=== PATIENT | male | born 1965 | race Caucasian/White ===

== ENCOUNTER 2020-10-25 15:24 | Inpatient (IN) | payer SELFPAY ==
--- NOTE | 2020-10-25 16:06 | Event Note ---
ED Screening Note ED Screening Note: Language line used for Turkmen interpretation Patient had an injury 3 weeks ago He states that he had a friend use a needle to open and drain and reports that there was pus There is now swelling and redness to the medial right ankle Patient is a diabetic no allergies to meds This initial assessment/diagnostic orders/clinical plan/treatment(s) is/are subject to change based on patients health status, clinical progression and re- assessment by fellow clinical providers in the ED. Further treatment and workup at subsequent clinical providers discretion. Patient/guardian urged not to elope from the ED as their condition may be serious if not clinically assessed and managed. Initial orders include: labs, xr, ekg
[2020-10-25 16:31] LABS: Hematocrit 44.5 % (35.5-45.6); Hemoglobin 14.7 gm/dl (11.8-15.2); Mean Corpuscular HGB Conc 33 % (32-34); Mean Corpuscular Volume 92 fl (84-94); Platelet Count 314 K/mm3 (140-440); Red Blood Count 4.82 M/mm3 (3.65-5.03); Red Cell Distribution Width 13.5 % (13.2-15.2)
[2020-10-25 16:48] LABS: Alanine Aminotransferase 59 units/L (7-56); Albumin 3.4 g/dL (3.9-5); BUN/Creatinine Ratio 15; Blood Urea Nitrogen 12 mg/dL (9-20); Calcium 9.7 mg/dL (8.4-10.2); Hemolysis Index 12
[2020-10-25] MEDS ORDERED: VANCOMYCIN/NS 1 GM/250 ML 1 GM/250 ML BAG IV ONE (16:55)
[2020-10-25] MEDS ORDERED: CEFEPIME/NS 1 GM/100 ML 1 GM/100 ML BAG IV ONE (16:55)
[2020-10-25] MEDS ORDERED: ONDANSETRON 4 MG/2 ML INJ IV ONE (16:56)
[2020-10-25] MEDS ORDERED: fentaNYL 100 MCG/2 ML INJ IV ONE (16:56)
[2020-10-25] MEDS ORDERED: SODIUM CHLORIDE 0.9% 1000 ML 1,000 ML IV ONE ×2 (16:56)
--- NOTE | 2020-10-25 17:01 | Emergency Department Report ---
HPI - General Chief Complaint: Extremity Injury, Lower Time Seen by Provider: 10/25/20 16:03 - [facility] HPI: Room 6 The patient is a 55-year-old male present with a chief complaint of right foot pain and swelling. The patient states for the past 3 weeks he noticed swelling initially at the heel of his right foot. This time progressed the swelling increased. Patient states the foot continued to swell and developed erythema and today developed a yellow drainage. Patient denies history of fever. Patient is diabetic ED Past Medical Hx - Past Medical History Hx Diabetes: Yes - Surgical History Past Surgical History?: No - Family History Family history: no significant - Social History Smoking Status: Never Smoker Substance Use Type: None (Denies illicit drug use), Alcohol (Moderate) ED Review of Systems ROS: Stated complaint: RT FT SWOLLEN PAIN DIABETIC Other details as noted in HPI Constitutional: denies: fever Eyes: denies: eye pain ENT: denies: throat pain Respiratory: no symptoms reported Cardiovascular: denies: chest pain Endocrine: no symptoms reported Gastrointestinal: denies: abdominal pain Genitourinary: denies: dysuria Musculoskeletal: myalgia Skin: change in color Neurological: denies: headache Physical Exam - Physical Exam Vital Signs: Vital Signs 10/25/20 15:52 Temperature 99.1 F Pulse Rate 159 H Respiratory 20 Rate Blood Pressure 136/89 O2 Sat by Pulse 98 Oximetry Physical Exam: GENERAL: The patient is well-developed well-nourished male lying on stretcher not appearing to be in acute distress. [] HEENT: Normocephalic. Atraumatic. Extraocular motions are intact. Patient has moist mucous membranes. NECK: Supple. Trachea midline CHEST/LUNGS: Clear to auscultation. There is no respiratory distress noted. HEART/CARDIOVASCULAR: Regular. There is tachycardia. There is no gallop rub or murmur. ABDOMEN: Abdomen is soft, nontender. Patient has normal bowel sounds. There is no abdominal distention. SKIN: There is erythema encompassing the medial aspect of the right ankle. The swelling and induration to the heel no swelling to the lateral aspect of the right ankle. The foot is tender to palpation with evidence of dried yellow discharge present on the heel NEURO: The patient is awake, alert, and oriented. The patient is cooperative. The patient has no focal neurologic deficits. The patient has normal speech MUSCULOSKELETAL: There is no evidence of acute injury. ED Course Vital Signs 10/25/20 15:52 Temperature 99.1 F Pulse Rate 159 H Respiratory 20 Rate Blood Pressure 136/89 O2 Sat by Pulse 98 Oximetry ED Medical Decision Making - Lab Data Result diagrams: 10/25/20 16:21 10/25/20 16:21 Laboratory Tests 10/25/20 10/25/20 10/25/20 16:21 16:21 16:21 WBC 21.1 H RBC 4.82 Hgb 14.7 Hct 44.5 MCV 92 MCH 31 MCHC 33 RDW 13.5 Plt Count 314 Seg Neutrophils % It Security Consultant Sodium 127 L Potassium 5.2 H Chloride 89.4 L Carbon Dioxide 26 Anion Gap 17 BUN 12 Creatinine 0.8 Estimated GFR > 60 BUN/Creatinine Ratio 15 Glucose 397 H Lactic Acid 1.90 Calcium 9.7 Total Bilirubin 0.80 AST 25 ALT 59 H Alkaline Phosphatase 350 H C-Reactive Protein 16.70 H Total Protein 8.4 H Albumin 3.4 L Albumin/Globulin Ratio 0.7 - EKG Data -: EKG Interpreted by Me EKG shows normal: sinus rhythm Rate: tachycardia (159 bpm) - EKG Data When compared to previous EKG there are: previous EKG unavailable Interpretation: nonspecific ST-T wave len - Radiology Data Radiology results: report reviewed (Right foot x-ray, right ankle x-ray), image reviewed (Right foot x-ray, right ankle x-ray) interpreted by me: Right foot x-ray-no acute fracture, no foreign body seen, no dislocation Right ankle x-ray-no acute fracture, no dislocation. No foreign body seen [facility] [address] [place] [address] X Ray Report Signed Patient: PATRICIA PATTERSON MR#: [id number] 9 : 1965 Acct:[id number] Age/Sex: 55 / M ADM Date: 10/25/20 Loc: ED Attending Dr: Ordering Physician: TOM LYNN Date of Service: 10/25/20 Procedure(s): XR foot 3+V RT Accession Number(s): [id number] cc: TOM LYNN Fluoro Time In Minutes: RIGHT ANKLE 3 VIEW(S) INDICATION / CLINICAL INFORMATION: injury 3 weeks ago, now swelling and redness COMPARISON: None available. FINDINGS: BONES / JOINT(S): No acute fracture or subluxation. No significant arthritis. SOFT TISSUES: There is calcific atherosclerosis ADDITIONAL FINDINGS: None. RIGHT FOOT 3 VIEW(S) INDICATION / CLINICAL INFORMATION: injury 3 weeks ago, now swelling and redness COMPARISON: None available. FINDINGS: BONES / JOINT(S): No acute fracture or subluxation. No significant arthritis. SOFT TISSUES: There is calcific atherosclerosis ADDITIONAL FINDINGS: None. Signer Name: Arpan Orosco DO Signed: 10/25/2020 5:18 PM Workstation Name: [employer] Transcribed By: OSMAR Dictated By: ARPAN OROSCO DO Electronically Authenticated By: ARPAN OROSCO DO Signed Date/Time: 10/25/201717 DD/ 16 TD/TT: Print Cancel [facility] [address] [place] [address] XRay Report Signed Patient: PATRICIA PATTERSON MR#: [id number] 9 : 1965 Acct:[id number] Age/Sex: 55 / M ADM Date: 10/25/20 Loc: ED Attending Dr: Ordering Physician: TOM LYNN Date of Service: 10/25/20 Procedure(s): XR ankle 3+V RT Accession Number(s): [id number] cc: TOM LYNN Fluoro Time In Minutes: RIGHT ANKLE 3 VIEW(S) INDICATION / CLINICAL INFORMATION: injury 3 weeks ago, now swelling and redness COMPARISON: None available. FINDINGS: BONES / JOINT(S): No acute fracture or subluxation. No significant arthritis. SOFT TISSUES: There is calcific atherosclerosis ADDITIONAL FINDINGS: None. RIGHT FOOT 3 VIEW(S) INDICATION / CLINICAL INFORMATION: injury 3 weeks ago, now swelling and redness COMPARISON: None available. FINDINGS: BONES / JOINT(S): No acute fracture or subluxation. No significant arthritis. SOFT TISSUES: There is calcific atherosclerosis ADDITIONAL FINDINGS: None. Signer Name: Arpan Orosco DO Signed: 10/25/2020 5:18 PM Workstation Name: [employer] Transcribed By: OSMAR Dictated By: ARPAN OROSCO DO Electronically Authenticated By: ARPAN OROSCO DO Signed Date/Time: 10/25/201717 DD/ 16 TD/TT: Print Cancel - Differential Diagnosis Diabetic foot infection Critical care attestation.: If time is entered above; I have spent that time in minutes in the direct care of this critically ill patient, excluding procedure time. ED Disposition Clinical Impression: Diabetic infection of right foot Disposition: OP ADMIT IP TO THIS HOSP Is pt being admited?: Yes Does the pt Need Aspirin: No Condition: Fair Instructions: Diabetes Mellitus Type 2 in Adults (ED) Time of Disposition: 17:58 (Hospitalist paged (Dr Abdalla))
--- NOTE | 2020-10-25 17:23 | XRay Report ---
RIGHT ANKLE 3 VIEW(S) INDICATION / CLINICAL INFORMATION: injury 3 weeks ago, now swelling and redness COMPARISON: None available. FINDINGS: BONES / JOINT(S): No acute fracture or subluxation. No significant arthritis. SOFT TISSUES: There is calcific atherosclerosis ADDITIONAL FINDINGS: None. RIGHT FOOT 3 VIEW(S) INDICATION / CLINICAL INFORMATION: injury 3 weeks ago, now swelling and redness COMPARISON: None available. FINDINGS: BONES / JOINT(S): No acute fracture or subluxation. No significant arthritis. SOFT TISSUES: There is calcific atherosclerosis ADDITIONAL FINDINGS: None. Signer Name: Arpan Ferrara DO Signed: 10/25/2020 5:18 PM Workstation Name: [email or web address]
[2020-10-25 17:54] LABS: RBC Morphology Normal; Total Cells Counted 100
[2020-10-25] MEDS ORDERED: ONDANSETRON 4 MG/2 ML INJ IV PRN (22:49)
--- NOTE | 2020-10-25 22:49 | History and Physical Report ---
History of Present Illness Date of examination: 10/25/20 Date of admission: 10/25/20 18:00 Chief complaint: Right ankle swelling and drainage for 1 week History of present illness: 55-year-old male with history of diabetes noncompliance has been having 3 weeks swelling of the right ankle and the heel with small amount of drainage on the medial part of the right ankle. Also redness on the right ankle and painful. Patient has not been taking any medications for his diabetes. Poor historian and language barrier present. No fever or chills. Pain is about 6 on a scale of 1-10. - Past Medical History Hx Diabetes: Yes - Surgical History Past Surgical History?: No - Family History Family history: no significant - Social History Smoking Status: Never Smoker Substance Use Type: None (Denies illicit drug use), Alcohol (Moderate) Review of Systems ROS: Stated complaint: RT FT SWOLLEN PAIN DIABETIC Other details as noted in HPI Constitutional: denies: fever Eyes: denies: eye pain ENT: denies: throat pain Respiratory: no symptoms reported Cardiovascular: denies: chest pain Endocrine: no symptoms reported Gastrointestinal: denies: abdominal pain Genitourinary: denies: dysuria Musculoskeletal: myalgia Skin: change in color Neurological: denies: headache Medications and Allergies Allergies Allergy/AdvReac Type Severity Reaction Status Date / Time No Known Allergies Allergy Unverified 10/25/20 17:13 Exam - Constitutional Vitals: Temp Pulse Resp BP Pulse Ox 99.1 F 160 H 20 114/71 98 10/25/20 15:52 10/25/20 21:58 10/25/20 21:58 10/25/20 21:58 10/25/20 21:58 General appearance: Present: no acute distress, well-nourished - EENT Eyes: Present: PERRL ENT: hearing intact, clear oral mucosa - Neck Neck: Present: supple, normal ROM - Respiratory Respiratory effort: normal Respiratory: bilateral: CTA - Cardiovascular Heart rate: 78 Rhythm: regular Heart Sounds: Present: S1 & S2. Absent: rub, click - Extremities Extremities: pulses symmetrical, No edema, abnormal (Right ankle erythema present with slight drainage on the medial aspect. Also the lateral aspect of the heel is swollen.) Peripheral Pulses: within normal limits - Abdominal General gastrointestinal: Present: soft, non-tender, non-distended, normal bowel sounds Male genitourinary: Present: normal - Integumentary Integumentary: Present: clear, warm, dry - Musculoskeletal Musculoskeletal: gait normal, strength equal bilaterally - Psychiatric Psychiatric: appropriate mood/affect, intact judgment & insight - Neurologic Neurologic: CNII-XII intact, moves all extremities Results - Labs CBC & Chem 7: 10/26/20 04:31 10/26/20 04:31 Labs: Laboratory Last Values WBC 21.1 K/mm3 (4.5-11.0) H 10/25/20 16:21 RBC 4.82 M/mm3 (3.65-5.03) 10/25/20 16:21 Hgb 14.7 gm/dl (11.8-15.2) 10/25/20 16:21 Hct 44.5 % (35.5-45.6) 10/25/20 16:21 MCV 92 fl (84-94) 10/25/20 16:21 MCH 31 pg (28-32) 10/25/20 16:21 MCHC 33 % (32-34) 10/25/20 16:21 RDW 13.5 % (13.2-15.2) 10/25/20 16:21 Plt Count 314 K/mm3 (140-440) 10/25/20 16:21 Add Manual Diff Complete 10/25/20 16:21 Total Counted 100 10/25/20 16:21 Seg Neutrophils % Painter And Decorator 10/25/20 16:21 Seg Neuts % (Manual) 92.0 % (40.0-70.0) H 10/25/20 16:21 Lymphocytes % (Manual) 4.0 % (13.4-35.0) L 10/25/20 16:21 Monocytes % (Manual) 4.0 % (0.0-7.3) 10/25/20 16:21 Nucleated RBC % Not Reportable 10/25/20 16: Seg Neutrophils # Man 19.4 K/mm3 (1.8-7.7) H 10/25/20 16:21 Band Neutrophils # 0.0 K/mm3 10/25/20 16:21 Lymphocytes # (Manual) 0.8 K/mm3 (1.2-5.4) L 10/25/20 16:21 Abs React Lymphs (Man) 0.0 K/mm3 10/25/20 16:21 Monocytes # (Manual) 0.8 K/mm3 (0.0-0.8) 10/25/20 16:21 Eosinophils # (Manual) 0.0 K/mm3 (0.0-0.4) 10/25/20 16:21 Basophils # (Manual) 0.0 K/mm3 (0.0-0.1) 10/25/20 16:21 Metamyelocytes # 0.0 K/mm3 10/25/20 16:21 Myelocytes # 0.0 K/mm3 10/25/20 16:21 Promyelocytes # 0.0 K/mm3 10/25/20 16:21 Blast Cells # 0.0 K/mm3 10/25/20 16:21 WBC Morphology Not Reportable 10/25/20 16:21 Hypersegmented Neuts Not Reportable 10/25/20 16:21 Hyposegmented Neuts Not Reportable 10/25/20 16:21 Hypogranular Neuts Not Reportable 10/25/20 16:21 Smudge Cells Not Reportable 10/25/20 16:21 Toxic Granulation Not Reportable 10/25/20 16:21 Toxic Vacuolation Not Reportable 10/25/20 16:21 Dohle Bodies Not Reportable 10/25/20 16:21 Pelger-Huet Anomaly Not Reportable 10/25/20 16:21 Love Rods Not Reportable 10/25/20 16:21 Platelet Estimate Not Reportable 10/25/20 16:21 Clumped Platelets Not Reportable 10/25/20 16:21 Plt Clumps, EDTA Not Reportable 10/25/20 16:21 Large Platelets Not Reportable 10/25/20 16:21 Giant Platelets Not Reportable 10/25/20 16:21 Platelet Satelliting Not Reportable 10/25/20 16:21 Plt Morphology Comment Not Reportable 10/25/20 16:21 RBC Morphology Normal 10/25/20 16:21 Dimorphic RBCs Not Reportable 10/25/20 16:21 Polychromasia Not Reportable 10/25/20 16:21 Hypochromasia Not Reportable 10/25/20 16:21 Poikilocytosis Not Reportable 10/25/20 16:21 Anisocytosis Not Reportable 10/25/20 16:21 Microcytosis Not Reportable 10/25/20 16:21 Macrocytosis Not Reportable 10/25/20 16:21 Spherocytes Not Reportable 10/25/20 16:21 Pappenheimer Bodies Not Reportable 10/25/20 16:21 Sickle Cells Not Reportable 10/25/20 16:21 Target Cells Not Reportable 10/25/20 16:21 Tear Drop Cells Not Reportable 10/25/20 16:21 Ovalocytes Not Reportable 10/25/20 16:21 Helmet Cells Not Reportable 10/25/20 16:21 Paz-Klagetoh Bodies Not Reportable 10/25/20 16:21 Elmont Rings Not Reportable 10/25/20 16:21 Robinson Cells Not Reportable 10/25/20 16:21 Bite Cells Not Reportable 10/25/20 16:21 Crenated Cell Not Reportable 10/25/20 16:21 Elliptocytes Not Reportable 10/25/20 16:21 Acanthocytes (Spur) Not Reportable 10/25/20 16:21 Rouleaux Not Reportable 10/25/20 16:21 Hemoglobin C Crystals Not Reportable 10/25/20 16:21 Schistocytes Not Reportable 10/25/20 16:21 Malaria parasites Not Reportable 10/25/20 16:21 Brandon Bodies Not Reportable 10/25/20 16:21 Hem Pathologist Commnt No 10/25/20 16:21 Sodium 127 mmol/L (137-145) L 10/25/20 16:21 Potassium 5.2 mmol/L (3.6-5.0) H 10/25/20 16:21 Chloride 89.4 mmol/L (98-107) L 10/25/20 16:21 Carbon Dioxide 26 mmol/L (22-30) 10/25/20 16:21 Anion Gap 17 mmol/L 10/25/20 16:21 BUN 12 mg/dL (9-20) 10/25/20 16:21 Creatinine 0.8 mg/dL (0.8-1.3) 10/25/20 16:21 Estimated GFR > 60 ml/min 10/25/20 16:21 BUN/Creatinine Ratio 15 % 10/25/20 16:21 Glucose 397 mg/dL (75-100) H 10/25/20 16:21 Lactic Acid 1.90 mmol/L (0.7-2.0) 10/25/20 16:21 Calcium 9.7 mg/dL (8.4-10.2) 10/25/20 16:21 Total Bilirubin 0.80 mg/dL (0.1-1.2) 10/25/20 16:21 AST 25 units/L (5-40) 10/25/20 16:21 ALT 59 units/L (7-56) H 10/25/20 16:21 Alkaline Phosphatase 350 units/L (35-129) H 10/25/20 16:21 C-Reactive Protein 16.70 mg/dL (0.00-1.30) H 10/25/20 16:21 Total Protein 8.4 g/dL (6.3-8.2) H 10/25/20 16:21 Albumin 3.4 g/dL (3.9-5) L 10/25/20 16:21 Albumin/Globulin Ratio 0.7 % 10/25/20 16:21 Microbiology: Microbiology 10/25/20 16:21 Peripheral/Venous Blood Culture - Preliminary Culture in Progress 10/25/20 16:26 Peripheral/Venous Blood Culture - Preliminary Culture in Progress - Imaging and Cardiology Imaging and Cardiology: Ankle x-ray Calcific atherosclerosis No mention of soft tissues Foot x-ray No acute findings Assessment and Plan Advance Directives: Yes (Full code) VTE prophylaxis?: Chemical Plan of care discussed with patient/family: Yes - Patient Problems (1) Cellulitis of right foot Current Visit: Yes Status: Acute Plan to address problem: Right ankle swollen with drainage on the medial aspect There may be an underlying small abscess Surgical consult requested X-ray of the foot and ankle not helpful IV Unasyn and vancomycin initiated (2) T2DM (type 2 diabetes mellitus) Current Visit: Yes Status: Chronic Qualifiers: Diabetes mellitus intermediate manager insulin use: unspecified intermediate manager insulin use status Plan to address problem: Patient initiated on insulin coverage for now Diabetes education Patient to be initiated on insulin 70/30 twice a day with high-dose sliding scale coverage (3) DVT prophylaxis Current Visit: Yes Status: Acute Plan to address problem: On heparin and GI prophylaxis
[2020-10-25] MEDS ORDERED: SODIUM CHLORIDE 0.9% 1000 ML 1,000 ML IV SCH (23:00)
[2020-10-25] MEDS ORDERED: VANCOMYCIN PHARMACY TO DOSE IV SCH (23:00)
[2020-10-26] MEDS: AMPICILLIN/SULBACTA 3GM/100ML 3 GM/100 ML BAG IV SCH ×4 (00:13→16:59)
[2020-10-26] MEDS: HYDROmorphone 1 MG/1 ML INJ IV PRN ×2 (01:31→10:15)
[2020-10-26] MEDS ORDERED: SODIUM CHLORIDE 0.9% 1000 ML 1,000 ML IV SCH (02:13)
[2020-10-26] MEDS: dilTIAZem 60 MG TAB PO SCH ×3 (02:35→17:00)
[2020-10-26] MEDS ORDERED: dilTIAZem 25 MG/5 ML INJ IV ONE (03:50)
[2020-10-26] MEDS: ACETAMINOPHEN 325 MG TAB PO PRN ×2 (04:18→21:28)
[2020-10-26] MEDS: oxyCODONE /ACETAMINOPHEN 5-325MG TAB PO PRN ×2 (04:30→17:00)
[2020-10-26] MEDS: VANCOMYCIN 1,250 MG in SODIUM CHLORIDE 0.9% 250ML 250 ML IV SCH ×2 (05:00→18:00)
[2020-10-26 05:23] LABS: Basophils # (Auto) 0.1 K/mm3 (0.0-0.1); Basophils % (Auto) 0.3 % (0.0-1.8); Eosinophils # (Auto) 0.2 K/mm3 (0.0-0.4); Hematocrit 38.3 % (35.5-45.6); Hemoglobin 13.1 gm/dl (11.8-15.2); Lymphocytes % (Auto) 6.2 % (13.4-35.0); Mean Corpuscular HGB Conc 34 % (32-34); Mean Corpuscular Volume 91 fl (84-94); Monocytes % (Auto) 5.9 % (0.0-7.3); Platelet Count 245 K/mm3 (140-440); Red Blood Count 4.19 M/mm3 (3.65-5.03); Red Cell Distribution Width 13.2 % (13.2-15.2)
[2020-10-26 05:41] LABS: Alanine Aminotransferase 40 units/L (7-56); Albumin 2.8 g/dL (3.9-5); Blood Urea Nitrogen 9 mg/dL (9-20); Calcium 8.4 mg/dL (8.4-10.2); Hemolysis Index 7
[2020-10-26 05:44] LABS: BUN/Creatinine Ratio 15
[2020-10-26] MEDS ORDERED: FAMOTIDINE 20 MG/2 ML INJ IV SCH (08:00)
--- NOTE | 2020-10-26 09:50 | Electrocardiograph Report ---
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 Right axis deviation Repolarization abnormality, prob rate related Borderline ST elevation, anterior leads Prolonged QT interval No previous ECG available for comparison Electronically Signed On 10-26-2020 9:49:55 EDT by Nam Cordova
[2020-10-26] MEDS ORDERED: HEPARIN 5,000 UNIT/1 ML VIAL SUB-Q SCH (10:00)
[2020-10-26] MEDS: INSULIN LISPRO 100 UNIT/ML SUB-Q SCH ×4 (10:12→21:32)
[2020-10-26] MEDS: INSULIN NPH/REGULAR 70/30 INJ SUB-Q SCH ×2 (10:12→16:59)
[2020-10-26] MEDS: HEPARIN 5,000 UNIT/1 ML VIAL SUB-Q SCH ×2 (10:15→21:29)
--- NOTE | 2020-10-26 14:03 | Consultation ---
History of Present Illness Consult date: 10/26/20 Chief complaint: Foot infection - History of present illness History of present illness: 35-year-old male, Cam[place]onian-speaking only, with a history of diabetes who presents to the emergency room with swelling of his right ankle. Patient states is been present for 3 weeks with a small amount of drainage from the ankle area. He sta tish there is also redness. There is sharp pain in the area 6 out of 10 in severity. According to the chart he has not been taking any medications for his diabetes. Surgery is consulted for a right lower extremity abscess. T-max 99.8. Past History Past Medical History: diabetes Past Surgical History: No surgical history Social history: no significant social history Family history: no significant family history Medications and Allergies Allergies Allergy/AdvReac Type Severity Reaction Status Date / Time No Known Allergies Allergy Unverified 10/25/20 17:13 Active Meds: Active Medications Acetaminophen (Acetaminophen 325 Mg Tab) 650 mg PO Q4H PRN PRN Reason: Pain MILD(1-3)/Fever >100.5/LONG Last Admin: 10/26/20 04:18 Dose: 650 mg Documented by: Diltiazem HCl (Diltiazem 60 Mg Tab) 60 mg PO Q8H [facility] Last Admin: 10/26/20 12:03 Dose: 60 mg Documented by: Famotidine (Famotidine 20 Mg Tab) 20 mg PO BID [facility] Heparin Sodium (Porcine) (Heparin 5,000 Unit/1 Ml Vial) 5,000 unit SUB-Q Q12HR [facility] Last Admin: 10/26/20 10:15 Dose: 5,000 unit Documented by: Hydromorphone HCl (Hydromorphone 1 Mg/1 Ml Inj) 0.5 mg IV Q3H PRN PRN Reason: Pain , Severe (7-10) Last Admin: 10/26/20 10:15 Dose: 0.5 mg Documented by: Ampicillin Sodium/Sulbactam Sodium (Unasyn/Ns 3 Gm/100 Ml) 3 gm in 100 mls @ 100 mls/hr IV Q6HR [facility]; Protocol Last Admin: 10/26/20 12:03 Dose: 100 mls/hr Documented by: Vancomycin HCl 1,250 mg/ (Sodium Chloride) 275 mls @ 166.667 mls/hr IV Q12H [facility] Last Admin: 10/26/20 05:00 Dose: 166.667 mls/hr Documented by: Sodium Chloride (Nacl 0.9% 1000 Ml) 1,000 mls @ 110 mls/hr IV DIRECT [facility] Insulin Human Isoph/Insulin Regular (Insulin Nph/Regular 70/30 Inj) 16 unit SUB-Q BIDDIAB [facility] Last Admin: 10/26/20 10:12 Dose: 16 unit Documented by: Insulin Human Lispro (Insulin Lispro 100 Unit/Ml) 0 unit SUB-Q ACHS [facility]; Protocol Last Admin: 10/26/20 12:03 Dose: 3 unit Documented by: Ondansetron HCl (Ondansetron 4 Mg/2 Ml Inj) 4 mg IV Q8H PRN PRN Reason: Nausea And Vomiting Oxycodone/Acetaminophen (Oxycodone /Acetaminophen 5-325mg Tab) 1 tab PO Q6H PRN PRN Reason: Pain, Moderate (4-6) Last Admin: 10/26/20 04:30 Dose: 1 tab Documented by: Sodium Chloride (Sodium Chloride 0.9% 10 Ml Flush Syringe) 10 ml IV BID [facility] Last Admin: 10/26/20 10:16 Dose: 10 ml Documented by: Sodium Chloride (Sodium Chloride 0.9% 10 Ml Flush Syringe) 10 ml IV PRN PRN PRN Reason: LINE FLUSH Review of Systems All systems: negative (10 point ROS performed and negative except for that listed in HPI) Exam Vital Signs Temp Pulse Resp BP Pulse Ox 99.1 F 159 H 20 136/89 98 10/25/20 15:52 10/25/20 15:52 10/25/20 15:52 10/25/20 15:52 10/25/20 15:52 Narrative exam: Gen.: Awake, alert, oriented x3. No apparent distress ENT: Trachea midline. No lymphadenopathy. No scleral icterus or conjunctival pallor CV: S1, S2 present Respiratory: No audible wheezes Extremities: Right foot and ankle edema. Foot is warm. No palpable pulse. There is a abscess of the medial ankle with surrounding erythema. There is a pinpoint opening with purulent drainage. Results - Labs 10/26/20 04:31 10/26/20 04:31 Abnormal lab results 10/25/20 10/25/20 10/26/20 Range/Units 16:21 16:21 04:31 WBC 21.1 H 16.5 H (4.5-11.0) K/mm3 Lymph % (Auto) 6.2 L (13.4-35.0) % Lymph # (Auto) 1.0 L (1.2-5.4) K/mm3 [place] # (Auto) 1.0 H (0.0-0.8) K/mm3 Seg Neutrophils % 86.6 H (40.0-70.0) % Seg Neuts % (Manual) 92.0 H (40.0-70.0) % Lymphocytes % (Manual) 4.0 L (13.4-35.0) % Seg Neutrophils # 14.3 H (1.8-7.7) K/mm3 Seg Neutrophils # Man 19.4 H (1.8-7.7) K/mm3 Lymphocytes # (Manual) 0.8 L (1.2-5.4) K/mm3 Sodium 127 L (137-145) mmol/L Potassium 5.2 H (3.6-5.0) mmol/L Chloride 89.4 L (98-107) mmol/L Creatinine (0.8-1.3) mg/dL Glucose 397 H (75-100) mg/dL POC Glucose (70-105) mg/dL ALT 59 H (7-56) units/L Alkaline Phosphatase 350 H (35-129) units/L C-Reactive Protein 16.70 H (0.00-1.30) mg/dL Total Protein 8.4 H (6.3-8.2) g/dL Albumin 3.4 L (3.9-5) g/dL 10/26/20 10/26/20 10/26/20 Range/Units 04:31 07:28 12:00 WBC (4.5-11.0) K/mm3 Lymph % (Auto) (13.4-35.0) % Lymph # (Auto) (1.2-5.4) K/mm3 [place] # (Auto) (0.0-0.8) K/mm3 Seg Neutrophils % (40.0-70.0) % Seg Neuts % (Manual) (40.0-70.0) % Lymphocytes % (Manual) (13.4-35.0) % Seg Neutrophils # (1.8-7.7) K/mm3 Seg Neutrophils # Man (1.8-7.7) K/mm3 Lymphocytes # (Manual) (1.2-5.4) K/mm3 Sodium 132 L (137-145) mmol/L Potassium (3.6-5.0) mmol/L Chloride 97.5 L (98-107) mmol/L Creatinine 0.6 L (0.8-1.3) mg/dL Glucose 225 H (75-100) mg/dL POC Glucose 205 H 197 H (70-105) mg/dL ALT (7-56) units/L Alkaline Phosphatase 260 H (35-129) units/L C-Reactive Protein (0.00-1.30) mg/dL Total Protein (6.3-8.2) g/dL Albumin 2.8 L (3.9-5) g/dL Diabetes panel 10/25/20 10/26/20 Range/Units 16: 04:31 Sodium 127 L 132 L (137-145) mmol/L Potassium 5.2 H 4.5 (3.6-5.0) mmol/L Chloride 89.4 L 97.5 L (98-107) mmol/L Carbon Dioxide 26 23 (22-30) mmol/L BUN 12 9 (9-20) mg/dL Creatinine 0.8 0.6 L (0.8-1.3) mg/dL Glucose 397 H 225 H (75-100) mg/dL Calcium 9.7 8.4 (8.4-10.2) mg/dL AST 25 11 (5-40) units/L ALT 59 H 40 (7-56) units/L Alkaline Phosphatase 350 H 260 H (35-129) units/L Total Protein 8.4 H 7.1 (6.3-8.2) g/dL Albumin 3.4 L 2.8 L (3.9-5) g/dL Calcium panel 10/25/20 10/26/20 Range/Units 16:21 04:31 Calcium 9.7 8.4 (8.4-10.2) mg/dL Albumin 3.4 L 2.8 L (3.9-5) g/dL Pituitary panel 10/25/20 10/26/20 Range/Units 16:21 04:31 Sodium 127 L 132 L (137-145) mmol/L Potassium 5.2 H 4.5 (3.6-5.0) mmol/L Chloride 89.4 L 97.5 L (98-107) mmol/L Carbon Dioxide 26 23 (22-30) mmol/L BUN 12 9 (9-20) mg/dL Creatinine 0.8 0.6 L (0.8-1.3) mg/dL Glucose 397 H 225 H (75-100) mg/dL Calcium 9.7 8.4 (8.4-10.2) mg/dL Adrenal panel 10/25/20 10/26/20 Range/Units 16:21 04:31 Sodium 127 L 132 L (137-145) mmol/L Potassium 5.2 H 4.5 (3.6-5.0) mmol/L Chloride 89.4 L 97.5 L (98-107) mmol/L Carbon Dioxide 26 23 (22-30) mmol/L BUN 12 9 (9-20) mg/dL Creatinine 0.8 0.6 L (0.8-1.3) mg/dL Glucose 397 H 225 H (75-100) mg/dL Calcium 9.7 8.4 (8.4-10.2) mg/dL Total Bilirubin 0.80 0.60 (0.1-1.2) mg/dL AST 25 11 (5-40) units/L ALT 59 H 40 (7-56) units/L Alkaline Phosphatase 350 H 260 H (35-129) units/L Total Protein 8.4 H 7.1 (6.3-8.2) g/dL Albumin 3.4 L 2.8 L (3.9-5) g/dL - Imaging Additional studies: Right foot x-ray Assessment and Plan 55 YO M with 1. right ankle abscess, wound 2. sepsis 2/2 #1 3. poorly controlled DM Plan: 1. Recommend incision and drainage of right ankle abscess. Consent obtained using [employer] ticket broker line 2. MRI R ankle to r/o osteo 3. vascular u/s RLE 4. Broad-spectrum abx 5. cultures to be obtained during I&D 6. wound care consult 7. strict glucose control 8. prn pain control 9. HbA1C pending Thank you for this consultation. Please call with any questions or concerns. Evaluation and treatment of this patient was during the time of the national and state emergency arising from COVID19 coronavirus pandemic. Treatment and procedures performed meet the current and available best practice and guidelines for patient during the COVID pandemic.
[2020-10-26] MEDS ORDERED: LIDOCAINE (1%) 10 MG/1 ML VIAL 20 ML MDV INFILTRATI ONE (14:16)
[2020-10-26] MEDS ORDERED: HYDROmorphone 1 MG/1 ML INJ IV ONE (14:17)
--- NOTE | 2020-10-26 15:02 | Event Note ---
Date: 10/26/20 A1c not done because of instrument problem Canceled the repeat A1c which I ordered
--- NOTE | 2020-10-26 15:42 | Procedure Note ---
Date of procedure: 10/26/20 Pre-op diagnosis: abscess left foot Post-op diagnosis: same Procedure: incision and drainage of left foot abscess Findings: Surgical site identified and marked. Area prepped with Betadine and draped in the usual sterile fashion. Timeout performed with patient's RN in the room. Local anesthetic infiltrated into the skin at the intended incision site. Using an 11 blade the pinpoint opening draining purulent fluid was opened by creating an inverted T incision in that area. The area was probed with a cotton tip applicator and a hemostat in order to break up any loculations. Greater than 10 cc of purulent fluid was able to be expressed from the wound. Cultures were obtained. The wound was irrigated and hemostasis ensured using pressure. The wound was then packed with 1 piece of Mesalt. This was covered with 4 x 4 gauze and wrapped with a Kerlix. The patient tolerated the procedure well. All sharps were disposed of appropriately. Anesthesia: local Surgeon: ALBERT CHATTERJEE Estimated blood loss: minimal Pathology: list (wound cultures) Specimen disposition: to lab Condition: stable Disposition: no change
--- NOTE | 2020-10-26 16:41 | Progress Note ---
Assessment and Plan Assessment and plan: 55-year-old male with history of diabetes noncompliance has been having 3 weeks swelling of the right ankle and the heel with small amount of drainage on the medial part of the right ankle. Also redness on the right ankle and painful. Patient has not been taking any medications for his diabetes. Poor historian and language barrier present. No fever or chills. Pain is about 6 on a scale of 1-10. (1) sepsis with cellulitis of foot, rule out septic arthritis of ankle Current Visit: Yes Status: Acute Plan to address problem: Right ankle swollen with drainage on the medial aspect Likely underlying small abscess Surgical consult requested and I/D to perform this afternoon. X-ray of the foot and ankle not helpful Low-grade fever, leukocytosis improving, lactic acid normal at the time of admission, blood cultures pending. Patient does not look toxic, mentating well with stable vital signs. However he has a sinus tachycardia reactive to sepsis/abscess, expiratory improved with I/D. IV Unasyn and vancomycin initiated Cultures from I/D to be sent to lab. (2) T2DM (type 2 diabetes mellitus), A1c 12.5 Current Visit: Yes Status: Chronic Qualifiers: Diabetes mellitus terminal clerk insulin use: unspecified terminal clerk insulin use status Plan to address problem: Apparently patient not taking any medication. Patient initiated on insulin coverage for now Diabetes education Patient to be initiated on insulin 70/30 twice a day with high-dose sliding scale coverage (3) DVT prophylaxis Current Visit: Yes Status: Acute Plan to address problem: On heparin and GI prophylaxis History Interval history: Patient speaks only Slovak. Is fully alert and oriented. Is very comfortable but has some sinus tachycardia. BP stable. T-max 99.8. Swelling and redness with skin opening at medial malleolus with scant drainage noted. Patient is scheduled for IND this afternoon by general surgery. Pain is controlled. Hospitalist Physical - Constitutional Vitals: Temp Pulse Resp BP Pulse Ox 97.6 F 155 H 16 110/68 97 10/26/20 11:59 10/26/20 11:59 10/26/20 11:59 10/26/20 11:59 10/26/20 11:59 General appearance: Present: no acute distress - EENT Eyes: Present: PERRL, EOM intact ENT: clear oral mucosa - Neck Neck: Present: supple, other (No JVD) - Respiratory Respiratory effort: normal Respiratory: bilateral: CTA - Cardiovascular Rhythm: other (Regular rhythm but tachycardia consistent with sinus tachycardia. No significant murmurs.) - Extremities Extremity abnormal: other (There is a skin breakdown at medial malleolus with significant swelling, warmth and erythema of the ankle itself. Cystic swelling in plantar aspect of heel with possible underlying abscess from tracking down.) - Abdominal General gastrointestinal: soft, non-tender, non-distended - Integumentary Integumentary: Absent: rash - Psychiatric Psychiatric: appropriate mood/affect Results - Labs CBC & Chem 7: 10/26/20 04:31 10/26/20 04:31 Labs: Laboratory Last Values WBC 16.5 K/mm3 (4.5-11.0) H 10/26/20 04:31 RBC 4.19 M/mm3 (3.65-5.03) 10/26/20 04:31 Hgb 13.1 gm/dl (11.8-15.2) 10/26/20 04:31 Hct 38.3 % (35.5-45.6) D 10/26/20 04:31 MCV 91 fl (84-94) 10/26/20 04:31 MCH 31 pg (28-32) 10/26/20 04:31 MCHC 34 % (32-34) 10/26/20 04:31 RDW 13.2 % (13.2-15.2) 10/26/20 04:31 Plt Count 245 K/mm3 (140-440) 10/26/20 04:31 Lymph % (Auto) 6.2 % (13.4-35.0) L 10/26/20 04:31 [place] % (Auto) 5.9 % (0.0-7.3) 10/26/20 04:31 Eos % (Auto) 1.0 % (0.0-4.3) 10/26/20 04:31 Baso % (Auto) 0.3 % (0.0-1.8) 10/26/20 04:31 Lymph # (Auto) 1.0 K/mm3 (1.2-5.4) L 10/26/20 04:31 [place] # (Auto) 1.0 K/mm3 (0.0-0.8) H 10/26/20 04:31 Eos # (Auto) 0.2 K/mm3 (0.0-0.4) 10/26/20 04:31 Baso # (Auto) 0.1 K/mm3 (0.0-0.1) 10/26/20 04:31 Add Manual Diff Complete 10/25/20 16:21 Total Counted 100 10/25/20 16:21 Seg Neutrophils % 86.6 % (40.0-70.0) H 10/26/20 04:31 Seg Neuts % (Manual) 92.0 % (40.0-70.0) H 10/25/20 16:21 Lymphocytes % (Manual) 4.0 % (13.4-35.0) L 10/25/20 16:21 Monocytes % (Manual) 4.0 % (0.0-7.3) 10/25/20 16:21 Nucleated RBC % Not Reportable 10/25/20 16:21 Seg Neutrophils # 14.3 K/mm3 (1.8-7.7) H 10/26/20 04:31 Seg Neutrophils # Man 19.4 K/mm3 (1.8-7.7) H 10/25/20 16:21 Band Neutrophils # 0.0 K/mm3 10/25/20 16:21 Lymphocytes # (Manual) 0.8 K/mm3 (1.2-5.4) L 10/25/20 16:21 Abs React Lymphs (Man) 0.0 K/mm3 10/25/20 16:21 Monocytes # (Manual) 0.8 K/mm3 (0.0-0.8) 10/25/20 16:21 Eosinophils # (Manual) 0.0 K/mm3 (0.0-0.4) 10/25/20 16:21 Basophils # (Manual) 0.0 K/mm3 (0.0-0.1) 10/25/20 16:21 Metamyelocytes # 0.0 K/mm3 10/25/20 16:21 Myelocytes # 0.0 K/mm3 10/25/20 16:21 Promyelocytes # 0.0 K/mm3 10/25/20 16:21 Blast Cells # 0.0 K/mm3 10/25/20 16:21 WBC Morphology Not Reportable 10/25/20 16:21 Hypersegmented Neuts Not Reportable 10/25/20 16:21 Hyposegmented Neuts Not Reportable 10/25/20 16:21 Hypogranular Neuts Not Reportable 10/25/20 16:21 Smudge Cells Not Reportable 10/25/20 16:21 Toxic Granulation Not Reportable 10/25/20 16:21 Toxic Vacuolation Not Reportable 10/25/20 16:21 Dohle Bodies Not Reportable 10/25/20 16:21 Pelger-Huet Anomaly Not Reportable 10/25/20 16:21 Love Rods Not Reportable 10/25/20 16:21 Platelet Estimate Not Reportable 10/25/20 16:21 Clumped Platelets Not Reportable 10/25/20 16:21 Plt Clumps, EDTA Not Reportable 10/25/20 16:21 Large Platelets Not Reportable 10/25/20 16:21 Giant Platelets Not Reportable 10/25/20 16:21 Platelet Satelliting Not Reportable 10/25/20 16:21 Plt Morphology Comment Not Reportable 10/25/20 16:21 RBC Morphology Normal 10/25/20 16:21 Dimorphic RBCs Not Reportable 10/25/20 16:21 Polychromasia Not Reportable 10/25/20 16:21 Hypochromasia Not Reportable 10/25/20 16:21 Poikilocytosis Not Reportable 10/25/20 16:21 Anisocytosis Not Reportable 10/25/20 16:21 Microcytosis Not Reportable 10/25/20 16:21 Macrocytosis Not Reportable 10/25/20 16:21 Spherocytes Not Reportable 10/25/20 16:21 Pappenheimer Bodies Not Reportable 10/25/20 16:21 Sickle Cells Not Reportable 10/25/20 16:21 Target Cells Not Reportable 10/25/20 16:21 Tear Drop Cells Not Reportable 10/25/20 16:21 Ovalocytes Not Reportable 10/25/20 16:21 Helmet Cells Not Reportable 10/25/20 16:21 [place] Bodies Not Reportable 10/25/20 16:21 [place] Rings Not Reportable 10/25/20 16:21 [place] Cells Not Reportable 10/25/20 16:21 Bite Cells Not Reportable 10/25/20 16:21 Crenated Cell Not Reportable 10/25/20 16:21 Elliptocytes Not Reportable 10/25/20 16:21 Acanthocytes (Spur) Not Reportable 10/25/20 16:21 Rouleaux Not Reportable 10/25/20 16:21 Hemoglobin C Crystals Not Reportable 10/25/20 16:21 Schistocytes Not Reportable 10/25/20 16:21 Malaria parasites Not Reportable 10/25/20 16:21 [place] Bodies Not Reportable 10/25/20 16:21 Hem Pathologist Commnt No 10/25/20 16:21 Sodium 132 mmol/L (137-145) L 10/26/20 04:31 Potassium 4.5 mmol/L (3.6-5.0) 10/26/20 04:31 Chloride 97.5 mmol/L (98-107) L 10/26/20 04:31 Carbon Dioxide 23 mmol/L (22-30) 10/26/20 04:31 Anion Gap 16 mmol/L 10/26/20 04:31 BUN 9 mg/dL (9-20) 10/26/20 04:31 Creatinine 0.6 mg/dL (0.8-1.3) L 10/26/20 04:31 Estimated GFR > 60 ml/min 10/26/20 04:31 BUN/Creatinine Ratio 15 % 10/26/20 04:31 Glucose 225 mg/dL (75-100) H 10/26/20 04:31 POC Glucose 197 mg/dL (70-105) H 10/26/20 12:00 Hemoglobin A1c 12.5 % (4-6) H 10/25/20 16:21 Lactic Acid 1.90 mmol/L (0.7-2.0) 10/25/20 16:21 Calcium 8.4 mg/dL (8.4-10.2) 10/26/20 04:31 Total Bilirubin 0.60 mg/dL (0.1-1.2) 10/26/20 04:31 AST 11 units/L (5-40) 10/26/20 04:31 ALT 40 units/L (7-56) 10/26/20 04:31 Alkaline Phosphatase 260 units/L (35-129) H 10/26/20 04:31 C-Reactive Protein 16.70 mg/dL (0.00-1.30) H 10/25/20 16:21 Total Protein 7.1 g/dL (6.3-8.2) 10/26/20 04:31 Albumin 2.8 g/dL (3.9-5) L 10/26/20 04:31 Albumin/Globulin Ratio 0.7 % 10/26/20 04:31 Microbiology: Microbiology 10/25/20 16:21 Peripheral/Venous Blood Culture - Preliminary Culture in Progress 10/25/20 16:26 Peripheral/Venous Blood Culture - Preliminary Culture in Progress Elizabeth/IV: Voiding Method Urinal Active Medications - Current Medications Current Medications: Generic Name Dose Route Start Last Admin Trade Name Freq PRN Reason Stop Dose Admin Acetaminophen 650 mg 10/25/20 22:49 10/26/20 04:18 Acetaminophen 325 Mg Tab PO 650 mg Q4H PRN Administration Pain MILD(1-3)/Fever >100.5/LONG Diltiazem HCl 60 mg 10/26/20 02:00 10/26/20 12:03 Diltiazem 60 Mg Tab PO 60 mg Q8H [facility] Administration Famotidine 20 mg 10/26/20 22:00 Famotidine 20 Mg Tab PO BID [facility] Heparin Sodium (Porcine) 5,000 unit 10/26/20 10:00 10/26/20 10:15 Heparin 5,000 Unit/1 Ml Vial SUB-Q 5,000 unit Q12HR [facility] Administration Hydromorphone HCl 0.5 mg 10/25/20 22:49 10/26/20 10:15 Hydromorphone 1 Mg/1 Ml Inj IV 0.5 mg Q3H PRN Administration Pain , Severe (7-10) Ampicillin Sodium/Sulbactam Sodium 3 gm in 100 mls @ 100 mls/hr 10/26/20 00:00 10/26/20 12:03 Unasyn/Ns 3 Gm/100 Ml IV 100 mls/hr Q6HR [facility] Administration Protocol Vancomycin HCl 1,250 mg/ 275 mls @ 166.667 mls/hr 10/26/20 06:00 10/26/20 05:00 Sodium Chloride IV 166.667 mls/hr Q12H [facility] Administration Sodium Chloride 1,000 mls @ 100 mls/hr 10/26/20 16:30 Nacl 0.9% 1000 Ml IV DIRECT [facility] Insulin Human Isoph/Insulin Regular 16 unit 10/26/20 08:00 10/26/20 10:12 Insulin Nph/Regular 70/30 Inj SUB-Q 16 unit BIDDIAB [facility] Administration Insulin Human Lispro 0 unit 10/26/20 07:30 10/26/20 12:03 Insulin Lispro 100 Unit/Ml SUB-Q 3 unit ACHS [facility] Administration Protocol Ondansetron HCl 4 mg 10/25/20 22:49 Ondansetron 4 Mg/2 Ml Inj IV Q8H PRN Nausea And Vomiting Oxycodone/Acetaminophen 1 tab 10/25/20 22:49 10/26/20 04:30 Oxycodone /Acetaminophen 5-325mg Tab PO 1 tab Q6H PRN Administration Pain, Moderate (4-6) Sodium Chloride 10 ml 10/26/20 08:00 10/26/20 10:16 Sodium Chloride 0.9% 10 Ml Flush Syringe IV 10 ml BID [facility] Administration Sodium Chloride 10 ml 10/25/20 22:49 Sodium Chloride 0.9% 10 Ml Flush Syringe IV PRN PRN LINE FLUSH Nutrition/Malnutrition Assess - Dietary Evaluation Nutrition/Malnutrition Findings: Nutrition Notes Start: 10/26/20 12:56 Freq: Status: Active Protocol: Document 10/26/20 12:56 (Rec: 10/26/20 12:57 [id number]) Nutrition Notes Need for Assessment generated from: MD Order,Education Initial or Follow up Brief Note Current Diagnosis Diabetes Other Pertinent Diagnosis r ankle cellulitis Current Diet consistent CHO Subjective/Other Information MD consult for diet education and ONS. Pt denied diet education and accepted handout . Pt reports eating 75-100% of meals and no recent wt loss. Nutrition Intervention Revisit per MD consult or patient Sign Off request:
[2020-10-26] MEDS: SODIUM CHLORIDE 0.9% 1000 ML 1,000 ML IV SCH (17:01)
--- NOTE | 2020-10-26 17:27 | Vascular Lab Report ---
DUPLEX DOPPLER LOWER EXTREMITY ARTERIAL, BILATERAL INDICATION: diabetic foot wound, infection. TECHNIQUE: Arterial duplex examination of both lower extremities performed using B-mode, color flow and spectral Doppler assessment. FINDINGS: RIGHT: Common Femoral Artery: PSV 82 cm/sec. Triphasic waveform. Proximal SFA: PSV 95 cm/sec. Biphasic waveform. Mid SFA: PSV 98 cm/sec. Biphasic waveform. Distal SFA: PSV 87 cm/sec. Biphasic waveform. Popliteal artery: PSV 103 cm/sec. Biphasic waveform. Posterior tibial artery: PSV 125 cm/sec. Monophasic waveform. Dorsalis Pedis Artery: PSV 67 cm/sec. Biphasic waveform. IMPRESSION: Abnormal monophasic flow identified within the posterior tibial artery. No evidence of arterial occlu ludmila identified. Ankle-Brachial Index (ASHLEY): * Calcified arteries > 1.4 * Normal = 0.9-1.4 * Mild PAD = 0.7-0.89 * Moderate PAD = 0.51-0.69 * Severe PAD < 0.5 Doppler Waveform: * Triphasic is normal. * Biphasic is abnormal if clear transition from triphasic signal along vascular tree. * Monophasic is abnormal. Signer Name: Hari Lui MD Signed: 10/26/2020 5:22 PM Workstation Name: [id number]
[2020-10-26] MEDS: FAMOTIDINE 20 MG TAB PO SCH (21:29)
[2020-10-27] MEDS: AMPICILLIN/SULBACTA 3GM/100ML 3 GM/100 ML BAG IV SCH ×5 (00:46→23:32)
[2020-10-27] MEDS: HYDROmorphone 1 MG/1 ML INJ IV PRN ×2 (00:46→18:14)
[2020-10-27] MEDS: dilTIAZem 60 MG TAB PO SCH ×3 (01:00→18:14)
[2020-10-27] MEDS ORDERED: dilTIAZem 25 MG/5 ML INJ IV ONE (04:46)
[2020-10-27] MEDS: VANCOMYCIN 1,250 MG in SODIUM CHLORIDE 0.9% 250ML 250 ML IV SCH ×2 (05:59→18:00)
[2020-10-27] MEDS: SODIUM CHLORIDE 0.9% 1000 ML 1,000 ML IV SCH (06:06)
[2020-10-27] MEDS: INSULIN LISPRO 100 UNIT/ML SUB-Q SCH ×4 (07:04→22:36)
[2020-10-27] MEDS: oxyCODONE /ACETAMINOPHEN 5-325MG TAB PO PRN (07:12)
[2020-10-27] MEDS: INSULIN NPH/REGULAR 70/30 INJ SUB-Q SCH ×2 (08:03→17:03)
[2020-10-27] MEDS: HEPARIN 5,000 UNIT/1 ML VIAL SUB-Q SCH ×2 (10:02→22:30)
[2020-10-27] MEDS: FAMOTIDINE 20 MG TAB PO SCH ×2 (10:15→22:30)
[2020-10-27 11:20] LABS: Basophils # (Auto) 0.1 K/mm3 (0.0-0.1); Basophils % (Auto) 0.5 % (0.0-1.8); Eosinophils # (Auto) 0.1 K/mm3 (0.0-0.4); Eosinophils % (Auto) 1.1 % (0.0-4.3); Hematocrit 36.3 % (35.5-45.6); Hemoglobin 12.3 gm/dl (11.8-15.2); Lymphocytes # (Auto) 0.6 K/mm3 (1.2-5.4); Lymphocytes % (Auto) 4.7 % (13.4-35.0); Mean Corpuscular HGB Conc 34 % (32-34); Mean Corpuscular Volume 91 fl (84-94); Monocytes # (Auto) 0.7 K/mm3 (0.0-0.8); Monocytes % (Auto) 5.6 % (0.0-7.3); Platelet Count 259 K/mm3 (140-440); Red Blood Count 4.01 M/mm3 (3.65-5.03); Red Cell Distribution Width 13.1 % (13.2-15.2)
[2020-10-27 11:35] LABS: Alanine Aminotransferase 33 units/L (7-56); Albumin 2.9 g/dL (3.9-5); Blood Urea Nitrogen 6 mg/dL (9-20); Calcium 8.7 mg/dL (8.4-10.2); Hemolysis Index 2
[2020-10-27 11:47] LABS: BUN/Creatinine Ratio 12
--- NOTE | 2020-10-27 14:38 | Event Note ---
Date: 10/27/20 Attempted to see patient x2 today. Patient in MRI. Tachycardic, Afebrile. Arterial duplex RLE reviewed - no significant stenosis, vessel disease 55 YO M with 1. right ankle abscess, wound s/p incision and drainage POD 1 2. sepsis 2/2 #1 3. poorly controlled DM Plan: 1. Follow up I&D cultures 2. MRI R ankle to r/o osteo pending 3. Broad-spectrum abx 4. wound care consult. dressing change orders placed and discussed with patient RN who will change dressing when patient returns from MRI 5. strict glucose control 6. prn pain control 7. HbA1C pending 8. Rec cards consult for tachycardia Will follow up in am Thank you. Please call with any questions or concerns. Evaluation and treatment of this patient was during the time of the national and state emergency arising from COVID19 coronavirus pandemic. Treatment and procedures performed meet the current and available best practice and guidelines for patient during the COVID pandemic.
--- NOTE | 2020-10-27 16:46 | Magnetic Resonance Report ---
MR LE nonjoint RT with and without con INDICATION: right ankle infection, r/o osteo. TECHNIQUE: Multiplanar, multisequence MR images were obtained of right hindfoot with and without contrast. COMPARISON: Right foot x-ray 10/25/2020 FINDINGS: Moderate diffuse subcutaneous edema is present with 2 shallow ulcers/blisters seen along the plantar and medial aspect of the ankle. There is a focal cutaneous abscess medial aspect of the ankle measuri ng 2.3 x 0.6 cm in AP by transverse diameter is 3 image 13 with peripheral enhancement and central ne crosis corresponding postcontrast image. No abnormal bone marrow signal intensity is seen within the hindfoot or ankle to suggest osteomyelitis. 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 IMPRESSION: 1. Moderate cellulitis with developing abscess beneath the medial ulcer/soft tissue wound. 2. No MR evidence for osteomyelitis of right ankle or hindfoot Signer Name: Bryan Jenkins MD Signed: 10/27/2020 4:41 PM Workstation Name: [id number]
[2020-10-27] MEDS ORDERED: SODIUM CHLORIDE 0.9% 1000 ML 1,000 ML IV ONE (17:46)
--- NOTE | 2020-10-27 17:53 | Progress Note ---
Assessment and Plan Assessment and plan: 55-year-old male with history of diabetes noncompliance has been having 3 weeks swelling of the right ankle and the heel with small amount of drainage on the medial part of the right ankle. Also redness on the right ankle and painful. Patient has not been taking any medications for his diabetes. Poor historian and language barrier present. No fever or chills. Pain is about 6 on a scale of 1-10. 10/27/2020: Patient has no fever and leukocytosis progressively improving on antibiotics. However he has significant sinus tachycardia about 150. EKG confirms sinus tachycardia without acute ST/T changes. Troponin normal. BP okay. He is not hypoxic. 97% on room air. Lactic acid normal. Not acidotic. CBC and CMP unremarkable. Is mentating well. Does not appear toxic. Not in significant pain currently. Patient did undergo I&D and abscess drainage yesterday. There is serosanguineous drainage from the abscess opening. There is still significant swelling and erythema around it. Has good glycemic control currently. MRI showed abscess but no osteomyelitis. Patient denies chest pains, palpitations or dyspnea. Sinus tach and appears to be physiological to infection/abscess. May need further debridement/drainage. Blood cultures negative to date. Surgical cultures were likely sent but not updated yet. Will obtain treated for, lower extremity ultrasound for DVT and give 1 L normal saline bolus. Is currently receiving normal saline 100 mL/h maintenance dose. Discussed with the nursing staff. (1) sepsis with cellulitis of foot, rule out septic arthritis of ankle Current Visit: Yes Status: Acute Plan to address problem: Right ankle swollen with drainage on the medial aspect Likely underlying small abscess Surgical consult requested and I/D to perform this afternoon. X-ray of the foot and ankle not helpful Low-grade fever, leukocytosis improving, lactic acid normal at the time of admission, blood cultures pending. Patient does not look toxic, mentating well with stable vital signs. However he has a sinus tachycardia reactive to sepsis/abscess, expiratory improved with I/D. IV Unasyn and vancomycin initiated Cultures from I/D to be sent to lab. 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 Patient initiated on insulin coverage for now Diabetes education Patient to be initiated on insulin 70/30 twice a day with high-dose sliding scale coverage (3) DVT prophylaxis Current Visit: Yes Status: Acute Plan to address problem: On heparin and GI prophylaxis History Interval history: Patient has no fever and leukocytosis progress improving on antibiotics. However he has significant sinus tachycardia about 150. BP okay. He is not hypoxic. 97% on room air. Lactic acid normal. Is mentating well. Does not appear toxic. Not in significant pain currently. Patient did undergo I&D and abscess drainage yesterday. There is serosanguineous drainage from the abscess opening. There is still significant swelling and erythema around it. Has good glycemic control currently. MRI showed abscess but no osteomyelitis. Patient denies chest pains, palpitations or dyspnea. Hospitalist Physical - Constitutional Vitals: Temp Pulse Resp BP Pulse Ox 98.2 F 129 H 19 106/64 97 10/27/20 04:13 10/27/20 05:28 10/27/20 08:12 10/27/20 05:28 10/27/20 04:13 General appearance: Present: no acute distress, other (Is actually well- appearing and nontoxic.) - EENT Eyes: Present: PERRL, EOM intact ENT: clear oral mucosa - Neck Neck: Present: supple - Respiratory Respiratory effort: normal Respiratory: bilateral: CTA - Cardiovascular Rhythm: other (Sinus tachycardia without murmurs) - Extremities Extremity abnormal: other (Abscess opening under right medial malleolus with a diffuse swelling and erythema surrounding. Dorsalis pedis pulse palpable. Patient is able to move toes without much pain.) - Abdominal General gastrointestinal: soft, non-tender, non-distended - Integumentary Integumentary: Absent: rash - Psychiatric Psychiatric: appropriate mood/affect - Neurologic Neurologic: moves all extremities HEART Score - HEART Score Troponin: Troponin T < 0.010 ng/mL (0.00-0.029) 10/27/20 10:30 Results - Labs CBC & Chem 7: 10/27/20 10:30 10/27/20 10:30 Labs: Laboratory Last Values WBC 12.8 K/mm3 (4.5-11.0) H 10/27/20 10:30 RBC 4.01 M/mm3 (3.65-5.03) 10/27/20 10:30 Hgb 12.3 gm/dl (11.8-15.2) 10/27/20 10:30 Hct 36.3 % (35.5-45.6) 10/27/20 10:30 MCV 91 fl (84-94) 10/27/20 10:30 MCH 31 pg (28-32) 10/27/20 10:30 MCHC 34 % (32-34) 10/27/20 10:30 RDW 13.1 % (13.2-15.2) L 10/27/20 10:30 Plt Count 259 K/mm3 (140-440) 10/27/20 10:30 Lymph % (Auto) 4.7 % (13.4-35.0) L 10/27/20 10:30 [place] % (Auto) 5.6 % (0.0-7.3) 10/27/20 10:30 Eos % (Auto) 1.1 % (0.0-4.3) 10/27/20 10:30 Baso % (Auto) 0.5 % (0.0-1.8) 10/27/20 10:30 Lymph # (Auto) 0.6 K/mm3 (1.2-5.4) L 10/27/20 10:30 [place] # (Auto) 0.7 K/mm3 (0.0-0.8) 10/27/20 10:30 Eos # (Auto) 0.1 K/mm3 (0.0-0.4) 10/27/20 10:30 Baso # (Auto) 0.1 K/mm3 (0.0-0.1) 10/27/20 10:30 Add Manual Diff Complete 10/25/20 16:21 Total Counted 100 10/25/20 16:21 Seg Neutrophils % 88.1 % (40.0-70.0) H 10/27/20 10:30 Seg Neuts % (Manual) 92.0 % (40.0-70.0) H 10/25/20 16:21 Lymphocytes % (Manual) 4.0 % (13.4-35.0) L 10/25/20 16:21 Monocytes % (Manual) 4.0 % (0.0-7.3) 10/25/20 16:21 Nucleated RBC % Not Reportable 10/25/20 16:21 Seg Neutrophils # 11.2 K/mm3 (1.8-7.7) H 10/27/20 10:30 Seg Neutrophils # Man 19.4 K/mm3 (1.8-7.7) H 10/25/20 16:21 Band Neutrophils # 0.0 K/mm3 10/25/20 16:21 Lymphocytes # (Manual) 0.8 K/mm3 (1.2-5.4) L 10/25/20 16:21 Abs React Lymphs (Man) 0.0 K/mm3 10/25/20 16:21 Monocytes # (Manual) 0.8 K/mm3 (0.0-0.8) 10/25/20 16:21 Eosinophils # (Manual) 0.0 K/mm3 (0.0-0.4) 10/25/20 16:21 Basophils # (Manual) 0.0 K/mm3 (0.0-0.1) 10/25/20 16:21 Metamyelocytes # 0.0 K/mm3 10/25/20 16:21 Myelocytes # 0.0 K/mm3 10/25/20 16:21 Promyelocytes # 0.0 K/mm3 10/25/20 16:21 Blast Cells # 0.0 K/mm3 10/25/20 16:21 WBC Morphology Not Reportable 10/25/20 16:21 Hypersegmented Neuts Not Reportable 10/25/20 16:21 Hyposegmented Neuts Not Reportable 10/25/20 16:21 Hypogranular Neuts Not Reportable 10/25/20 16:21 Smudge Cells Not Reportable 10/25/20 16:21 Toxic Granulation Not Reportable 10/25/20 16:21 Toxic Vacuolation Not Reportable 10/25/20 16:21 Dohle Bodies Not Reportable 10/25/20 16:21 Pelger-Huet Anomaly Not Reportable 10/25/20 16:21 Love Rods Not Reportable 10/25/20 16:21 Platelet Estimate Not Reportable 10/25/20 16:21 Clumped Platelets Not Reportable 10/25/20 16:21 Plt Clumps, EDTA Not Reportable 10/25/20 16:21 Large Platelets Not Reportable 10/25/20 16:21 Giant Platelets Not Reportable 10/25/20 16:21 Platelet Satelliting Not Reportable 10/25/20 16:21 Plt Morphology Comment Not Reportable 10/25/20 16:21 RBC Morphology Normal 10/25/20 16:21 Dimorphic RBCs Not Reportable 10/25/20 16:21 Polychromasia Not Reportable 10/25/20 16:21 Hypochromasia Not Reportable 10/25/20 16:21 Poikilocytosis Not Reportable 10/25/20 16:21 Anisocytosis Not Reportable 10/25/20 16:21 Microcytosis Not Reportable 10/25/20 16:21 Macrocytosis Not Reportable 10/25/20 16:21 Spherocytes Not Reportable 10/25/20 16:21 Pappenheimer Bodies Not Reportable 10/25/20 16:21 Sickle Cells Not Reportable 10/25/20 16:21 Target Cells Not Reportable 10/25/20 16:21 Tear Drop Cells Not Reportable 10/25/20 16:21 Ovalocytes Not Reportable 10/25/20 16:21 Helmet Cells Not Reportable 10/25/20 16:21 Paz-Paulding Bodies Not Reportable 10/25/20 16:21 [place] Rings Not Reportable 10/25/20 16:21 [place] Cells Not Reportable 10/25/20 16:21 Bite Cells Not Reportable 10/25/20 16:21 Crenated Cell Not Reportable 10/25/20 16:21 Elliptocytes Not Reportable 10/25/20 16:21 Acanthocytes (Spur) Not Reportable 10/25/20 16:21 Rouleaux Not Reportable 10/25/20 16:21 Hemoglobin C Crystals Not Reportable 10/25/20 16:21 Schistocytes Not Reportable 10/25/20 16:21 Malaria parasites Not Reportable 10/25/20 16:21 [place] Bodies Not Reportable 10/25/20 16:21 Hem Pathologist Commnt No 10/25/20 16:21 Sodium 135 mmol/L (137-145) L 10/27/20 10:30 Potassium 3.8 mmol/L (3.6-5.0) 10/27/20 10:30 Chloride 97.8 mmol/L (98-107) L 10/27/20 10:30 Carbon Dioxide 29 mmol/L (22-30) 10/27/20 10:30 Anion Gap 12 mmol/L 10/27/20 10:30 BUN 6 mg/dL (9-20) L 10/27/20 10:30 Creatinine 0.5 mg/dL (0.8-1.3) L 10/27/20 10:30 Estimated GFR > 60 ml/min 10/27/20 10:30 BUN/Creatinine Ratio 12 % 10/27/20 10:30 Glucose 102 mg/dL (75-100) H 10/27/20 10:30 POC Glucose 219 mg/dL (70-105) H 10/27/20 16:17 Hemoglobin A1c 12.5 % (4-6) H 10/25/20 16:21 Lactic Acid 0.80 mmol/L (0.7-2.0) 10/27/20 10:30 Calcium 8.7 mg/dL (8.4-10.2) 10/27/20 10:30 Total Bilirubin 0.50 mg/dL (0.1-1.2) 10/27/20 10:30 AST 14 units/L (5-40) 10/27/20 10:30 ALT 33 units/L (7-56) 10/27/20 10:30 Alkaline Phosphatase 274 units/L (35-129) H 10/27/20 10:30 Troponin T < 0.010 ng/mL (0.00-0.029) 10/27/20 10:30 C-Reactive Protein 16.70 mg/dL (0.00-1.30) H 10/25/20 16:21 NT-Pro-B Natriuret Pep 507.9 pg/mL (0-900) 10/27/20 10:30 Total Protein 6.5 g/dL (6.3-8.2) 10/27/20 10:30 Albumin 2.9 g/dL (3.9-5) L 10/27/20 10:30 Albumin/Globulin Ratio 0.8 % 10/27/20 10:30 Microbiology: Microbiology 10/25/20 16:21 Peripheral/Venous Blood Culture - Preliminary NO GROWTH AFTER 24 HOURS 10/25/20 16:26 Peripheral/Venous Blood Culture - Preliminary NO GROWTH AFTER 24 HOURS Elizabeth/IV: Voiding Method Urinal Active Medications - Current Medications Current Medications: Generic Name Dose Route Start Last Admin Trade Name Freq PRN Reason Stop Dose Admin Acetaminophen 650 mg 10/25/20 22:49 10/26/20 21:28 Acetaminophen 325 Mg Tab PO 650 mg Q4H PRN Administration Pain MILD(1-3)/Fever >100.5/LONG Diltiazem HCl 60 mg 10/26/20 02:00 10/27/20 10:03 Diltiazem 60 Mg Tab PO 60 mg Q8H KAMERON Administration Famotidine 20 mg 10/26/20 22:00 10/26/20 21:29 Famotidine 20 Mg Tab PO 20 mg BID KAMERON Administration Heparin Sodium (Porcine) 5,000 unit 10/26/20 10:00 10/27/20 10:02 Heparin 5,000 Unit/1 Ml Vial SUB-Q 5,000 unit Q12HR KAMERON Administration Hydromorphone HCl 0.5 mg 10/25/20 22:49 10/27/20 00:46 Hydromorphone 1 Mg/1 Ml Inj IV 0.5 mg Q3H PRN Administration Pain , Severe (7-10) Ampicillin Sodium/Sulbactam Sodium 3 gm in 100 mls @ 100 mls/hr 10/26/20 00:00 10/27/20 05:59 Unasyn/Ns 3 Gm/100 Ml IV 100 mls/hr Q6HR KAMERON Administration Protocol Vancomycin HCl 1,250 mg/ 275 mls @ 166.667 mls/hr 10/26/20 06:00 10/27/20 05:59 Sodium Chloride IV 166.667 mls/hr Q12H KAMERON Administration Sodium Chloride 1,000 mls @ 100 mls/hr 10/26/20 16:30 10/27/20 06:06 Nacl 0.9% 1000 Ml IV 100 mls/hr DIRECT KAMERON Administration Sodium Chloride 1,000 mls @ 999 mls/hr 10/27/20 17:46 Nacl 0.9% 1000 Ml IV 10/27/20 18:46 BOLUS ONE Insulin Human Isoph/Insulin Regular 16 unit 10/26/20 08:00 10/27/20 17:03 Insulin Nph/Regular 70/30 Inj SUB-Q 16 unit BIDDIAB KAMERON Administration Insulin Human Lispro 0 unit 10/26/20 07:30 10/27/20 07:04 Insulin Lispro 100 Unit/Ml SUB-Q Not Given ACHS KAMERON Protocol Ondansetron HCl 4 mg 10/25/20 22:49 Ondansetron 4 Mg/2 Ml Inj IV Q8H PRN Nausea And Vomiting Oxycodone/Acetaminophen 1 tab 10/25/20 22:49 10/27/20 07:12 Oxycodone /Acetaminophen 5-325mg Tab PO 1 tab Q6H PRN Administration Pain, Moderate (4-6) Sodium Chloride 10 ml 10/26/20 08:00 10/26/20 21:33 Sodium Chloride 0.9% 10 Ml Flush Syringe IV 10 ml BID KAMERON Administration Sodium Chloride 10 ml 10/25/20 22:49 Sodium Chloride 0.9% 10 Ml Flush Syringe IV PRN PRN LINE FLUSH Nutrition/Malnutrition Assess - Dietary Evaluation Nutrition/Malnutrition Findings: Nutrition Notes Start: 10/26/20 12:56 Freq: Status: Active Protocol: Document 10/26/20 12:56 (Rec: 10/26/20 12:57 [id number]) Nutrition Notes Need for Assessment generated from: MD Order,Education Initial or Follow up Brief Note Current Diagnosis Diabetes Other Pertinent Diagnosis r ankle cellulitis Current Diet consistent CHO Subjective/Other Information MD consult for diet education and ONS. Pt denied diet education and accepted handout . Pt reports eating 75-100% of meals and no recent wt loss. Nutrition Intervention Revisit per MD consult or patient Sign Off request:
[2020-10-28] MEDS: dilTIAZem 60 MG TAB PO SCH ×3 (02:34→12:03)
[2020-10-28] MEDS: oxyCODONE /ACETAMINOPHEN 5-325MG TAB PO PRN ×3 (04:23→22:37)
[2020-10-28] MEDS: AMPICILLIN/SULBACTA 3GM/100ML 3 GM/100 ML BAG IV SCH ×4 (05:11→23:34)
[2020-10-28] MEDS: VANCOMYCIN 1,250 MG in SODIUM CHLORIDE 0.9% 250ML 250 ML IV SCH (06:04)
[2020-10-28] MEDS: INSULIN LISPRO 100 UNIT/ML SUB-Q SCH ×4 (08:51→22:32)
--- NOTE | 2020-10-28 09:21 | XRay Report ---
CHEST 1 VIEW INDICATION / CLINICAL INFORMATION: sob. COMPARISON: None available. FINDINGS: SUPPORT DEVICES: None. HEART / MEDIASTINUM: No significant abnormality. LUNGS / PLEURA: There is minimal patchy opacity in the left lung base which may reflect atelectasis v ersus developing pneumonia. There is no pleural effusion. No pneumothorax. ADDITIONAL FINDINGS: No significant additional findings. IMPRESSION: 1. Minimal patchy opacity in the left lung base may reflect subsegmental atelectasis versus developin g pneumonia in the appropriate clinical setting. Signer Name: Dior Powers MD Signed: 10/28/2020 9:17 AM Workstation Name: [id number]
[2020-10-28] MEDS: FAMOTIDINE 20 MG TAB PO SCH ×2 (09:28→22:32)
[2020-10-28] MEDS: HEPARIN 5,000 UNIT/1 ML VIAL SUB-Q SCH ×2 (09:28→22:32)
[2020-10-28] MEDS: INSULIN NPH/REGULAR 70/30 INJ SUB-Q SCH ×2 (09:28→17:19)
[2020-10-28 09:52] LABS: Basophils # (Auto) 0.1 K/mm3 (0.0-0.1); Basophils % (Auto) 0.9 % (0.0-1.8); Eosinophils # (Auto) 0.2 K/mm3 (0.0-0.4); Eosinophils % (Auto) 1.5 % (0.0-4.3); Hematocrit 39.1 % (35.5-45.6); Hemoglobin 12.9 gm/dl (11.8-15.2); Lymphocytes # (Auto) 0.8 K/mm3 (1.2-5.4); Lymphocytes % (Auto) 7.8 % (13.4-35.0); Mean Corpuscular HGB Conc 33 % (32-34); Mean Corpuscular Volume 92 fl (84-94); Monocytes # (Auto) 0.7 K/mm3 (0.0-0.8); Monocytes % (Auto) 6.7 % (0.0-7.3); Platelet Count 273 K/mm3 (140-440); Red Blood Count 4.25 M/mm3 (3.65-5.03); Red Cell Distribution Width 13.5 % (13.2-15.2)
[2020-10-28 09:54] LABS: Alanine Aminotransferase 35 units/L (7-56); Albumin 2.7 g/dL (3.9-5); Blood Urea Nitrogen 8 mg/dL (9-20); Calcium 8.9 mg/dL (8.4-10.2); Hemolysis Index 21
[2020-10-28 10:02] LABS: BUN/Creatinine Ratio 13
--- NOTE | 2020-10-28 10:34 | Electrocardiograph Report ---
[facility] Test Date: 2020-10-28 Test Time: 08:44:34 Pat Name: PATRICIA PATTERSON Department: Room: B316 1 Gender: M Inventory Planner: ISAIAH : 1965 Requested By: ONUR HURTADO Order Number: [id number] Reading MD: Nam Cordova Measurements Intervals [place] Rate: 152 P: -79 [place]: 43 QRS: 96 QRSD: 78 T: -58 QT: 305 QTc: 487 Interpretive Statements Sinus or ectopic atrial tachycardia,probable atrial flutter with 2:1 conduction. Compared to ECG 10/25/2020 16:17:32 Right-axis deviation no longer present Early repolarization no longer present ST (T wave) deviation no longer present Prolonged QT interval no longer present Electronically Signed On 10-28-2020 10:34:16 EDT by Nam Cordova
[2020-10-28] MEDS ORDERED: SODIUM CHLORIDE 0.9% 1000 ML 1,000 ML IV ONE (12:00)
--- NOTE | 2020-10-28 12:01 | Vascular Lab Report ---
DUPLEX DOPPLER LOWER EXTREMITY VEINS, BILATERAL INDICATION / CLINICAL INFORMATION: Right lower extremity cellulitis and sepsis; rule out DVT. TECHNIQUE: Duplex doppler imaging was performed through the veins of both lower extremities using ayah ous compression and other maneuvers. COMPARISON: None available. FINDINGS: RIGHT COMMON FEMORAL VEIN: Negative. RIGHT FEMORAL VEIN: Negative. RIGHT POPLITEAL VEIN: Negative. RIGHT CALF VEINS: Negative. LEFT COMMON FEMORAL VEIN: Negative. LEFT FEMORAL VEIN: Negative. LEFT POPLITEAL VEIN: Negative. LEFT CALF VEINS: Negative. ADDITIONAL FINDINGS: No abnormal mass or fluid collection is seen. IMPRESSION: No sonographic evidence for DVT in either lower extremity. Scribed by: Patience Evans RDMS, RVT Scribed: 10/28/2020 10:47 AM I have reviewed the images, agree with this report, and edited this report as needed. Signer Name: Redd Le MD Signed: 10/28/2020 11:56 AM Workstation Name: [id number]
--- NOTE | 2020-10-28 15:10 | Progress Note ---
Assessment and Plan 55 YO M with 1. right ankle abscess, wound s/p incision and drainage POD 2 2. sepsis 2/2 #1 3. poorly controlled DM - Arterial duplex RLE reviewed - no significant stenosis, vessel disease - MRI - 2.3x 0.6 cm cutaneous abscess of medial ankle without additional fluid collections or evidence of osteomyelitis. Reviewed images independently and with in house radiologist - "abscess" location is consistent with patient's open wound and packing. No additional fluid collections are noted. Plan: 1. Follow up I&D cultures 2. Broad-spectrum abx 3. RLE elevation 4. RN Dressing change orders placed 5. strict glucose control 6. prn pain control 7. HbA1C pending Thank you. Please call with any questions or concerns. Evaluation and treatment of this patient was during the time of the national and state emergency arising from COVID19 coronavirus pandemic. Treatment and procedures performed meet the current and available best practice and guidelines for patient during the COVID pandemic. Subjective Date of service: 10/28/20 Narrative: Patient seen and examined. Complains of pain in the right ankle. Afebrile. Objective Vital Signs - 12hr 10/28/20 10/28/20 10/28/20 04:22 04:23 08:00 Temperature 98.6 F 98.3 F Pulse Rate 156 H 156 H 148 H Respiratory 18 22 Rate Blood Pressure 107/72 107/72 Blood Pressure 94/68 [Left] O2 Sat by Pulse 89 96 Oximetry 10/28/20 11:20 Temperature 98.9 F Pulse Rate 154 H Respiratory 20 Rate Blood Pressure Blood Pressure 101/66 [Left] O2 Sat by Pulse 97 Oximetry - General physical appearance Narrative Exam: Gen.: Awake, alert, oriented x3. No apparent distress CV: S1, S2 present Respiratory: No audible wheezes Extremities: Right ankle with mild edema. Right ankle dressing and wound packing removed. 1 piece of Mesalt removed from wound. The wound appears clean with minimal purulent drainage from the inferior most aspect. There is erythema surrounding the wound bed but no additional fluctuance. There is tenderness to palpation. The wound was cleansed and packed with Mesalt. This was covered with gauze, ABD pad and wrapped with [place]. - Labs 10/28/20 09:14 10/28/20 09:14 Diabetes panel 10/28/20 Range/Units 09:14 Sodium 136 L (137-145) mmol/L Potassium 4.2 (3.6-5.0) mmol/L Chloride 99.5 (98-107) mmol/L Carbon Dioxide 29 (22-30) mmol/L BUN 8 L (9-20) mg/dL Creatinine 0.6 L (0.8-1.3) mg/dL Glucose 170 H (75-100) mg/dL Calcium 8.9 (8.4-10.2) mg/dL AST 17 (5-40) units/L ALT 35 (7-56) units/L Alkaline Phosphatase 308 H (35-129) units/L Total Protein 6.5 (6.3-8.2) g/dL Albumin 2.7 L (3.9-5) g/dL Calcium panel 10/28/20 Range/Units 09:14 Calcium 8.9 (8.4-10.2) mg/dL Albumin 2.7 L (3.9-5) g/dL Pituitary panel 10/28/20 Range/Units 09:14 Sodium 136 L (137-145) mmol/L Potassium 4.2 (3.6-5.0) mmol/L Chloride 99.5 (98-107) mmol/L Carbon Dioxide 29 (22-30) mmol/L BUN 8 L (9-20) mg/dL Creatinine 0.6 L (0.8-1.3) mg/dL Glucose 170 H (75-100) mg/dL Calcium 8.9 (8.4-10.2) mg/dL Adrenal panel 10/28/20 Range/Units 09:14 Sodium 136 L (137-145) mmol/L Potassium 4.2 (3.6-5.0) mmol/L Chloride 99.5 (98-107) mmol/L Carbon Dioxide 29 (22-30) mmol/L BUN 8 L (9-20) mg/dL Creatinine 0.6 L (0.8-1.3) mg/dL Glucose 170 H (75-100) mg/dL Calcium 8.9 (8.4-10.2) mg/dL Total Bilirubin 0.40 (0.1-1.2) mg/dL AST 17 (5-40) units/L ALT 35 (7-56) units/L Alkaline Phosphatase 308 H (35-129) units/L Total Protein 6.5 (6.3-8.2) g/dL Albumin 2.7 L (3.9-5) g/dL
--- NOTE | 2020-10-28 15:46 | Consultation ---
History of Present Illness - Reason for Consult Consult date: 10/28/20 - History of Present Illness 55-year-old man past medical history diabetes, medication noncompliance presented with 3 weeks of swelling of the right ankle and heel. He also notes drainage coming out of the right ankle. He complains of associated pain and redness. I&D was performed of the left foot abscess. Afebrile with significant Tachycardia, white count 21.1 on admission which is now resolved. Blood cultures no growth so far. Currently on Vanco and Unasyn. Imaging personally reviewed: Lower extremity MRI: Cellulitis with abscess, no osteomyelitis Review of Systems: Bold if positive, otherwise negative General: fevers, chills, rigors HEENT: visual disturbance, diplopia, eye pain Respiratory: cough, sputum, hemoptysis, shortness of breath Cardiovascular: chest pain, syncope Gastrointestinal: nausea, vomiting, diarrhea, abdominal pain Genitourinary: dysuria, hematuria, flank pain Musculoskeletal: neck pain, back pain, joint pain, edema Neurologic: headaches, seizures Hematologic: easy bruising or bleeding Endocrine: night sweats, acute weight loss Skin: rash, jaundice, redness Psychiatric: suicidal, homicidal ideation Past History Past Medical History: diabetes Past Surgical History: No surgical history Social history: no significant social history Family history: no significant family history Medications and Allergies Allergies Allergy/AdvReac Type Severity Reaction Status Date / Time No Known Allergies Allergy Unverified 10/25/20 17:13 Active Meds: Active Medications Acetaminophen (Acetaminophen 325 Mg Tab) 650 mg PO Q4H PRN PRN Reason: Pain MILD(1-3)/Fever >100.5/LONG Last Admin: 10/26/20 21:28 Dose: 650 mg Documented by: Diltiazem HCl (Diltiazem 60 Mg Tab) 60 mg PO Q8H [facility] Last Admin: 10/28/20 12:03 Dose: 60 mg Documented by: Famotidine (Famotidine 20 Mg Tab) 20 mg PO BID [facility] Last Admin: 10/28/20 09:28 Dose: 20 mg Documented by: Heparin Sodium (Porcine) (Heparin 5,000 Unit/1 Ml Vial) 5,000 unit SUB-Q Q12HR [facility] Last Admin: 10/28/20 09:28 Dose: 5,000 unit Documented by: Hydromorphone HCl (Hydromorphone 1 Mg/1 Ml Inj) 0.5 mg IV Q3H PRN PRN Reason: Pain , Severe (7-10) Last Admin: 10/27/20 18:14 Dose: 0.5 mg Documented by: Ampicillin Sodium/Sulbactam Sodium (Unasyn/Ns 3 Gm/100 Ml) 3 gm in 100 mls @ 100 mls/hr IV Q6HR [facility]; Protocol Last Admin: 10/28/20 12:01 Dose: 100 mls/hr Documented by: Sodium Chloride (Nacl 0.9% 1000 Ml) 1,000 mls @ 100 mls/hr IV DIRECT [facility] Last Admin: 10/27/20 06:06 Dose: 100 mls/hr Documented by: Vancomycin HCl 1,500 mg/ (Sodium Chloride) 530 mls @ 333.333 mls/hr IV Q12H [facility] Insulin Human Isoph/Insulin Regular (Insulin Nph/Regular 70/30 Inj) 16 unit SUB-Q BIDDIAB [facility] Last Admin: 10/28/20 09:28 Dose: 16 unit Documented by: Insulin Human Lispro (Insulin Lispro 100 Unit/Ml) 0 unit SUB-Q ACHS [facility]; Protocol Last Admin: 10/28/20 12:04 Dose: 3 unit Documented by: Ondansetron HCl (Ondansetron 4 Mg/2 Ml Inj) 4 mg IV Q8H PRN PRN Reason: Nausea And Vomiting Oxycodone/Acetaminophen (Oxycodone /Acetaminophen 5-325mg Tab) 1 tab PO Q6H PRN PRN Reason: Pain, Moderate (4-6) Last Admin: 10/28/20 12:03 Dose: 1 tab Documented by: Sodium Chloride (Sodium Chloride 0.9% 10 Ml Flush Syringe) 10 ml IV BID [facility] Last Admin: 10/28/20 09:29 Dose: 10 ml Documented by: Sodium Chloride (Sodium Chloride 0.9% 10 Ml Flush Syringe) 10 ml IV PRN PRN PRN Reason: LINE FLUSH Physical Examination - Physical Exam Narrative exam: Physical Exam: Constitutional: Alert, cooperative. No acute distress Head, Ears, Nose: Normocephalic, atraumatic. External ears, nose normal Eyes: Conjunctivae/corneas clear. No icterus. No ptosis. Neck: Supple, no meningeal signs Oral: dentition fair, no thrush Cardiovascular: S1, S2 normal. Respiratory: Good air entry, clear to auscultation bilaterally GI: Soft, non-tender; bowel sounds normal. No peritoneal signs. Musculoskeletal: Right ankle dressed Skin: No rash or abscess Hem/Lymphatic: No palpable cervical or supraclavicular nodes. No lymphangitis Psych: Mood ok. Affect normal Neurological: Awake, alert, oriented. No gross abnormality - Constitutional Vitals: Vital Signs Temp Pulse Resp BP Pulse Ox 98.5 F 156 H 18 110/73 95 10/28/20 15:00 10/28/20 15:00 10/28/20 15:00 10/28/20 15:00 10/28/20 15:00 Temperature -Last 24 Hours Temperature 98.5 F Temperature 98.9 F Temperature 98.3 F Temperature 98.6 F Temperature 97.9 F Temperature 97.8 F Temperature 122.0 F Temperature 97.9 F Results - Labs CBC & Chem 7: 10/28/20 09:14 10/28/20 09:14 Labs: Abnormal lab results 10/27/20 10/27/20 10/28/20 Range/Units 16:17 21:00 07:22 Lymph % (Auto) (13.4-35.0) % Lymph # (Auto) (1.2-5.4) K/mm3 Seg Neutrophils % (40.0-70.0) % Seg Neutrophils # (1.8-7.7) K/mm3 Sodium (137-145) mmol/L BUN (9-20) mg/dL Creatinine (0.8-1.3) mg/dL Glucose (75-100) mg/dL POC Glucose 219 H 215 H 133 H (70-105) mg/dL Alkaline Phosphatase (35-129) units/L Albumin (3.9-5) g/dL 10/28/20 10/28/20 10/28/20 Range/Units 09:14 09:14 11:13 Lymph % (Auto) 7.8 L (13.4-35.0) % Lymph # (Auto) 0.8 L (1.2-5.4) K/mm3 Seg Neutrophils % 83.1 H (40.0-70.0) % Seg Neutrophils # 9.0 H (1.8-7.7) K/mm3 Sodium 136 L (137-145) mmol/L BUN 8 L (9-20) mg/dL Creatinine 0.6 L (0.8-1.3) mg/dL Glucose 170 H (75-100) mg/dL POC Glucose 155 H (70-105) mg/dL Alkaline Phosphatase 308 H (35-129) units/L Albumin 2.7 L (3.9-5) g/dL Assessment and Plan Cultures: Blood culture no growth so far Wound culture pending A/P: 55-year-old man past medical history diabetes with poor compliance presented with right ankle tinnitus and abscess. #Acute sepsis: Present on admission with tachycardia and leukocytosis. Secondary to ankle infection #Right ankle cellulitis with abscess: Status post incision and drainage by general surgery, awaiting surgical cultures. Patient improving on current antibiotic regimen. MRI without evidence of osteomyelitis. #Diabetes: tight glycemic control for best outcomes. Recs: -Continue vancomycin goal trough 10-20, dosed per pharmacy. -Stop Unasyn -Start ceftriaxone 2 g every 24 hours -Follow-up surgical cultures to determine home oral antibiotic regimen. Thank you for the consult, we will continue to follow. Chayito Porter MD [facility] ([facility] O: [phone] F: [phone]
--- NOTE | 2020-10-28 15:59 | Consultation ---
History of Present Illness Consult date: 10/28/20 Requesting physician: ONUR HURTADO Consult reason: tachycardia History of present illness: Patient is a 55-year-old male with a significant history of noncompliant diabetes. He is previously unknown to our practice. He presents to [facility] with complaint of right ankle pain and swelling x3 weeks. MRI shows right ankle abscess with no signs of osteomyelitis patient is currently s/p surgical I&D. He is being treated for bacteremia/sepsis with vancomycin. Cardiology is consulted for tachycardic rate. Patient has been in atrial tach 150s x4 days with probable episodes of atrial flutter 2:1 conduction. Patient is currently receiving normal saline infusion for soft blood pressures. Patient is [place]-speaking only thus majority of information is obtained via chart. Patient denies any current chest pain, shortness of breath, weakness, dizziness, abdominal pain, N/V/D. Past History Past Medical History: diabetes, other (See HPI) Past Surgical History: No surgical history Social history: no significant social history Family history: no significant family history Medications and Allergies Allergies Allergy/AdvReac Type Severity Reaction Status Date / Time No Known Allergies Allergy Unverified 10/25/20 17:13 Active Meds: Active Medications Acetaminophen (Acetaminophen 325 Mg Tab) 650 mg PO Q4H PRN PRN Reason: Pain MILD(1-3)/Fever >100.5/LONG Last Admin: 10/26/20 21:28 Dose: 650 mg Documented by: Diltiazem HCl (Diltiazem 60 Mg Tab) 60 mg PO Q8H [facility] Last Admin: 10/28/20 12:03 Dose: 60 mg Documented by: Famotidine (Famotidine 20 Mg Tab) 20 mg PO BID [facility] Last Admin: 10/28/20 09:28 Dose: 20 mg Documented by: Heparin Sodium (Porcine) (Heparin 5,000 Unit/1 Ml Vial) 5,000 unit SUB-Q Q12HR [facility] Last Admin: 10/28/20 09:28 Dose: 5,000 unit Documented by: Hydromorphone HCl (Hydromorphone 1 Mg/1 Ml Inj) 0.5 mg IV Q3H PRN PRN Reason: Pain , Severe (7-10) Last Admin: 10/27/20 18:14 Dose: 0.5 mg Documented by: Ampicillin Sodium/Sulbactam Sodium (Unasyn/Ns 3 Gm/100 Ml) 3 gm in 100 mls @ 100 mls/hr IV Q6HR [facility]; Protocol Last Admin: 10/28/20 12:01 Dose: 100 mls/hr Documented by: Sodium Chloride (Nacl 0.9% 1000 Ml) 1,000 mls @ 100 mls/hr IV DIRECT [facility] Last Admin: 10/27/20 06:06 Dose: 100 mls/hr Documented by: Vancomycin HCl 1,500 mg/ (Sodium Chloride) 530 mls @ 333.333 mls/hr IV Q12H [facility] Insulin Human Isoph/Insulin Regular (Insulin Nph/Regular 70/30 Inj) 16 unit SUB-Q BIDDIAB [facility] Last Admin: 10/28/20 09:28 Dose: 16 unit Documented by: Insulin Human Lispro (Insulin Lispro 100 Unit/Ml) 0 unit SUB-Q ACHS [facility]; Protocol Last Admin: 10/28/20 12:04 Dose: 3 unit Documented by: Ondansetron HCl (Ondansetron 4 Mg/2 Ml Inj) 4 mg IV Q8H PRN PRN Reason: Nausea And Vomiting Oxycodone/Acetaminophen (Oxycodone /Acetaminophen 5-325mg Tab) 1 tab PO Q6H PRN PRN Reason: Pain, Moderate (4-6) Last Admin: 10/28/20 12:03 Dose: 1 tab Documented by: Sodium Chloride (Sodium Chloride 0.9% 10 Ml Flush Syringe) 10 ml IV BID [facility] Last Admin: 10/28/20 09:29 Dose: 10 ml Documented by: Sodium Chloride (Sodium Chloride 0.9% 10 Ml Flush Syringe) 10 ml IV PRN PRN PRN Reason: LINE FLUSH Review of Systems Constitutional: no weight loss, no weight gain, no fever, no chills, no sweats, no night sweats Ears, nose, mouth and throat: no ear pain, no ear discharge, no nose pain, no nasal congestion, no nasal discharge Cardiovascular: rapid/irregular heart beat, no chest pain, no orthopnea, no palpitations, no edema, no syncope, no lightheadedness, no shortness of breath, no dyspnea on exertion, no paroxysmal nocturnal dyspnea, no phlebitis, no high blood pressure Respiratory: no cough, no hemoptysis, no shortness of breath, no dyspnea on exertion Gastrointestinal: no abdominal pain, no nausea, no vomiting Genitourinary Male: no flank pain Musculoskeletal: no neck stiffness, no neck pain, no shooting arm pain, no arm numbness/tingling, no low back pain, no shooting leg pain Integumentary: no rash, no pruritis, no redness, no sores, no wounds Neurological: no head injury, no paralysis, no weakness, no parathesias, no numbness, no tingling, no seizures, no syncope Psychiatric: no anxiety Endocrine: no cold intolerance, no heat intolerance Hematologic/Lymphatic: no easy bruising, no easy bleeding Allergic/Immunologic: no urticaria Physical Examination Last Vital Signs Temp 98.5 F 10/28/20 15:00 Pulse 156 H 10/28/20 15:00 Resp 18 10/28/20 15:00 BP 110/73 10/28/20 15:00 Pulse Ox 95 10/28/20 15:00 General appearance: no acute distress HEENT: Positive: PERRL, Normocephaly, Mucus Membranes Moist Neck: Positive: neck supple, trachea midline Cardiac: Positive: Regular Rhythm, S1/S2 Lungs: Positive: Normal Exam, Normal Breath Sounds Neuro: Positive: Grossly Intact Abdomen: Positive: Unremarkable, Soft Skin: Positive: Wound. Negative: Rash Musculoskeletal: No Pain Extremities: Present: upper extr. pulses, lower extr. pulses. Absent: edema Results 10/28/20 09:14 10/28/20 09:14 Cardiac Enzymes 10/28/20 Range/Units 09:14 AST 17 (5-40) units/L CBC 10/28/20 Range/Units 09:14 WBC 10.8 (4.5-11.0) K/mm3 RBC 4.25 (3.65-5.03) M/mm3 Hgb 12.9 (11.8-15.2) gm/dl Hct 39.1 (35.5-45.6) % Plt Count 273 (140-440) K/mm3 Lymph # (Auto) 0.8 L (1.2-5.4) K/mm3 [place] # (Auto) 0.7 (0.0-0.8) K/mm3 Eos # (Auto) 0.2 (0.0-0.4) K/mm3 Baso # (Auto) 0.1 (0.0-0.1) K/mm3 Comprehensive Metabolic Panel 10/28/20 Range/Units 09:14 Sodium 136 L (137-145) mmol/L Potassium 4.2 (3.6-5.0) mmol/L Chloride 99.5 (98-107) mmol/L Carbon Dioxide 29 (22-30) mmol/L BUN 8 L (9-20) mg/dL Creatinine 0.6 L (0.8-1.3) mg/dL Glucose 170 H (75-100) mg/dL Calcium 8.9 (8.4-10.2) mg/dL AST 17 (5-40) units/L ALT 35 (7-56) units/L Alkaline Phosphatase 308 H (35-129) units/L Total Protein 6.5 (6.3-8.2) g/dL Albumin 2.7 L (3.9-5) g/dL - Imaging and Cardiology Echo: pending EKG: report reviewed, image reviewed EKG interpretations - Telemetry EKG Rhythm: Sinus Tachycardia - EKG Sinus rhythms and dysrhythmias: sinus tachycardia Assessment and Plan SVT in setting of sepsis * Telemetry reviewed: SVT rate 150s with episodes of a flutter 2:1 conduction ra te. Continue to monitor on telemetry * Echocardiogram is pending read * Optimize rate control: Discontinue Cardizem 60 mg p.o., initiate Cardizem drip titrate to heart rate less than 100. Due to prevalence of soft blood pressures this may require addition of vasopressors to maintain adequate blood pressure. May be necessary to transfer patient to ICU/CCU for vasopressor support until rate control is achieved. Sepsis secondary to right lower extremity cellulitis s/p surgical incision and drainage * Currently on vancomycin regimen and receiving fluid boluses to maintain hemodynamic stability * Infectious diseases currently following Uncontrolled diabetes mellitus * Management per primary team DVT prophylaxis * Management per primary team Will initiate Cardizem drip to achieve rate control. Will follow This patient was seen in conjunction with Dr Cordova who agrees with this assessment and plan of care - Patient Problems (1) Sepsis Current Visit: Yes Status: Acute (2) SVT (supraventricular tachycardia) Current Visit: Yes Status: Acute (3) Abscess of right foot Current Visit: Yes Status: Acute (4) Cellulitis of right foot Current Visit: Yes Status: Acute (5) DVT prophylaxis Current Visit: Yes Status: Acute (6) T2DM (type 2 diabetes mellitus) Current Visit: Yes Status: Chronic Qualifiers: Diabetes mellitus custodial insulin use: unspecified long winder tender insulin use status
[2020-10-28] MEDS ORDERED: dilTIAZem/D5W 100 MG/100 ML BAG IV SCH (17:00)
--- NOTE | 2020-10-28 17:09 | Progress Note ---
Assessment and Plan Assessment and plan: 55-year-old male with history of diabetes noncompliance has been having 3 weeks swelling of the right ankle and the heel with small amount of drainage on the medial part of the right ankle. Also redness on the right ankle and painful. Patient has not been taking any medications for his diabetes. Poor historian and language barrier present. No fever or chills. Pain is about 6 on a scale of 1-10. 10/27/2020: Patient has no fever and leukocytosis progressively improving on antibiotics. However he has significant sinus tachycardia about 150. EKG confirms sinus tachycardia without acute ST/T changes. Troponin normal. BP okay. He is not hypoxic. 97% on room air. Lactic acid normal. Not acidotic. CBC and CMP unremarkable. Is mentating well. Does not appear toxic. Not in significant pain currently. Patient did undergo I&D and abscess drainage yesterday. There is serosanguineous drainage from the abscess opening. There is still significant swelling and erythema around it. Has good glycemic control currently. MRI showed abscess but no osteomyelitis. Patient denies chest pains, palpitations or dyspnea. Sinus tach and appears to be physiological to infection/abscess. May need further debridement/drainage. Blood cultures negative to date. Surgical cultures were likely sent but not updated yet. Will obtain treated for, lower extremity ultrasound for DVT and give 1 L normal saline bolus. Is currently receiving normal saline 100 mL/h maintenance dose. Discussed with the nursing staff. 10/28/20 Patient is feeling better and really does not have much complaints. Swelling, erythema and drainage from the abscess at right ankle all improving. Pain is better. Afebrile with resolving leukocytosis on antibiotics. Blood cultures negative to date. No report on the surgical consults yet. ID consulted, Unasyn changed to Rocephin.Continue Vanco. Acceptable glycemic control. Persistently tachycardic at 150, possible atrial tach vs SVT/AF, on po caedizem. Echo ok. Cardiology consulted,transferring to [facility] for cardizem drip. Denies chest, palp,dyspnea. (1) sepsis with cellulitis of foot, rule out septic arthritis of ankle Current Visit: Yes Status: Acute Plan to address problem: Right ankle swollen with drainage on the medial aspect Likely underlying small abscess Surgical consult requested and I/D to perform this afternoon. X-ray of the foot and ankle not helpful Low-grade fever, leukocytosis improving, lactic acid normal at the time of admission, blood cultures pending. Patient does not look toxic, mentating well with stable vital signs. However he has a sinus tachycardia reactive to sepsis/abscess, expiratory improved with I/D. IV Unasyn and vancomycin initiated Cultures from I/D to be sent to lab. 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 Patient initiated on insulin coverage for now Diabetes education Patient to be initiated on insulin 70/30 twice a day with high-dose sliding scale coverage (3) SVT VT prophylaxis Current Visit: Yes Status: Acute Plan to address problem: On heparin and GI prophylaxis d/w pt and RN History Interval history: Patient is feeling better and really does not have much complaints. Swelling, erythema and drainage from the abscess at right ankle all improving. Pain is better. Afebrile with resolving leukocytosis on antibiotics. Blood cultures negative to date. No report on the surgical consults yet. Acceptable glycemic control. Persistently tachycardic at 150, possible atrial tach vs SVT/AF, on po caedizem. Echo ok. Cardiology consulted,transferring to [facility] for cardizem drip. Denies chest, palp,dyspnea. Hospitalist Physical - Constitutional Vitals: Temp Pulse Resp BP Pulse Ox 98.5 F 156 H 18 110/73 95 10/28/20 15:00 10/28/20 15:00 10/28/20 15:00 10/28/20 15:00 10/28/20 15:00 General appearance: Present: no acute distress - EENT Eyes: Present: PERRL, EOM intact ENT: clear oral mucosa - Neck Neck: Present: supple. Absent: masses or JVD - Respiratory Respiratory effort: normal Respiratory: bilateral: CTA - Cardiovascular Rhythm: other (tachy) Heart Sounds: Absent: systolic murmur - Extremities Extremities: No edema Extremity abnormal: other (No significant drainage from abscess opening,ribbon gauze in place, swelling and erythema better) - Abdominal General gastrointestinal: soft, non-tender - Psychiatric Psychiatric: appropriate mood/affect - Neurologic Neurologic: no focal deficits, other (a/o) HEART Score - HEART Score Troponin: Troponin T < 0.010 ng/mL (0.00-0.029) 10/27/20 10:30 Results - Labs CBC & Chem 7: 10/28/20 09:14 10/28/20 09:14 Labs: Laboratory Last Values WBC 10.8 K/mm3 (4.5-11.0) 10/28/20 09:14 RBC 4.25 M/mm3 (3.65-5.03) 10/28/20 09:14 Hgb 12.9 gm/dl (11.8-15.2) 10/28/20 09:14 Hct 39.1 % (35.5-45.6) 10/28/20 09:14 MCV 92 fl (84-94) 10/28/20 09:14 MCH 30 pg (28-32) 10/28/20 09:14 MCHC 33 % (32-34) 10/28/20 09:14 RDW 13.5 % (13.2-15.2) 10/28/20 09:14 Plt Count 273 K/mm3 (140-440) 10/28/20 09:14 Lymph % (Auto) 7.8 % (13.4-35.0) L 10/28/20 09:14 Mineral % (Auto) 6.7 % (0.0-7.3) 10/28/20 09:14 Eos % (Auto) 1.5 % (0.0-4.3) 10/28/20 09:14 Baso % (Auto) 0.9 % (0.0-1.8) 10/28/20 09:14 Lymph # (Auto) 0.8 K/mm3 (1.2-5.4) L 10/28/20 09:14 Mineral # (Auto) 0.7 K/mm3 (0.0-0.8) 10/28/20 09:14 Eos # (Auto) 0.2 K/mm3 (0.0-0.4) 10/28/20 09:14 Baso # (Auto) 0.1 K/mm3 (0.0-0.1) 10/28/20 09:14 Add Manual Diff Complete 10/25/20 16:21 Total Counted 100 10/25/20 16:21 Seg Neutrophils % 83.1 % (40.0-70.0) H 10/28/20 09:14 Seg Neuts % (Manual) 92.0 % (40.0-70.0) H 10/25/20 16:21 Lymphocytes % (Manual) 4.0 % (13.4-35.0) L 10/25/20 16:21 Monocytes % (Manual) 4.0 % (0.0-7.3) 10/25/20 16:21 Nucleated RBC % Not Reportable 10/25/20 16:21 Seg Neutrophils # 9.0 K/mm3 (1.8-7.7) H 10/28/20 09:14 Seg Neutrophils # Man 19.4 K/mm3 (1.8-7.7) H 10/25/20 16:21 Band Neutrophils # 0.0 K/mm3 10/25/20 16:21 Lymphocytes # (Manual) 0.8 K/mm3 (1.2-5.4) L 10/25/20 16:21 Abs React Lymphs (Man) 0.0 K/mm3 10/25/20 16:21 Monocytes # (Manual) 0.8 K/mm3 (0.0-0.8) 10/25/20 16:21 Eosinophils # (Manual) 0.0 K/mm3 (0.0-0.4) 10/25/20 16:21 Basophils # (Manual) 0.0 K/mm3 (0.0-0.1) 10/25/20 16:21 Metamyelocytes # 0.0 K/mm3 10/25/20 16:21 Myelocytes # 0.0 K/mm3 10/25/20 16:21 Promyelocytes # 0.0 K/mm3 10/25/20 16:21 Blast Cells # 0.0 K/mm3 10/25/20 16:21 WBC Morphology Not Reportable 10/25/20 16:21 Hypersegmented Neuts Not Reportable 10/25/20 16:21 Hyposegmented Neuts Not Reportable 10/25/20 16:21 Hypogranular Neuts Not Reportable 10/25/20 16:21 Smudge Cells Not Reportable 10/25/20 16:21 Toxic Granulation Not Reportable 10/25/20 16:21 Toxic Vacuolation Not Reportable 10/25/20 16:21 Dohle Bodies Not Reportable 10/25/20 16:21 Pelger-Huet Anomaly Not Reportable 10/25/20 16:21 Love Rods Not Reportable 10/25/20 16:21 Platelet Estimate Not Reportable 10/25/20 16:21 Clumped Platelets Not Reportable 10/25/20 16:21 Plt Clumps, EDTA Not Reportable 10/25/20 16:21 Large Platelets Not Reportable 10/25/20 16:21 Giant Platelets Not Reportable 10/25/20 16:21 Platelet Satelliting Not Reportable 10/25/20 16:21 Plt Morphology Comment Not Reportable 10/25/20 16:21 RBC Morphology Normal 10/25/20 16:21 Dimorphic RBCs Not Reportable 10/25/20 16:21 Polychromasia Not Reportable 10/25/20 16:21 Hypochromasia Not Reportable 10/25/20 16:21 Poikilocytosis Not Reportable 10/25/20 16:21 Anisocytosis Not Reportable 10/25/20 16:21 Microcytosis Not Reportable 10/25/20 16:21 Macrocytosis Not Reportable 10/25/20 16:21 Spherocytes Not Reportable 10/25/20 16:21 Pappenheimer Bodies Not Reportable 10/25/20 16:21 Sickle Cells Not Reportable 10/25/20 16:21 Target Cells Not Reportable 10/25/20 16:21 Tear Drop Cells Not Reportable 10/25/20 16:21 Ovalocytes Not Reportable 10/25/20 16:21 Helmet Cells Not Reportable 10/25/20 16:21 [place] Bodies Not Reportable 10/25/20 16:21 [place] Rings Not Reportable 10/25/20 16:21 [place] Cells Not Reportable 10/25/20 16:21 Bite Cells Not Reportable 10/25/20 16:21 Crenated Cell Not Reportable 10/25/20 16:21 Elliptocytes Not Reportable 10/25/20 16:21 Acanthocytes (Spur) Not Reportable 10/25/20 16:21 Rouleaux Not Reportable 10/25/20 16:21 Hemoglobin C Crystals Not Reportable 10/25/20 16:21 Schistocytes Not Reportable 10/25/20 16:21 Malaria parasites Not Reportable 10/25/20 16:21 [place] Bodies Not Reportable 10/25/20 16:21 Hem Pathologist Commnt No 10/25/20 16:21 Sodium 136 mmol/L (137-145) L 10/28/20 09:14 Potassium 4.2 mmol/L (3.6-5.0) 10/28/20 09:14 Chloride 99.5 mmol/L (98-107) 10/28/20 09:14 Carbon Dioxide 29 mmol/L (22-30) 10/28/20 09:14 Anion Gap 12 mmol/L 10/28/20 09:14 BUN 8 mg/dL (9-20) L 10/28/20 09:14 Creatinine 0.6 mg/dL (0.8-1.3) L 10/28/20 09:14 Estimated GFR > 60 ml/min 10/28/20 09:14 BUN/Creatinine Ratio 13 % 10/28/20 09:14 Glucose 170 mg/dL (75-100) H 10/28/20 09:14 POC Glucose 134 mg/dL (70-105) H 10/28/20 16:20 Hemoglobin A1c 12.5 % (4-6) H 10/25/20 16:21 Lactic Acid 0.80 mmol/L (0.7-2.0) 10/27/20 10:30 Calcium 8.9 mg/dL (8.4-10.2) 10/28/20 09:14 Total Bilirubin 0.40 mg/dL (0.1-1.2) 10/28/20 09:14 AST 17 units/L (5-40) 10/28/20 09:14 ALT 35 units/L (7-56) 10/28/20 09:14 Alkaline Phosphatase 308 units/L (35-129) H 10/28/20 09:14 Troponin T < 0.010 ng/mL (0.00-0.029) 10/27/20 10:30 C-Reactive Protein 16.70 mg/dL (0.00-1.30) H 10/25/20 16:21 NT-Pro-B Natriuret Pep 507.9 pg/mL (0-900) 10/27/20 10:30 Total Protein 6.5 g/dL (6.3-8.2) 10/28/20 09:14 Albumin 2.7 g/dL (3.9-5) L 10/28/20 09:14 Albumin/Globulin Ratio 0.7 % 10/28/20 09:14 Free T4 1.29 ng/dL (0.76-1.46) 10/27/20 18:06 Vancomycin Trough 9.5 ug/mL (5.0-20.0) 10/27/20 18:04 Microbiology: Microbiology 10/25/20 16:21 Peripheral/Venous Blood Culture - Preliminary NO GROWTH AFTER 48 HOURS 10/25/20 16:26 Peripheral/Venous Blood Culture - Preliminary NO GROWTH AFTER 48 HOURS Elizabeth/IV: Voiding Method Urinal Active Medications - Current Medications Current Medications: Generic Name Dose Route Start Last Admin Trade Name Freq PRN Reason Stop Dose Admin Acetaminophen 650 mg 10/25/20 22:49 10/26/20 21:28 Acetaminophen 325 Mg Tab PO 650 mg Q4H PRN Administration Pain MILD(1-3)/Fever >100.5/LONG Famotidine 20 mg 10/26/20 22:00 10/28/20 09:28 Famotidine 20 Mg Tab PO 20 mg BID KAMERON Administration Heparin Sodium (Porcine) 5,000 unit 10/26/20 10:00 10/28/20 09:28 Heparin 5,000 Unit/1 Ml Vial SUB-Q 5,000 unit Q12HR KAMERON Administration Hydromorphone HCl 0.5 mg 10/25/20 22:49 10/27/20 18:14 Hydromorphone 1 Mg/1 Ml Inj IV 0.5 mg Q3H PRN Administration Pain , Severe (7-10) Ampicillin Sodium/Sulbactam Sodium 3 gm in 100 mls @ 100 mls/hr 10/26/20 00:00 10/28/20 12:01 Unasyn/Ns 3 Gm/100 Ml IV 100 mls/hr Q6HR KAMERON Administration Protocol Sodium Chloride 1,000 mls @ 100 mls/hr 10/26/20 16:30 10/27/20 06:06 Nacl 0.9% 1000 Ml IV 100 mls/hr DIRECT KAMERON Administration Vancomycin HCl 1,500 mg/ 530 mls @ 333.333 mls/hr 10/28/20 18:00 Sodium Chloride IV Q12H KAMERON Diltiazem HCl 100 mg in 100 mls @ 5 mls/hr 10/28/20 17:00 Cardizem/D5w 100mg/100ml IV TITR KAMERON Protocol 5 MG/HR Insulin Human Isoph/Insulin Regular 16 unit 10/26/20 08:00 10/28/20 09:28 Insulin Nph/Regular 70/30 Inj SUB-Q 16 unit BIDDIAB KAMERON Administration Insulin Human Lispro 0 unit 10/26/20 07:30 10/28/20 17:02 Insulin Lispro 100 Unit/Ml SUB-Q Not Given ACHS KAMERON Protocol Ondansetron HCl 4 mg 10/25/20 22:49 Ondansetron 4 Mg/2 Ml Inj IV Q8H PRN Nausea And Vomiting Oxycodone/Acetaminophen 1 tab 10/25/20 22:49 10/28/20 12:03 Oxycodone /Acetaminophen 5-325mg Tab PO 1 tab Q6H PRN Administration Pain, Moderate (4-6) Sodium Chloride 10 ml 10/26/20 08:00 10/28/20 09:29 Sodium Chloride 0.9% 10 Ml Flush Syringe IV 10 ml BID KAMERON Administration Sodium Chloride 10 ml 10/25/20 22:49 Sodium Chloride 0.9% 10 Ml Flush Syringe IV PRN PRN LINE FLUSH Nutrition/Malnutrition Assess - Dietary Evaluation Nutrition/Malnutrition Findings: Nutrition Notes Start: 10/26/20 12:56 Freq: Status: Active Protocol: Document 10/26/20 12:56 (Rec: 10/26/20 12:57 [email or web address]) Nutrition Notes Need for Assessment generated from: MD Order,Education Initial or Follow up Brief Note Current Diagnosis Diabetes Other Pertinent Diagnosis r ankle cellulitis Current Diet consistent CHO Subjective/Other Information MD consult for diet education and ONS. Pt denied diet education and accepted handout . Pt reports eating 75-100% of meals and no recent wt loss. Nutrition Intervention Revisit per MD consult or patient Sign Off request:
[2020-10-28] MEDS ORDERED: VANCOMYCIN 1,500 MG in SODIUM CHLORIDE 0.9% 500 ML 500 ML IV SCH (18:00)
[2020-10-29] MEDS: cefTRIAXone/NS 2 GM/100 ML 2 GM/100 ML BAG IV SCH (02:36)
[2020-10-29] MEDS ORDERED: dilTIAZem 25 MG/5 ML INJ IV PRN (02:51)
[2020-10-29] MEDS ORDERED: dilTIAZem/D5W 100 MG/100 ML BAG IV SCH (05:00)
[2020-10-29] MEDS: AMPICILLIN/SULBACTA 3GM/100ML 3 GM/100 ML BAG IV SCH (05:05)
[2020-10-29] MEDS ORDERED: VANCOMYCIN/NS 1 GM/250 ML 1 GM/250 ML BAG IV SCH (07:00)
[2020-10-29] MEDS ORDERED: VANCOMYCIN PHARMACY TO DOSE IV SCH (10:00)
[2020-10-29 10:12] LABS: Basophils # (Auto) 0.1 K/mm3 (0.0-0.1); Basophils % (Auto) 1.2 % (0.0-1.8); Eosinophils # (Auto) 0.1 K/mm3 (0.0-0.4); Eosinophils % (Auto) 1.2 % (0.0-4.3); Hematocrit 35.2 % (35.5-45.6); Hemoglobin 11.9 gm/dl (11.8-15.2); Lymphocytes # (Auto) 0.7 K/mm3 (1.2-5.4); Lymphocytes % (Auto) 7.7 % (13.4-35.0); Mean Corpuscular HGB Conc 34 % (32-34); Mean Corpuscular Volume 92 fl (84-94); Monocytes # (Auto) 0.5 K/mm3 (0.0-0.8); Monocytes % (Auto) 6.1 % (0.0-7.3); Platelet Count 285 K/mm3 (140-440); Red Blood Count 3.83 M/mm3 (3.65-5.03); Red Cell Distribution Width 13.3 % (13.2-15.2)
[2020-10-29 10:28] LABS: Alanine Aminotransferase 67 units/L (7-56); Blood Urea Nitrogen 9 mg/dL (9-20); Calcium 8.7 mg/dL (8.4-10.2); Hemolysis Index 5
[2020-10-29 10:36] LABS: BUN/Creatinine Ratio 15
[2020-10-29] MEDS ORDERED: ACETAMINOPHEN 325 MG TAB PO PRN (10:46)
[2020-10-29] MEDS: oxyCODONE /ACETAMINOPHEN 5-325MG TAB PO PRN ×2 (10:46→17:53)
[2020-10-29] MEDS: VANCOMYCIN 1,500 MG in SODIUM CHLORIDE 0.9% 500 ML 500 ML IV SCH ×2 (10:48→23:27)
[2020-10-29] MEDS ORDERED: DEXTROSE 50% IN WATER (25GM) 50 ML SYRINGE IV PRN (10:49)
[2020-10-29] MEDS ORDERED: AMIODARONE 150 MG in DEXTROSE 5% IN WATER 97 ML IV ONE (12:15)
[2020-10-29] MEDS: FAMOTIDINE 20 MG TAB PO SCH ×2 (12:15→21:38)
[2020-10-29] MEDS: INSULIN REGULAR, HUMAN 100 UNITS/1 ML SUB-Q SCH ×3 (12:15→21:38)
[2020-10-29] MEDS: AMIODARONE 900 MG in DEXTROSE 5% IN WATER 482 ML IV SCH (12:44)
--- NOTE | 2020-10-29 13:50 | Progress Note ---
Assessment and Plan Cultures: Blood culture no growth so far Wound culture pending A/P: 55-year-old man past medical history diabetes with poor compliance pre sented with right ankle tinnitus and abscess. #Acute sepsis: Present on admission with tachycardia and leukocytosis. Secondary to ankle infection #Right ankle cellulitis with abscess: Status post incision and drainage by general surgery, awaiting surgical cultures. Patient improving on current a ntibiotic regimen. MRI without evidence of osteomyelitis. #Diabetes: tight glycemic control for best outcomes. Recs: -Continue vancomycin goal trough 10-20, dosed per pharmacy. -Continue ceftriaxone 2 g every 24 hours -On discharge presented with Bactrim DS every 12 hours and Augmentin 875/125 mg every 12 hours to complete 7 more days. Thank you for the consult, we will continue to follow. Chayito Porter MD [facility] O: [phone] F: [phone] Subjective Date of service: 10/29/20 Interval history: Afebrile, remains tachycardic. Normal white count. Cultures all negative. Objective - Exam Narrative Exam: Physical Exam: Constitutional: Alert, cooperative. No acute distress Head, Ears, Nose: Normocephalic, atraumatic. Eyes: Conjunctivae/corneas clear. No icterus. No ptosis. Neck: Supple, no meningeal signs Oral: dentition fair, no thrush Cardiovascular: S1, S2 normal. Respiratory: Good air entry, clear to auscultation bilaterally GI: Soft, non-tender; bowel sounds normal. No peritoneal signs. Musculoskeletal: Right ankle dressed Skin: No rash or abscess Hem/Lymphatic: No palpable cervical or supraclavicular nodes. No lymphangitis Psych: Mood ok. Affect normal Neurological: Awake, alert, oriented. No gross abnormality - Constitutional Vitals: Vital Signs Temp Pulse Resp BP Pulse Ox 98.7 F 141 H 15 112/77 98 10/29/20 12:00 10/29/20 13:40 10/29/20 13:40 10/29/20 13:40 10/29/20 13:40 Temperature -Last 24 Hours Temperature 98.7 F Temperature 98.7 F Temperature 97.5 F Temperature 97.4 F Temperature 98.6 F Temperature 98.5 F Temperature 98.5 F - Labs CBC & Chem 7: 10/29/20 09:57 10/29/20 09:57 Labs: Abnormal lab results 10/28/20 10/28/20 10/29/20 Range/Units 16:20 20:18 01:00 Hct (35.5-45.6) % Lymph % (Auto) (13.4-35.0) % Lymph # (Auto) (1.2-5.4) K/mm3 Seg Neutrophils % (40.0-70.0) % Creatinine (0.8-1.3) mg/dL Glucose (75-100) mg/dL POC Glucose 134 H 198 H 66 L (70-105) mg/dL ALT (7-56) units/L Alkaline Phosphatase (35-129) units/L C-Reactive Protein (0.00-1.30) mg/dL Total Protein (6.3-8.2) g/dL Albumin (3.9-5) g/dL 10/29/20 10/29/20 10/29/20 Range/Units 07:44 09:57 09:57 Hct 35.2 L (35.5-45.6) % Lymph % (Auto) 7.7 L (13.4-35.0) % Lymph # (Auto) 0.7 L (1.2-5.4) K/mm3 Seg Neutrophils % 83.8 H (40.0-70.0) % Creatinine 0.6 L (0.8-1.3) mg/dL Glucose 271 H (75-100) mg/dL POC Glucose 285 H (70-105) mg/dL ALT 67 H (7-56) units/L Alkaline Phosphatase 381 H (35-129) units/L C-Reactive Protein 7.30 H (0.00-1.30) mg/dL Total Protein 6.0 L (6.3-8.2) g/dL Albumin 3.0 L (3.9-5) g/dL 10/29/20 Range/Units 12:00 Hct (35.5-45.6) % Lymph % (Auto) (13.4-35.0) % Lymph # (Auto) (1.2-5.4) K/mm3 Seg Neutrophils % (40.0-70.0) % Creatinine (0.8-1.3) mg/dL Glucose (75-100) mg/dL POC Glucose 275 H (70-105) mg/dL ALT (7-56) units/L Alkaline Phosphatase (35-129) units/L C-Reactive Protein (0.00-1.30) mg/dL Total Protein (6.3-8.2) g/dL Albumin (3.9-5) g/dL
--- NOTE | 2020-10-29 14:25 | Progress Note ---
Assessment and Plan SVT in setting of sepsis * Telemetry reviewed: SVT rate 150s with episodes of a flutter 2:1 conduction rate. Continue to monitor on telemetry * Echo 10/28/2020: EF 50 to 55%. Right ventricle normal size normal right ventricular function mild tricuspid regurgitation * Optimize rate control: Discontinue Cardizem drip. Initiated amiodoraone loading bolus of 150mg IV and amiodarone drip titrate to heart rate less than 100. Sepsis secondary to right lower extremity cellulitis s/p surgical incision and drainage * Currently on vancomycin regimen and receiving fluid boluses to maintain hemodynamic stability * Infectious diseases currently following Uncontrolled diabetes mellitus * Management per primary team DVT prophylaxis * Management per primary team Signed by Sylvester Razo NP Will initiate amiodorone drip to achieve rate control. 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 Subjective Date of service: 10/29/20 Principal diagnosis: Sinus tachycardia Interval history: Patient resting in bed with no complaints sinus tach 150s Objective Last Vital Signs Temp 98.7 F 10/29/20 12:00 Pulse 141 H 10/29/20 13:40 Resp 15 10/29/20 13:40 BP 112/77 10/29/20 13:40 Pulse Ox 98 10/29/20 13:40 - Physical Examination General: No Apparent Distress HEENT: Positive: PERRL, Normocephaly, Mucus Membranes Moist Neck: Positive: neck supple, trachea midline Cardiac: Positive: Regular Rhythm, Tachycardia Lungs: Positive: Normal Breath Sounds Neuro: Positive: Grossly Intact Abdomen: Positive: Unremarkable, Soft Skin: Positive: Wound. Negative: Rash Musculoskeletal: No Pain Extremities: Present: upper extr. pulses, lower extr. pulses. Absent: edema - Labs and Meds Cardiac Enzymes 10/29/20 Range/Units 09:57 AST 36 (5-40) units/L CBC 10/29/20 Range/Units 09:57 WBC 8.6 (4.5-11.0) K/mm3 RBC 3.83 (3.65-5.03) M/mm3 Hgb 11.9 (11.8-15.2) gm/dl Hct 35.2 L (35.5-45.6) % Plt Count 285 (140-440) K/mm3 Lymph # (Auto) 0.7 L (1.2-5.4) K/mm3 [place] # (Auto) 0.5 (0.0-0.8) K/mm3 Eos # (Auto) 0.1 (0.0-0.4) K/mm3 Baso # (Auto) 0.1 (0.0-0.1) K/mm3 Comprehensive Metabolic Panel 10/29/20 Range/Units 09:57 Sodium 137 (137-145) mmol/L Potassium 4.4 (3.6-5.0) mmol/L Chloride 101.4 (98-107) mmol/L Carbon Dioxide 29 (22-30) mmol/L BUN 9 (9-20) mg/dL Creatinine 0.6 L (0.8-1.3) mg/dL Glucose 271 H (75-100) mg/dL Calcium 8.7 (8.4-10.2) mg/dL AST 36 (5-40) units/L ALT 67 H (7-56) units/L Alkaline Phosphatase 381 H (35-129) units/L Total Protein 6.0 L (6.3-8.2) g/dL Albumin 3.0 L (3.9-5) g/dL - Imaging and Cardiology EKG: report reviewed, image reviewed Echo: pending - Telemetry EKG Rhythm: Sinus Tachycardia - EKG Sinus rhythms and dysrhythmias: sinus tachycardia
--- NOTE | 2020-10-29 17:45 | Progress Note ---
Assessment and Plan Assessment and plan: 55-year-old male with history of diabetes noncompliance has been having 3 weeks swelling of the right ankle and the heel with small amount of drainage on the medial part of the right ankle. Also redness on the right ankle and painful. Patient has not been taking any medications for his diabetes. Poor historian and language barrier present. No fever or chills. Pain is about 6 on a scale of 1-10. 10/27/2020: Patient has no fever and leukocytosis progressively improving on antibiotics. However he has significant sinus tachycardia about 150. EKG confirms sinus tachycardia without acute ST/T changes. Troponin normal. BP okay. He is not hypoxic. 97% on room air. Lactic acid normal. Not acidotic. CBC and CMP unremarkable. Is mentating well. Does not appear toxic. Not in significant pain currently. Patient did undergo I&D and abscess drainage yesterday. There is serosanguineous drainage from the abscess opening. There is still significant swelling and erythema around it. Has good glycemic control currently. MRI showed abscess but no osteomyelitis. Patient denies chest pains, palpitations or dyspnea. Sinus tach and appears to be physiological to infection/abscess. May need further debridement/drainage. Blood cultures negative to date. Surgical cultures were likely sent but not updated yet. Will obtain treated for, lower extremity ultrasound for DVT and give 1 L normal saline bolus. Is currently receiving normal saline 100 mL/h maintenance dose. Discussed with the nursing staff. 10/28/20 Patient is feeling better and really does not have much complaints. Swelling, erythema and drainage from the abscess at right ankle all improving. Pain is better. Afebrile with resolving leukocytosis on antibiotics. Blood cultures negative to date. No report on the surgical consults yet. ID consulted, Unasyn changed to Rocephin.Continue Vanco. Acceptable glycemic control. Persistently tachycardic at 150, possible atrial tach vs SVT/AF, on po caedizem. Echo ok. Cardiology consulted,transferring to [facility] for cardizem drip. Denies chest, palp,dyspnea. 10/29/2020: Patient remains afebrile. Wound opening below right medial malleolus is not draining much. Surrounding swelling and erythema improving. Leukocytosis resolved. Hemodynamically stable. Persistent atrial tachycardia with possible intermittent atrial flutter unresponsive to Cardizem drip. Cardiology is planning to start amiodarone infusion today. (1) sepsis with cellulitis of foot, rule out septic arthritis of ankle Current Visit: Yes Status: Acute Plan to address problem: Right ankle swollen with drainage on the medial aspect Likely underlying small abscess Surgical consult requested and I/D to perform this afternoon. X-ray of the foot and ankle not helpful Low-grade fever, leukocytosis improving, lactic acid normal at the time of admission, blood cultures pending. Patient does not look toxic, mentating well with stable vital signs. However he has a sinus tachycardia reactive to sepsis/abscess, expiratory improved with I/D. IV Unasyn and vancomycin initiated Cultures from I/D to be sent to lab. (2) T2DM (type 2 diabetes mellitus), A1c 12.5 Current Visit: Yes Status: Chronic Qualifiers: Diabetes mellitus long-term insulin use: unspecified long-term insulin use status Plan to address problem: Apparently patient not taking any medication. Patient initiated on insulin coverage for now Diabetes education Patient to be initiated on insulin 70/30 twice a day with high-dose sliding scale coverage (3) SVT/atrial tachycardia with possible intermittent atrial flutter VT prophylaxis Current Visit: Yes Status: Acute Plan to address problem: On heparin and GI prophylaxis d/w pt and RN History Interval history: Patient is feeling better and really does not have much complaints. Swelling, erythema and drainage from the abscess at right ankle all improving. Pain is better. Afebrile with resolving leukocytosis on antibiotics. Blood cultures negative to date. No report on the surgical consults yet. Acceptable glycemic control. Persistently tachycardic at 150, possible atrial tach vs SVT/AF, no response to po caedizem. Echo ok. Cardiology consulted,transferred to to [facility] on 10/28 for cardizem drip. However, tachycardia is unresponsive to Cardizem drip also. BP okay today. Cardiology is planning to start amiodarone infusion today. Denies chest, palp,dyspnea. Hospitalist Physical - Constitutional Vitals: Temp Pulse Resp BP Pulse Ox 98.7 F 141 H 15 112/77 98 10/29/20 12:00 10/29/20 13:40 10/29/20 13:40 10/29/20 13:40 10/29/20 13:40 General appearance: Present: no acute distress - EENT Eyes: Present: PERRL. Absent: scleral icterus ENT: clear oral mucosa - Neck Neck: Present: supple, masses or JVD - Respiratory Respiratory effort: normal Respiratory: bilateral: CTA - Cardiovascular Rhythm: other (Tachycardia) Heart Sounds: Absent: systolic murmur - Extremities Extremities: No edema Extremity abnormal: other (Open wound below right medial malleolus without significant drainage, packed with ribbon gauze, surrounding swelling and erythema better. No calf swelling or tenderness. Dorsalis pedis pulses palpable but diminished. Diminished movements at right ankle and normal range of movements in the toes.) - Abdominal General gastrointestinal: soft, non-tender, non-distended, normal bowel sounds - Integumentary Integumentary: Absent: rash - Psychiatric Psychiatric: appropriate mood/affect - Neurologic Neurologic: no focal deficits HEART Score - HEART Score Troponin: Troponin T < 0.010 ng/mL (0.00-0.029) 10/27/20 10:30 Results - Labs CBC & Chem 7: 10/29/20 09:57 10/29/20 09:57 Labs: Laboratory Last Values WBC 8.6 K/mm3 (4.5-11.0) 10/29/20 09:57 RBC 3.83 M/mm3 (3.65-5.03) 10/29/20 09:57 Hgb 11.9 gm/dl (11.8-15.2) 10/29/20 09:57 Hct 35.2 % (35.5-45.6) L 10/29/20 09:57 MCV 92 fl (84-94) 10/29/20 09:57 MCH 31 pg (28-32) 10/29/20 09:57 MCHC 34 % (32-34) 10/29/20 09:57 RDW 13.3 % (13.2-15.2) 10/29/20 09:57 Plt Count 285 K/mm3 (140-440) 10/29/20 09:57 Lymph % (Auto) 7.7 % (13.4-35.0) L 10/29/20 09:57 [place] % (Auto) 6.1 % (0.0-7.3) 10/29/20 09:57 Eos % (Auto) 1.2 % (0.0-4.3) 10/29/20 09:57 Baso % (Auto) 1.2 % (0.0-1.8) 10/29/20 09:57 Lymph # (Auto) 0.7 K/mm3 (1.2-5.4) L 10/29/20 09:57 [place] # (Auto) 0.5 K/mm3 (0.0-0.8) 10/29/20 09:57 Eos # (Auto) 0.1 K/mm3 (0.0-0.4) 10/29/20 09:57 Baso # (Auto) 0.1 K/mm3 (0.0-0.1) 10/29/20 09:57 Add Manual Diff Complete 10/25/20 16:21 Total Counted 100 10/25/20 16:21 Seg Neutrophils % 83.8 % (40.0-70.0) H 10/29/20 09:57 Seg Neuts % (Manual) 92.0 % (40.0-70.0) H 10/25/20 16:21 Lymphocytes % (Manual) 4.0 % (13.4-35.0) L 10/25/20 16:21 Monocytes % (Manual) 4.0 % (0.0-7.3) 10/25/20 16:21 Nucleated RBC % Not Reportable 10/25/20 16:21 Seg Neutrophils # 7.2 K/mm3 (1.8-7.7) 10/29/20 09:57 Seg Neutrophils # Man 19.4 K/mm3 (1.8-7.7) H 10/25/20 16:21 Band Neutrophils # 0.0 K/mm3 10/25/20 16:21 Lymphocytes # (Manual) 0.8 K/mm3 (1.2-5.4) L 10/25/20 16:21 Abs React Lymphs (Man) 0.0 K/mm3 10/25/20 16:21 Monocytes # (Manual) 0.8 K/mm3 (0.0-0.8) 10/25/20 16:21 Eosinophils # (Manual) 0.0 K/mm3 (0.0-0.4) 10/25/20 16:21 Basophils # (Manual) 0.0 K/mm3 (0.0-0.1) 10/25/20 16:21 Metamyelocytes # 0.0 K/mm3 10/25/20 16:21 Myelocytes # 0.0 K/mm3 10/25/20 16:21 Promyelocytes # 0.0 K/mm3 10/25/20 16:21 Blast Cells # 0.0 K/mm3 10/25/20 16:21 WBC Morphology Not Reportable 10/25/20 16:21 Hypersegmented Neuts Not Reportable 10/25/20 16:21 Hyposegmented Neuts Not Reportable 10/25/20 16:21 Hypogranular Neuts Not Reportable 10/25/20 16:21 Smudge Cells Not Reportable 10/25/20 16:21 Toxic Granulation Not Reportable 10/25/20 16:21 Toxic Vacuolation Not Reportable 10/25/20 16:21 Dohle Bodies Not Reportable 10/25/20 16:21 Pelger-Huet Anomaly Not Reportable 10/25/20 16:21 Love Rods Not Reportable 10/25/20 16:21 Platelet Estimate Not Reportable 10/25/20 16:21 Clumped Platelets Not Reportable 10/25/20 16:21 Plt Clumps, EDTA Not Reportable 10/25/20 16:21 Large Platelets Not Reportable 10/25/20 16:21 Giant Platelets Not Reportable 10/25/20 16:21 Platelet Satelliting Not Reportable 10/25/20 16:21 Plt Morphology Comment Not Reportable 10/25/20 16:21 RBC Morphology Normal 10/25/20 16:21 Dimorphic RBCs Not Reportable 10/25/20 16:21 Polychromasia Not Reportable 10/25/20 16:21 Hypochromasia Not Reportable 10/25/20 16:21 Poikilocytosis Not Reportable 10/25/20 16:21 Anisocytosis Not Reportable 10/25/20 16:21 Microcytosis Not Reportable 10/25/20 16:21 Macrocytosis Not Reportable 10/25/20 16:21 Spherocytes Not Reportable 10/25/20 16:21 Pappenheimer Bodies Not Reportable 10/25/20 16:21 Sickle Cells Not Reportable 10/25/20 16:21 Target Cells Not Reportable 10/25/20 16:21 Tear Drop Cells Not Reportable 10/25/20 16:21 Ovalocytes Not Reportable 10/25/20 16:21 Helmet Cells Not Reportable 10/25/20 16:21 [place] Bodies Not Reportable 10/25/20 16:21 [place] Rings Not Reportable 10/25/20 16:21 [place] Cells Not Reportable 10/25/20 16:21 Bite Cells Not Reportable 10/25/20 16:21 Crenated Cell Not Reportable 10/25/20 16:21 Elliptocytes Not Reportable 10/25/20 16:21 Acanthocytes (Spur) Not Reportable 10/25/20 16:21 Rouleaux Not Reportable 10/25/20 16:21 Hemoglobin C Crystals Not Reportable 10/25/20 16:21 Schistocytes Not Reportable 10/25/20 16:21 Malaria parasites Not Reportable 10/25/20 16:21 [place] Bodies Not Reportable 10/25/20 16:21 Hem Pathologist Commnt No 10/25/20 16:21 Sodium 137 mmol/L (137-145) 10/29/20 09:57 Potassium 4.4 mmol/L (3.6-5.0) 10/29/20 09:57 Chloride 101.4 mmol/L (98-107) 10/29/20 09:57 Carbon Dioxide 29 mmol/L (22-30) 10/29/20 09:57 Anion Gap 11 mmol/L 10/29/20 09:57 BUN 9 mg/dL (9-20) 10/29/20 09:57 Creatinine 0.6 mg/dL (0.8-1.3) L 10/29/20 09:57 Estimated GFR > 60 ml/min 10/29/20 09:57 BUN/Creatinine Ratio 15 % 10/29/20 09:57 Glucose 271 mg/dL (75-100) H 10/29/20 09:57 POC Glucose 243 mg/dL (70-105) H 10/29/20 16:57 Hemoglobin A1c 12.5 % (4-6) H 10/25/20 16:21 Lactic Acid 0.80 mmol/L (0.7-2.0) 10/27/20 10:30 Calcium 8.7 mg/dL (8.4-10.2) 10/29/20 09:57 Magnesium 2.00 mg/dL (1.7-2.3) 10/29/20 09:57 Total Bilirubin 0.20 mg/dL (0.1-1.2) 10/29/20 09:57 AST 36 units/L (5-40) 10/29/20 09:57 ALT 67 units/L (7-56) H 10/29/20 09:57 Alkaline Phosphatase 381 units/L (35-129) H 10/29/20 09:57 Troponin T < 0.010 ng/mL (0.00-0.029) 10/27/20 10:30 C-Reactive Protein 7.30 mg/dL (0.00-1.30) H 10/29/20 09:57 NT-Pro-B Natriuret Pep 507.9 pg/mL (0-900) 10/27/20 10:30 Total Protein 6.0 g/dL (6.3-8.2) L 10/29/20 09:57 Albumin 3.0 g/dL (3.9-5) L 10/29/20 09:57 Albumin/Globulin Ratio 1.0 % 10/29/20 09:57 Free T4 1.29 ng/dL (0.76-1.46) 10/27/20 18:06 Vancomycin Trough 9.5 ug/mL (5.0-20.0) 10/27/20 18:04 Microbiology: Microbiology 10/26/20 Unknown Foot - Right Wound Culture - Final 10/25/20 16:21 Peripheral/Venous Blood Culture - Preliminary NO GROWTH AFTER 72 HOURS 10/25/20 16:26 Peripheral/Venous Blood Culture - Preliminary NO GROWTH AFTER 72 HOURS Elizabeth/IV: Voiding Method Urinal Active Medications - Current Medications Current Medications: Generic Name Dose Route Start Last Admin Trade Name Freq PRN Reason Stop Dose Admin Acetaminophen 650 mg 10/29/20 10:46 Acetaminophen 325 Mg Tab PO Q6H PRN Pain, Mild (1-3) Dextrose 50 ml 10/29/20 10:49 Dextrose 50% In Water (25gm) 50 Ml Syringe IV Q30MIN PRN Hypoglycemia Protocol Enoxaparin Sodium 40 mg 10/29/20 22:00 Enoxaparin 40 Mg/0.4 Ml Inj SUB-Q QDAY@2200 KAMERON Protocol Famotidine 20 mg 10/29/20 11:00 10/29/20 12:15 Famotidine 20 Mg Tab PO 20 mg BID KAMERON Administration Ceftriaxone Sodium 2 gm in 100 mls @ 200 mls/hr 10/29/20 02:30 10/29/20 02:36 Rocephin/Ns 2 Gm/100 Ml IV 200 mls/hr Q24H KAMERON Administration Protocol Vancomycin HCl 1,500 mg/ 530 mls @ 333.333 mls/hr 10/29/20 10:00 10/29/20 12:30 Sodium Chloride IV Infused Q12H KAMERON Infusion Amiodarone HCl 900 mg/ 500 mls @ 33.333 mls/hr 10/29/20 13:00 10/29/20 12:44 Dextrose IV 1 mg/min DIRECT KAMERON 33.333 mls/hr Administration Protocol 1 MG/MIN Insulin Human Isoph/Insulin Regular 16 unit 10/29/20 17:00 Insulin Nph/Regular 70/30 Inj SUB-Q BIDDIAB KAMERON Insulin Human Regular 0 units 10/29/20 11:30 10/29/20 12:15 Insulin Regular, Human 100 Units/1 Ml SUB-Q 3 units ACHS KAMERON Administration Protocol Oxycodone/Acetaminophen 1 tab 10/29/20 10:18 10/29/20 10:46 Oxycodone /Acetaminophen 5-325mg Tab PO 1 tab Q6H PRN Administration Pain, Moderate (4-6) Nutrition/Malnutrition Assess - Dietary Evaluation Nutrition/Malnutrition Findings: Nutrition Notes Start: 10/26/20 12:56 Freq: Status: Active Protocol: Document 10/29/20 11:49 CW (Rec: 10/29/20 11:56 CW [email or web address]) Nutrition Notes Need for Assessment generated from: MD Order Initial or Follow up Assessment Current Diagnosis Diabetes Other Pertinent Diagnosis r ankle cellulitis Current Diet consistent CHO Labs/Tests BG 271 Pertinent Medications Humulin Humalog Height 5 ft 5 in Weight 69.7 kg [place] Body Weight (kg) 61.81 BMI 25.5 Weight change and time frame weight change noted; likely r/ t to edema Weight Status Appropriate Subjective/Other Information MD order for poor PO intake. Pt is eating 75% of meals and was previously evaluated by RD . Slight weight fluctuation likely related to 1+ pitting edema that is present. Fredi score of 20. Percent of energy/protein needs met: 89%/100% GI Symptoms None Skin Integrity/Comment diabetic ulcer Current % PO Good (75-100%) Minimum of two criteria No Fluid Accumulation Mild (non-severe) #1 Nutrition Diagnosis No nutrition diagnosis at this time Is patient on ventilator? No Is Patient Ambulatory and/or Out of Bed No REE-([facility]-confined to bed) [phone] Calculation Used for Recommendations [facility] Additional Notes protein needs:56 - 70g (0.8 - 1g/kgBW) fluid needs: 1 ml/kcal Nutrition Intervention Change Diet Order: Continue current diet order Anticipated Discharge Needs: Consistent Carbohydrate diet Revisit per MD consult or patient Sign Off request: Additional Comments S/O pt meeting >75% of EER
[2020-10-29] MEDS: INSULIN NPH/REGULAR 70/30 INJ SUB-Q SCH (17:54)
[2020-10-29] MEDS ORDERED: ENOXAPARIN 40 MG/0.4 ML INJ SUB-Q SCH (22:00)
[2020-10-29] MEDS ORDERED: dilTIAZem 25 MG/5 ML INJ IV ONE (23:28)
[2020-10-30] MEDS ORDERED: MORPHINE 2 MG/1 ML INJ IV ONE (03:51)
[2020-10-30] MEDS ORDERED: dilTIAZem 25 MG/5 ML INJ IV ONE (03:52)
[2020-10-30] MEDS: cefTRIAXone/NS 2 GM/100 ML 2 GM/100 ML BAG IV SCH (04:20)
[2020-10-30] MEDS: oxyCODONE /ACETAMINOPHEN 5-325MG TAB PO PRN (07:14)
[2020-10-30] MEDS: INSULIN NPH/REGULAR 70/30 INJ SUB-Q SCH (08:48)
[2020-10-30] MEDS: INSULIN REGULAR, HUMAN 100 UNITS/1 ML SUB-Q SCH ×4 (08:48→22:33)
[2020-10-30] MEDS: FAMOTIDINE 20 MG TAB PO SCH ×2 (11:17→22:31)
[2020-10-30] MEDS: VANCOMYCIN 1,500 MG in SODIUM CHLORIDE 0.9% 500 ML 500 ML IV SCH ×2 (12:10→22:17)
--- NOTE | 2020-10-30 14:13 | Progress Note ---
Assessment and Plan Cultures: Blood culture no growth so far Wound culture pending A/P: 55-year-old man past medical history diabetes with poor compliance pre sented with right ankle tinnitus and abscess. #Acute sepsis: Present on admission with tachycardia and leukocytosis. Secondary to ankle infection #Right ankle cellulitis with abscess: Status post incision and drainage by general surgery, awaiting surgical cultures. Patient improving on current a ntibiotic regimen. MRI without evidence of osteomyelitis. #Diabetes: tight glycemic control for best outcomes. Recs: -Continue vancomycin goal trough 10-20, dosed per pharmacy. -Continue ceftriaxone 2 g every 24 hours -On discharge presented with Bactrim DS every 12 hours and Augmentin 875/125 mg every 12 hours to complete 7 more days. Thank you for the consult, we will sign off. Please call with questions. Chayito Porter MD [facility] ([facility]) O: [phone] F: [phone] Subjective Date of service: 10/30/20 Principal diagnosis: Sinus tachycardia Interval history: Afebrile, normal white count. No new issues. Remains tachycardic Objective - Exam Narrative Exam: Physical Exam: Constitutional: Alert, cooperative. No acute distress Head, Ears, Nose: Normocephalic, atraumatic. Eyes: Conjunctivae/corneas clear. No icterus. No ptosis. Neck: Supple, no meningeal signs Oral: dentition fair, no thrush Cardiovascular: S1, S2 normal. Respiratory: Good air entry, clear to auscultation bilaterally GI: Soft, non-tender; bowel sounds normal. No peritoneal signs. Musculoskeletal: Right ankle dressed Skin: No rash or abscess Hem/Lymphatic: No palpable cervical or supraclavicular nodes. No lymphangitis Psych: Mood ok. Affect normal Neurological: Awake, alert, oriented. No gross abnormality - Constitutional Vitals: Vital Signs Temp Pulse Resp BP Pulse Ox 99.4 F 142 H 23 137/70 95 10/30/20 03:34 10/30/20 06:20 10/30/20 06:20 10/30/20 06:20 10/30/20 06:00 Temperature -Last 24 Hours Temperature 99.4 F Temperature 98.1 F Temperature 98.2 F - Labs CBC & Chem 7: 10/29/20 09:57 10/29/20 09:57 Labs: Abnormal lab results 10/29/20 10/29/20 10/30/20 Range/Units 16:57 21:23 08:04 POC Glucose 243 H 171 H 123 H (70-105) mg/dL 10/30/20 Range/Units 11:45 POC Glucose 170 H (70-105) mg/dL
--- NOTE | 2020-10-30 14:33 | Progress Note ---
Assessment and Plan Echo reviewed - EF 50-55%, mild LVH, no significant valvular abnormalities. Continue IV Amio gtt for now. Start PO Lopressor 25mg TID. Will increase as BP permits. Pt has previously not responded to IV or PO Cardizem. Will start heparin gtt for now given persistent atrial flutter. Will revisit initiation of oral anticoagulation when sepsis has resolved (though there is some concern regarding compliance). Signed by: Patience Flores NP Pt seen in conjunction with Dr. Rivera, who agrees with the assessment and plan of care. - Patient Problems (1) Sepsis Current Visit: Yes Status: Acute (2) Cellulitis of right foot Current Visit: Yes Status: Acute (3) Atrial flutter Current Visit: Yes Status: Acute (4) T2DM (type 2 diabetes mellitus) Current Visit: Yes Status: Chronic (5) Medical non-compliance Current Visit: Yes Status: Chronic Subjective Date of service: 10/30/20 Principal diagnosis: Atrial Flutter Interval history: Pt's only complaint is pain in his right foot. He insists his heart rate is always high and he is not concerned about it. Tele reviewed - AFlutter 100s this AM (intermittently upon to the 140s), on Amio gtt @ 0.5mcg/kg/min. Objective Last Vital Signs Temp 99.4 F 10/30/20 03:34 Pulse 142 H 10/30/20 06:20 Resp 23 10/30/20 06:20 BP 137/70 10/30/20 06:20 Pulse Ox 95 10/30/20 06:00 - Physical Examination General: No Apparent Distress HEENT: Positive: EOMI, Normocephaly Neck: Positive: neck supple, trachea midline Cardiac: Positive: irregularly irregular, S1/S2 Lungs: Positive: clear to auscultation Neuro: Positive: Grossly Intact Abdomen: Positive: Soft. Negative: Tender Skin: Positive: Wound (R foot bandage in place). Negative: Rash Musculoskeletal: No Pain Extremities: Present: lower extr. pulses, edema (RLE) - Imaging and Cardiology EKG: report reviewed, image reviewed Echo: report reviewed - Telemetry EKG Rhythm: Atrial Flutter - EKG Sinus rhythms and dysrhythmias: sinus tachycardia
[2020-10-30] MEDS ORDERED: dilTIAZem 30 MG TAB PO SCH (14:34)
[2020-10-30] MEDS ORDERED: HEPARIN 10,000 UNITS/10 ML VIAL IV PRN (14:50)
[2020-10-30] MEDS: AMIODARONE 900 MG in DEXTROSE 5% IN WATER 482 ML IV SCH (15:36)
--- NOTE | 2020-10-30 15:50 | Progress Note ---
Assessment and Plan Assessment and plan: 55-year-old male with history of diabetes noncompliance has been having 3 weeks swelling of the right ankle and the heel with small amount of drainage on the medial part of the right ankle. Also redness on the right ankle and painful. Patient has not been taking any medications for his diabetes. Poor historian and language barrier present. No fever or chills. Pain is about 6 on a scale of 1-10. 10/27/2020: Patient has no fever and leukocytosis progressively improving on antibiotics. However he has significant sinus tachycardia about 150. EKG confirms sinus tachycardia without acute ST/T changes. Troponin normal. BP okay. He is not hypoxic. 97% on room air. Lactic acid normal. Not acidotic. CBC and CMP unremarkable. Is mentating well. Does not appear toxic. Not in significant pain currently. Patient did undergo I&D and abscess drainage yesterday. There is serosanguineous drainage from the abscess opening. There is still significant swelling and erythema around it. Has good glycemic control currently. MRI showed abscess but no osteomyelitis. Patient denies chest pains, palpitations or dyspnea. Sinus tach and appears to be physiological to infection/abscess. May need further debridement/drainage. Blood cultures negative to date. Surgical cultures were likely sent but not updated yet. Will obtain treated for, lower extremity ultrasound for DVT and give 1 L normal saline bolus. Is currently receiving normal saline 100 mL/h maintenance dose. Discussed with the nursing staff. 10/28/20 Patient is feeling better and really does not have much complaints. Swelling, erythema and drainage from the abscess at right ankle all improving. Pain is better. Afebrile with resolving leukocytosis on antibiotics. Blood cultures negative to date. No report on the surgical consults yet. ID consulted, Unasyn changed to Rocephin.Continue Vanco. Acceptable glycemic control. Persistently tachycardic at 150, possible atrial tach vs SVT/AF, on po caedizem. Echo ok. Cardiology consulted,transferring to [facility] for cardizem drip. Denies chest, palp,dyspnea. 10/29/2020: Patient remains afebrile. Wound opening below right medial malleolus is not draining much. Surrounding swelling and erythema improving. Leukocytosis resolved. Hemodynamically stable. Persistent atrial tachycardia with possible intermittent atrial flutter unresponsive to Cardizem drip. Cardiology is planning to start amiodarone infusion today. 10/30/2020: Patient was started on amiodarone yesterday evening with significant improvement of heart rate and revealing the underlying rhythm of atrial flutter and atrial fibrillation. However, amiodarone was discontinued early this morning with heart rate in 90s. A. fib with RVR recurred several hours later and amiodarone resumed in a.m. heart rate brought under control. Patient remains afebrile. He has some pain in the right ankle but not significantly. The abscess is not draining much. Swelling and erythema better. Right pedal pulses diminished with Doppler, will order arterial Doppler study. Will start Eliquis for now. (1) sepsis with cellulitis of foot, rule out septic arthritis of ankle Current Visit: Yes Status: Acute Plan to address problem: Right ankle swollen with drainage on the medial aspect Likely underlying small abscess Surgical consult requested and I/D to perform this afternoon. X-ray of the foot and ankle not helpful Low-grade fever, leukocytosis improving, lactic acid normal at the time of admission, blood cultures pending. Patient does not look toxic, mentating well with stable vital signs. However he has a sinus tachycardia reactive to sepsis/abscess, expiratory improved with I/D. IV Unasyn and vancomycin initiated Cultures from I/D to be sent to lab. 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 Patient initiated on insulin coverage for now Diabetes education Patient to be initiated on insulin 70/30 twice a day with high-dose sliding scale coverage (3) atrial flutter/A. fib with RVR VT prophylaxis Current Visit: Yes Status: Acute Plan to address problem: On heparin and GI prophylaxis d/w pt and RN History Interval history: Patient was started on amiodarone yesterday evening with significant improvement of heart rate and revealing the underlying rhythm of atrial flutter and atrial fibrillation. However, amiodarone was discontinued early this morning with heart rate in 90s. A. fib with RVR recurred several hours later and amiodarone resumed in a.m. heart rate brought under control. Patient remains afebrile. He has some pain in the right ankle but not significantly. The abscess is not draining much. Swelling and erythema better. Hospitalist Physical - Constitutional Vitals: Temp Pulse Resp BP Pulse Ox 97.6 F 139 H 18 167/86 97 10/30/20 12:00 10/30/20 14:50 10/30/20 14:50 10/30/20 14:50 10/30/20 14:50 General appearance: Present: no acute distress - EENT Eyes: Present: PERRL, EOM intact ENT: clear oral mucosa - Neck Neck: Present: supple, other (No JVD) - Respiratory Respiratory effort: normal Respiratory: bilateral: CTA - Cardiovascular Rhythm: irregularly irregular - Extremities Extremities: No edema Extremity abnormal: other (Abscess opening closing due to not packing, no signif icant drainage, surrounding erythema and swelling improving. Right ankle ROM reduced due to pain and swelling. Right pedal pulses diminished with the Doppler.) Peripheral Pulses: abnormal (Right pedal pulses diminished.) - Abdominal General gastrointestinal: soft, non-tender, non-distended, normal bowel sounds - Integumentary Integumentary: Absent: rash - Psychiatric Psychiatric: appropriate mood/affect - Neurologic Neurologic: no focal deficits HEART Score - HEART Score Troponin: Troponin T < 0.010 ng/mL (0.00-0.029) 10/27/20 10:30 Results - Labs CBC & Chem 7: 10/29/20 09:57 10/29/20 09:57 Labs: Laboratory Last Values WBC 8.6 K/mm3 (4.5-11.0) 10/29/20 09:57 RBC 3.83 M/mm3 (3.65-5.03) 10/29/20 09:57 Hgb 11.9 gm/dl (11.8-15.2) 10/29/20 09:57 Hct 35.2 % (35.5-45.6) L 10/29/20 09:57 MCV 92 fl (84-94) 10/29/20 09:57 MCH 31 pg (28-32) 10/29/20 09:57 MCHC 34 % (32-34) 10/29/20 09:57 RDW 13.3 % (13.2-15.2) 10/29/20 09:57 Plt Count 285 K/mm3 (140-440) 10/29/20 09:57 Lymph % (Auto) 7.7 % (13.4-35.0) L 10/29/20 09:57 [place] % (Auto) 6.1 % (0.0-7.3) 10/29/20 09:57 Eos % (Auto) 1.2 % (0.0-4.3) 10/29/20 09:57 Baso % (Auto) 1.2 % (0.0-1.8) 10/29/20 09:57 Lymph # (Auto) 0.7 K/mm3 (1.2-5.4) L 10/29/20 09:57 [place] # (Auto) 0.5 K/mm3 (0.0-0.8) 10/29/20 09:57 Eos # (Auto) 0.1 K/mm3 (0.0-0.4) 10/29/20 09:57 Baso # (Auto) 0.1 K/mm3 (0.0-0.1) 10/29/20 09:57 Add Manual Diff Complete 10/25/20 16:21 Total Counted 100 10/25/20 16:21 Seg Neutrophils % 83.8 % (40.0-70.0) H 10/29/20 09:57 Seg Neuts % (Manual) 92.0 % (40.0-70.0) H 10/25/20 16:21 Lymphocytes % (Manual) 4.0 % (13.4-35.0) L 10/25/20 16:21 Monocytes % (Manual) 4.0 % (0.0-7.3) 10/25/20 16:21 Nucleated RBC % Not Reportable 10/25/20 16:21 Seg Neutrophils # 7.2 K/mm3 (1.8-7.7) 10/29/20 09:57 Seg Neutrophils # Man 19.4 K/mm3 (1.8-7.7) H 10/25/20 16:21 Band Neutrophils # 0.0 K/mm3 10/25/20 16:21 Lymphocytes # (Manual) 0.8 K/mm3 (1.2-5.4) L 10/25/20 16:21 Abs React Lymphs (Man) 0.0 K/mm3 10/25/20 16:21 Monocytes # (Manual) 0.8 K/mm3 (0.0-0.8) 10/25/20 16:21 Eosinophils # (Manual) 0.0 K/mm3 (0.0-0.4) 10/25/20 16:21 Basophils # (Manual) 0.0 K/mm3 (0.0-0.1) 10/25/20 16:21 Metamyelocytes # 0.0 K/mm3 10/25/20 16:21 Myelocytes # 0.0 K/mm3 10/25/20 16:21 Promyelocytes # 0.0 K/mm3 10/25/20 16:21 Blast Cells # 0.0 K/mm3 10/25/20 16:21 WBC Morphology Not Reportable 10/25/20 16:21 Hypersegmented Neuts Not Reportable 10/25/20 16:21 Hyposegmented Neuts Not Reportable 10/25/20 16:21 Hypogranular Neuts Not Reportable 10/25/20 16:21 Smudge Cells Not Reportable 10/25/20 16:21 Toxic Granulation Not Reportable 10/25/20 16:21 Toxic Vacuolation Not Reportable 10/25/20 16:21 Dohle Bodies Not Reportable 10/25/20 16:21 Pelger-Huet Anomaly Not Reportable 10/25/20 16:21 Love Rods Not Reportable 10/25/20 16:21 Platelet Estimate Not Reportable 10/25/20 16:21 Clumped Platelets Not Reportable 10/25/20 16:21 Plt Clumps, EDTA Not Reportable 10/25/20 16:21 Large Platelets Not Reportable 10/25/20 16:21 Giant Platelets Not Reportable 10/25/20 16:21 Platelet Satelliting Not Reportable 10/25/20 16:21 Plt Morphology Comment Not Reportable 10/25/20 16:21 RBC Morphology Normal 10/25/20 16:21 Dimorphic RBCs Not Reportable 10/25/20 16:21 Polychromasia Not Reportable 10/25/20 16:21 Hypochromasia Not Reportable 10/25/20 16:21 Poikilocytosis Not Reportable 10/25/20 16:21 Anisocytosis Not Reportable 10/25/20 16:21 Microcytosis Not Reportable 10/25/20 16:21 Macrocytosis Not Reportable 10/25/20 16:21 Spherocytes Not Reportable 10/25/20 16:21 Pappenheimer Bodies Not Reportable 10/25/20 16:21 Sickle Cells Not Reportable 10/25/20 16:21 Target Cells Not Reportable 10/25/20 16:21 Tear Drop Cells Not Reportable 10/25/20 16:21 Ovalocytes Not Reportable 10/25/20 16:21 Helmet Cells Not Reportable 10/25/20 16:21 Paz-Velma Bodies Not Reportable 10/25/20 16:21 [place] Rings Not Reportable 10/25/20 16:21 [place] Cells Not Reportable 10/25/20 16:21 Bite Cells Not Reportable 10/25/20 16:21 Crenated Cell Not Reportable 10/25/20 16:21 Elliptocytes Not Reportable 10/25/20 16:21 Acanthocytes (Spur) Not Reportable 10/25/20 16:21 Rouleaux Not Reportable 10/25/20 16:21 Hemoglobin C Crystals Not Reportable 10/25/20 16:21 Schistocytes Not Reportable 10/25/20 16:21 Malaria parasites Not Reportable 10/25/20 16:21 [place] Bodies Not Reportable 10/25/20 16:21 Hem Pathologist Commnt No 10/25/20 16:21 Sodium 137 mmol/L (137-145) 10/29/20 09:57 Potassium 4.4 mmol/L (3.6-5.0) 10/29/20 09:57 Chloride 101.4 mmol/L (98-107) 10/29/20 09:57 Carbon Dioxide 29 mmol/L (22-30) 10/29/20 09:57 Anion Gap 11 mmol/L 10/29/20 09:57 BUN 9 mg/dL (9-20) 10/29/20 09:57 Creatinine 0.6 mg/dL (0.8-1.3) L 10/29/20 09:57 Estimated GFR > 60 ml/min 10/29/20 09:57 BUN/Creatinine Ratio 15 % 10/29/20 09:57 Glucose 271 mg/dL (75-100) H 10/29/20 09:57 POC Glucose 170 mg/dL (70-105) H 10/30/20 11:45 Hemoglobin A1c 12.5 % (4-6) H 10/25/20 16:21 Lactic Acid 0.80 mmol/L (0.7-2.0) 10/27/20 10:30 Calcium 8.7 mg/dL (8.4-10.2) 10/29/20 09:57 Magnesium 2.00 mg/dL (1.7-2.3) 10/29/20 09:57 Total Bilirubin 0.20 mg/dL (0.1-1.2) 10/29/20 09:57 AST 36 units/L (5-40) 10/29/20 09:57 ALT 67 units/L (7-56) H 10/29/20 09:57 Alkaline Phosphatase 381 units/L (35-129) H 10/29/20 09:57 Troponin T < 0.010 ng/mL (0.00-0.029) 10/27/20 10:30 C-Reactive Protein 7.30 mg/dL (0.00-1.30) H 10/29/20 09:57 NT-Pro-B Natriuret Pep 507.9 pg/mL (0-900) 10/27/20 10:30 Total Protein 6.0 g/dL (6.3-8.2) L 10/29/20 09:57 Albumin 3.0 g/dL (3.9-5) L 10/29/20 09:57 Albumin/Globulin Ratio 1.0 % 10/29/20 09:57 Free T4 1.29 ng/dL (0.76-1.46) 10/27/20 18:06 Vancomycin Trough 9.5 ug/mL (5.0-20.0) 10/27/20 18:04 Microbiology: Microbiology 10/25/20 16:21 Peripheral/Venous Blood Culture - Preliminary NO GROWTH AFTER 4 DAYS 10/25/20 16:26 Peripheral/Venous Blood Culture - Preliminary NO GROWTH AFTER 4 DAYS 10/26/20 Unknown Foot - Right Wound Culture - Final Elizabeth/IV: Voiding Method Urinal Active Medications - Current Medications Current Medications: Generic Name Dose Route Start Last Admin Trade Name Freq PRN Reason Stop Dose Admin Acetaminophen 650 mg 10/29/20 10:46 Acetaminophen 325 Mg Tab PO Q6H PRN Pain, Mild (1-3) Dextrose 50 ml 10/29/20 10:49 Dextrose 50% In Water (25gm) 50 Ml Syringe IV Q30MIN PRN Hypoglycemia Protocol Famotidine 20 mg 10/29/20 11:00 10/30/20 11:17 Famotidine 20 Mg Tab PO 20 mg BID KAMERON Administration Heparin Sodium (Porcine) 2,800 unit 10/30/20 14:50 Heparin 10,000 Units/10 Ml Vial 40 unit/kg (2800 unit) IV Q6H PRN Anti-Xa Assay < 0.1 units/ml Ceftriaxone Sodium 2 gm in 100 mls @ 200 mls/hr 10/29/20 02:30 10/30/20 04:20 Rocephin/Ns 2 Gm/100 Ml IV 200 mls/hr Q24H KAMERON Administration Protocol Vancomycin HCl 1,500 mg/ 530 mls @ 333.333 mls/hr 10/29/20 10:00 10/30/20 12:10 Sodium Chloride IV 333.333 mls/hr Q12H KAMERON Administration Amiodarone HCl 900 mg/ 500 mls @ 16.667 mls/hr 10/29/20 13:00 10/30/20 15:36 Dextrose IV 0.5 mg/min DIRECT KAMERON 16.667 mls/hr Administration Protocol 0.5 MG/MIN Heparin Sodium/Sodium Chloride 25,000 unit in 500 mls @ 20 mls/hr 10/30/20 15:00 Heparin/ 0.45% Nacl-25,000 Unit/500 Ml IV TITR KAMERON Protocol 1,000 UNITS/HR Insulin Human Isoph/Insulin Regular 16 unit 10/29/20 17:00 10/30/20 08:48 Insulin Nph/Regular 70/30 Inj SUB-Q 16 unit BIDDIAB KAMERON Administration Insulin Human Regular 0 units 10/29/20 11:30 10/30/20 12:15 Insulin Regular, Human 100 Units/1 Ml SUB-Q 1 units ACHS KAMERON Administration Protocol Metoprolol Tartrate 25 mg 10/30/20 20:00 Metoprolol Tartrate 25 Mg Tab PO TID KAMERON Oxycodone/Acetaminophen 1 tab 10/29/20 10:18 10/30/20 07:14 Oxycodone /Acetaminophen 5-325mg Tab PO 1 tab Q6H PRN Administration Pain, Moderate (4-6) Nutrition/Malnutrition Assess - Dietary Evaluation Nutrition/Malnutrition Findings: Nutrition Notes Start: 10/26/20 12:56 Freq: Status: Active Protocol: Document 10/29/20 11:49 CW (Rec: 10/29/20 11:56 CW [email or web address]) Nutrition Notes Need for Assessment generated from: MD Order Initial or Follow up Assessment Current Diagnosis Diabetes Other Pertinent Diagnosis r ankle cellulitis Current Diet consistent CHO Labs/Tests BG 271 Pertinent Medications Humulin Humalog Height 5 ft 5 in Weight 69.7 kg Smock Body Weight (kg) 61.81 BMI 25.5 Weight change and time frame weight change noted; likely r/ t to edema Weight Status Appropriate Subjective/Other Information MD order for poor PO intake. Pt is eating 75% of meals and was previously evaluated by RD . Slight weight fluctuation likely related to 1+ pitting edema that is present. Fredi score of 20. Percent of energy/protein needs met: 89%/100% GI Symptoms None Skin Integrity/Comment diabetic ulcer Current % PO Good (75-100%) Minimum of two criteria No Fluid Accumulation Mild (non-severe) #1 Nutrition Diagnosis No nutrition diagnosis at this time Is patient on ventilator? No Is Patient Ambulatory and/or Out of Bed No REE-(Maynard-St. Jeor-confined to bed) 1531.091 Calculation Used for Recommendations Maynard-St Jeor Additional Notes protein needs:56 - 70g (0.8 - 1g/kgBW) fluid needs: 1 ml/kcal Nutrition Intervention Change Diet Order: Continue current diet order Anticipated Discharge Needs: Consistent Carbohydrate diet Revisit per MD consult or patient Sign Off request: Additional Comments S/O pt meeting >75% of EER
[2020-10-30 16:01] LABS: INR 1.06 (0.87-1.13)
[2020-10-30 16:02] LABS: Partial Thromboplastin Time 32.2 Sec. (24.2-36.6)
[2020-10-30] MEDS: GABAPENTIN 100 MG CAP PO SCH ×2 (16:25→22:31)
[2020-10-30] MEDS: INSULIN NPH, HUMAN 100 UNIT/1 ML SUB-Q SCH (16:27)
[2020-10-30] MEDS: HEPARIN/ 0.45% NACL DRIP 25,000 UNIT/500 ML BAG IV SCH (16:28)
[2020-10-30] MEDS: INSULIN LISPRO 100 UNIT/ML SUB-Q SCH (18:09)
[2020-10-30] MEDS: METOPROLOL TARTRATE 25 MG TAB PO SCH (22:31)
[2020-10-31] MEDS: cefTRIAXone/NS 2 GM/100 ML 2 GM/100 ML BAG IV SCH (03:26)
[2020-10-31] MEDS: oxyCODONE /ACETAMINOPHEN 5-325MG TAB PO PRN (03:32)
[2020-10-31] MEDS: GABAPENTIN 100 MG CAP PO SCH ×3 (07:31→22:34)
[2020-10-31 07:46] LABS: Basophils # (Auto) 0.1 K/mm3 (0.0-0.1); Basophils % (Auto) 0.7 % (0.0-1.8); Eosinophils # (Auto) 0.1 K/mm3 (0.0-0.4); Eosinophils % (Auto) 1.1 % (0.0-4.3); Hematocrit 35.2 % (35.5-45.6); Hemoglobin 11.7 gm/dl (11.8-15.2); Lymphocytes % (Auto) 10.5 % (13.4-35.0); Mean Corpuscular HGB Conc 33 % (32-34); Mean Corpuscular Volume 91 fl (84-94); Monocytes # (Auto) 0.7 K/mm3 (0.0-0.8); Monocytes % (Auto) 6.6 % (0.0-7.3); Platelet Count 330 K/mm3 (140-440); Red Blood Count 3.85 M/mm3 (3.65-5.03); Red Cell Distribution Width 13.5 % (13.2-15.2)
[2020-10-31] MEDS: INSULIN LISPRO 100 UNIT/ML SUB-Q SCH ×3 (08:07→16:20)
[2020-10-31] MEDS: INSULIN REGULAR, HUMAN 100 UNITS/1 ML SUB-Q SCH ×4 (08:07→22:33)
[2020-10-31 08:08] LABS: Alanine Aminotransferase 58 units/L (7-56); Albumin 2.7 g/dL (3.9-5); Blood Urea Nitrogen 6 mg/dL (9-20); Calcium 8.8 mg/dL (8.4-10.2); Hemolysis Index 3
[2020-10-31] MEDS: INSULIN NPH, HUMAN 100 UNIT/1 ML SUB-Q SCH ×2 (08:12→18:27)
[2020-10-31 08:19] LABS: BUN/Creatinine Ratio 10
[2020-10-31] MEDS: FAMOTIDINE 20 MG TAB PO SCH ×2 (09:41→22:34)
[2020-10-31] MEDS: METOPROLOL TARTRATE 25 MG TAB PO SCH (09:41)
[2020-10-31] MEDS: VANCOMYCIN 1,500 MG in SODIUM CHLORIDE 0.9% 500 ML 500 ML IV SCH ×2 (09:43→22:33)
[2020-10-31] MEDS: METOPROLOL TARTRATE 100 MG TAB PO SCH ×2 (10:59→22:34)
--- NOTE | 2020-10-31 13:11 | Progress Note ---
Assessment and Plan Aflutter in setting of sepsis * Telemetry reviewed: A flutter 2:1 conduction rate. Continue to monitor on telemetry * Echocardiogram 10/28/2020: LVEF is 50 to 55%. LV normal size. LV SF is normal. Mild LVH. RV SF is grossly normal. Mild TR, RVSP 28 mmHg. * Optimize rate control: Discontinue amiodarone drip. Increase metoprolol to 100 mg twice daily * Anticoagulated with heparin drip Sepsis secondary to right lower extremity cellulitis s/p surgical incision and drainage * Currently on vancomycin regime * Infectious diseases currently following Uncontrolled diabetes mellitus * Management per primary team DVT prophylaxis * Management per primary team Patient currently in stable cardiac status. Patient okay to transfer to telemetry floor from cardiac standpoint. Will follow This patient was seen in conjunction with Dr Read who agrees with this assessment and plan of care - Patient Problems (1) Sepsis Current Visit: Yes Status: Acute (2) Abscess of right foot Current Visit: Yes Status: Acute (3) Cellulitis of right foot Current Visit: Yes Status: Acute (4) DVT prophylaxis Current Visit: Yes Status: Acute (5) T2DM (type 2 diabetes mellitus) Current Visit: Yes Status: Chronic (6) Atrial flutter Current Visit: Yes Status: Acute Subjective Date of service: 10/31/20 Principal diagnosis: Atrial Flutter, sepsis Interval history: Patient resting comfortably in bed. No chest pain or shortness of breath overnight Telemetry reviewed: A flutter 80s to 90s. No events Objective Last Vital Signs Temp 97.9 F 10/31/20 12:00 Pulse 89 10/31/20 11:00 Resp 13 10/31/20 11:00 BP 163/90 10/31/20 11:00 Pulse Ox 100 10/31/20 11:00 - Physical Examination General: No Apparent Distress HEENT: Positive: EOMI, Normocephaly Neck: Positive: neck supple, trachea midline Cardiac: Positive: irregularly irregular, S1/S2 Lungs: Positive: Normal Exam, Normal Breath Sounds Neuro: Positive: Grossly Intact Abdomen: Positive: Soft. Negative: Tender Skin: Positive: Wound (R foot bandage in place). Negative: Rash Musculoskeletal: No Pain Extremities: Present: lower extr. pulses, edema (RLE) - Labs and Meds Cardiac Enzymes 10/31/20 Range/Units 06:57 AST 34 (5-40) units/L Coagulation 10/30/20 Range/Units 15:14 PT 14.3 (12.2-14.9) Sec. INR 1.06 (0.87-1.13) APTT 32.2 (24.2-36.6) Sec. CBC 10/31/20 Range/Units 06:57 WBC 9.9 (4.5-11.0) K/mm3 RBC 3.85 (3.65-5.03) M/mm3 Hgb 11.7 L (11.8-15.2) gm/dl Hct 35.2 L (35.5-45.6) % Plt Count 330 (140-440) K/mm3 Lymph # (Auto) 1.0 L (1.2-5.4) K/mm3 [place] # (Auto) 0.7 (0.0-0.8) K/mm3 Eos # (Auto) 0.1 (0.0-0.4) K/mm3 Baso # (Auto) 0.1 (0.0-0.1) K/mm3 Comprehensive Metabolic Panel 10/31/20 Range/Units 06:57 Sodium 138 (137-145) mmol/L Potassium 4.1 (3.6-5.0) mmol/L Chloride 104.5 (98-107) mmol/L Carbon Dioxide 27 (22-30) mmol/L BUN 6 L (9-20) mg/dL Creatinine 0.6 L (0.8-1.3) mg/dL Glucose 81 (75-100) mg/dL Calcium 8.8 (8.4-10.2) mg/dL AST 34 (5-40) units/L ALT 58 H (7-56) units/L Alkaline Phosphatase 379 H (35-129) units/L Total Protein 6.3 (6.3-8.2) g/dL Albumin 2.7 L (3.9-5) g/dL - Imaging and Cardiology EKG: report reviewed, image reviewed Echo: report reviewed - Telemetry EKG Rhythm: Atrial Flutter - EKG Sinus rhythms and dysrhythmias: sinus tachycardia
--- NOTE | 2020-10-31 14:43 | Vascular Lab Report ---
BILATERAL DUPLEX ARTERIAL DOPPLER EXAMINATION OF THE LOWER EXTREMITIES WITH SPECTRAL ANALYSIS INDICATION: Peripheral arterial disease with right foot abscess, history of diabetes, history of seps is, history of hypertension COMPARISON: 10/26/2020 FINDINGS: ABIs were not obtained. Good flow is seen throughout both lower extremities to and including the dorsalis pedis arteries. [place] aterally triphasic waveforms are noted with the exception of monophasic waveforms in the right food cooking machine operator ior tibial artery. I do not see a significant velocity change to strongly suggest a hemodynamically s ignificant segmental stenosis. IMPRESSION: No significant lesions are seen Signer Name: Marcelo Flores MD Signed: 10/31/2020 2:39 PM Workstation Name: [email or web address]
[2020-10-31] MEDS: HEPARIN/ 0.45% NACL DRIP 25,000 UNIT/500 ML BAG IV SCH (15:11)
--- NOTE | 2020-10-31 15:59 | Vascular Lab Report ---
ANKLE BRACHIAL INDICES EVALUATION INDICATION: Peripheral artery disease with right foot abscess. COMPARISON: Bilateral lower extremity arterial Doppler performed earlier today. FINDINGS: Ankle-brachial indices are normal, measuring 1.29 on the right and 1.34 on the left. IMPRESSION: Normal ankle-brachial indices. Signer Name: Eliu Nava MD Signed: 10/31/2020 3:55 PM Workstation Name: [email or web address]
--- NOTE | 2020-10-31 17:55 | Progress Note ---
Assessment and Plan Assessment and plan: 55-year-old male with history of diabetes noncompliance has been having 3 weeks swelling of the right ankle and the heel with small amount of drainage on the medial part of the right ankle. Also redness on the right ankle and painful. Patient has not been taking any medications for his diabetes. Poor historian and language barrier present. No fever or chills. Pain is about 6 on a scale of 1-10. 10/27/2020: Patient has no fever and leukocytosis progressively improving on antibiotics. However he has significant sinus tachycardia about 150. EKG confirms sinus tachycardia without acute ST/T changes. Troponin normal. BP okay. He is not hypoxic. 97% on room air. Lactic acid normal. Not acidotic. CBC and CMP unremarkable. Is mentating well. Does not appear toxic. Not in significant pain currently. Patient did undergo I&D and abscess drainage yesterday. There is serosanguineous drainage from the abscess opening. There is still significant swelling and erythema around it. Has good glycemic control currently. MRI showed abscess but no osteomyelitis. Patient denies chest pains, palpitations or dyspnea. Sinus tach and appears to be physiological to infection/abscess. May need further debridement/drainage. Blood cultures negative to date. Surgical cultures were likely sent but not updated yet. Will obtain treated for, lower extremity ultrasound for DVT and give 1 L normal saline bolus. Is currently receiving normal saline 100 mL/h maintenance dose. Discussed with the nursing staff. 10/28/20 Patient is feeling better and really does not have much complaints. Swelling, erythema and drainage from the abscess at right ankle all improving. Pain is better. Afebrile with resolving leukocytosis on antibiotics. Blood cultures negative to date. No report on the surgical consults yet. ID consulted, Unasyn changed to Rocephin.Continue Vanco. Acceptable glycemic control. Persistently tachycardic at 150, possible atrial tach vs SVT/AF, on po caedizem. Echo ok. Cardiology consulted,transferring to [facility] for cardizem drip. Denies chest, palp,dyspnea. 10/29/2020: Patient remains afebrile. Wound opening below right medial malleolus is not draining much. Surrounding swelling and erythema improving. Leukocytosis resolved. Hemodynamically stable. Persistent atrial tachycardia with possible intermittent atrial flutter unresponsive to Cardizem drip. Cardiology is planning to start amiodarone infusion today. 10/30/2020: Patient was started on amiodarone yesterday evening with significant improvement of heart rate and revealing the underlying rhythm of atrial flutter and atrial fibrillation. However, amiodarone was discontinued early this morning with heart rate in 90s. A. fib with RVR recurred several hours later and amiodarone resumed in a.m. heart rate brought under control. Patient remains afebrile. He has some pain in the right ankle but not significantly. The abscess is not draining much. Swelling and erythema better. Right pedal pulses diminished with Doppler, will order arterial Doppler study. Will start Eliquis for now. 10/31/2020: Patient remains on amiodarone infusion continue A. fib, rate controlled. Hemodynamically stable. Afebrile. Swelling and erythema at ankle improving. No drainage from abscess. Cardio recommends changing amiodarone to high-dose beta-antonio, Lopressor 100 mg twice daily and changing heparin infusion to Eliquis. The patient will qualify for free Eliquis supply based on his income status. Will transfer back to floor. (1) sepsis with abscess and cellulitis of right foot, rule out septic arthritis of ankle Current Visit: Yes Status: Acute Plan to address problem: Right ankle swollen with drainage on the medial aspect Surgical consult requested and I/D to perform this afternoon. X-ray of the foot and ankle not helpful s/p abscess I&D draining purulence IV Unasyn and vancomycin initiated, Unasyn later changed to Rocephin by ID. Cultures from I/D negative to date. (2) T2DM (type 2 diabetes mellitus), A1c 12.5 Current Visit: Yes Status: Chronic Qualifiers: Diabetes mellitus nursing home insulin use: unspecified nursing home insulin use status Plan to address problem: Apparently patient not taking any medication. Patient initiated on insulin coverage for now Diabetes education Patient to be initiated on insulin 70/30 twice a day with high-dose sliding scale coverage (3) atrial flutter/A. fib with RVR Did not respond to p.o./IV diltiazem but controlled with amiodarone. Changed to beta-antonio by cardiology on 10/31 Cardiology recommends changing heparin infusion to beta-antonio (4) diminished pedal pulses by palpation Arterial duplex study ordered and vascular surgery consult requested. (5) diabetic neuropathy Started Neurontin VT prophylaxis Current Visit: Yes Status: Acute Plan to address problem: On heparin and GI prophylaxis d/w pt and RN History Interval history: Patient remains on amiodarone infusion and atrial fibrillation rate is controlled, in 90s. BP normal. Patient doing chest pains, palpitations or dyspnea. No lightheadedness. Patient remains afebrile. Pain in the right ankle is better controlled with adding Neurontin.. No significant drainage from abscess. Swelling and erythema better. Hospitalist Physical - Constitutional Vitals: Temp Pulse Resp BP Pulse Ox 98 F 78 15 112/70 97 10/31/20 16:00 10/31/20 16:00 10/31/20 16:00 10/31/20 16:00 10/31/20 16:00 General appearance: Present: no acute distress - EENT Eyes: Present: PERRL, EOM intact. Absent: scleral icterus, conjunctival injection ENT: clear oral mucosa - Neck Neck: Present: supple, other (No JVD) - Respiratory Respiratory effort: normal Respiratory: bilateral: CTA - Cardiovascular Rhythm: other (A. fib, rate controlled) - Extremities Extremities: No edema Extremity abnormal: other (Edema and erythema around right medial ankle much better, abscess opening is closing) Peripheral Pulses: abnormal (Pedal pulses diminished.) - Abdominal General gastrointestinal: soft, non-tender, non-distended, normal bowel sounds - Integumentary Integumentary: Absent: rash - Psychiatric Psychiatric: appropriate mood/affect HEART Score - HEART Score Troponin: Troponin T < 0.010 ng/mL (0.00-0.029) 10/27/20 10:30 Results - Labs CBC & Chem 7: 10/31/20 06:57 10/31/20 06:57 Labs: Laboratory Last Values WBC 9.9 K/mm3 (4.5-11.0) 10/31/20 06:57 RBC 3.85 M/mm3 (3.65-5.03) 10/31/20 06:57 Hgb 11.7 gm/dl (11.8-15.2) L 10/31/20 06:57 Hct 35.2 % (35.5-45.6) L 10/31/20 06:57 MCV 91 fl (84-94) 10/31/20 06:57 MCH 30 pg (28-32) 10/31/20 06:57 MCHC 33 % (32-34) 10/31/20 06:57 RDW 13.5 % (13.2-15.2) 10/31/20 06:57 Plt Count 330 K/mm3 (140-440) 10/31/20 06:57 Lymph % (Auto) 10.5 % (13.4-35.0) L 10/31/20 06:57 [place] % (Auto) 6.6 % (0.0-7.3) 10/31/20 06:57 Eos % (Auto) 1.1 % (0.0-4.3) 10/31/20 06:57 Baso % (Auto) 0.7 % (0.0-1.8) 10/31/20 06:57 Lymph # (Auto) 1.0 K/mm3 (1.2-5.4) L 10/31/20 06:57 [place] # (Auto) 0.7 K/mm3 (0.0-0.8) 10/31/20 06:57 Eos # (Auto) 0.1 K/mm3 (0.0-0.4) 10/31/20 06:57 Baso # (Auto) 0.1 K/mm3 (0.0-0.1) 10/31/20 06:57 Add Manual Diff Complete 10/25/20 16:21 Total Counted 100 10/25/20 16:21 Seg Neutrophils % 81.1 % (40.0-70.0) H 10/31/20 06:57 Seg Neuts % (Manual) 92.0 % (40.0-70.0) H 10/25/20 16:21 Lymphocytes % (Manual) 4.0 % (13.4-35.0) L 10/25/20 16:21 Monocytes % (Manual) 4.0 % (0.0-7.3) 10/25/20 16:21 Nucleated RBC % Not Reportable 10/25/20 16:21 Seg Neutrophils # 8.0 K/mm3 (1.8-7.7) H 10/31/20 06:57 Seg Neutrophils # Man 19.4 K/mm3 (1.8-7.7) H 10/25/20 16:21 Band Neutrophils # 0.0 K/mm3 10/25/20 16:21 Lymphocytes # (Manual) 0.8 K/mm3 (1.2-5.4) L 10/25/20 16:21 Abs React Lymphs (Man) 0.0 K/mm3 10/25/20 16:21 Monocytes # (Manual) 0.8 K/mm3 (0.0-0.8) 10/25/20 16:21 Eosinophils # (Manual) 0.0 K/mm3 (0.0-0.4) 10/25/20 16:21 Basophils # (Manual) 0.0 K/mm3 (0.0-0.1) 10/25/20 16:21 Metamyelocytes # 0.0 K/mm3 10/25/20 16:21 Myelocytes # 0.0 K/mm3 10/25/20 16:21 Promyelocytes # 0.0 K/mm3 10/25/20 16:21 Blast Cells # 0.0 K/mm3 10/25/20 16:21 WBC Morphology Not Reportable 10/25/20 16:21 Hypersegmented Neuts Not Reportable 10/25/20 16:21 Hyposegmented Neuts Not Reportable 10/25/20 16:21 Hypogranular Neuts Not Reportable 10/25/20 16:21 Smudge Cells Not Reportable 10/25/20 16:21 Toxic Granulation Not Reportable 10/25/20 16:21 Toxic Vacuolation Not Reportable 10/25/20 16:21 Dohle Bodies Not Reportable 10/25/20 16:21 Pelger-Huet Anomaly Not Reportable 10/25/20 16:21 Love Rods Not Reportable 10/25/20 16:21 Platelet Estimate Not Reportable 10/25/20 16:21 Clumped Platelets Not Reportable 10/25/20 16:21 Plt Clumps, EDTA Not Reportable 10/25/20 16:21 Large Platelets Not Reportable 10/25/20 16:21 Giant Platelets Not Reportable 10/25/20 16:21 Platelet Satelliting Not Reportable 10/25/20 16:21 Plt Morphology Comment Not Reportable 10/25/20 16:21 RBC Morphology Normal 10/25/20 16:21 Dimorphic RBCs Not Reportable 10/25/20 16:21 Polychromasia Not Reportable 10/25/20 16:21 Hypochromasia Not Reportable 10/25/20 16:21 Poikilocytosis Not Reportable 10/25/20 16:21 Anisocytosis Not Reportable 10/25/20 16:21 Microcytosis Not Reportable 10/25/20 16:21 Macrocytosis Not Reportable 10/25/20 16:21 Spherocytes Not Reportable 10/25/20 16:21 Pappenheimer Bodies Not Reportable 10/25/20 16:21 Sickle Cells Not Reportable 10/25/20 16:21 Target Cells Not Reportable 10/25/20 16:21 Tear Drop Cells Not Reportable 10/25/20 16:21 Ovalocytes Not Reportable 10/25/20 16:21 Helmet Cells Not Reportable 10/25/20 16:21 Paz-Weiser Bodies Not Reportable 10/25/20 16:21 [place] Rings Not Reportable 10/25/20 16:21 [place] Cells Not Reportable 10/25/20 16:21 Bite Cells Not Reportable 10/25/20 16:21 Crenated Cell Not Reportable 10/25/20 16:21 Elliptocytes Not Reportable 10/25/20 16:21 Acanthocytes (Spur) Not Reportable 10/25/20 16:21 Rouleaux Not Reportable 10/25/20 16:21 Hemoglobin C Crystals Not Reportable 10/25/20 16:21 Schistocytes Not Reportable 10/25/20 16:21 Malaria parasites Not Reportable 10/25/20 16:21 [place] Bodies Not Reportable 10/25/20 16:21 Hem Pathologist Commnt No 10/25/20 16:21 PT 14.3 Sec. (12.2-14.9) 10/30/20 15:14 INR 1.06 (0.87-1.13) 10/30/20 15:14 APTT 32.2 Sec. (24.2-36.6) 10/30/20 15:14 Heparin Anti-Xa Level 0.19 U.I./ml (0.3-0.7) L 10/31/20 14:48 Sodium 138 mmol/L (137-145) 10/31/20 06:57 Potassium 4.1 mmol/L (3.6-5.0) 10/31/20 06:57 Chloride 104.5 mmol/L (98-107) 10/31/20 06:57 Carbon Dioxide 27 mmol/L (22-30) 10/31/20 06:57 Anion Gap 11 mmol/L 10/31/20 06:57 BUN 6 mg/dL (9-20) L 10/31/20 06:57 Creatinine 0.6 mg/dL (0.8-1.3) L 10/31/20 06:57 Estimated GFR > 60 ml/min 10/31/20 06:57 BUN/Creatinine Ratio 10 % 10/31/20 06:57 Glucose 81 mg/dL (75-100) 10/31/20 06:57 POC Glucose 106 mg/dL (70-105) H 10/31/20 16:20 Hemoglobin A1c 12.5 % (4-6) H 10/25/20 16:21 Lactic Acid 0.80 mmol/L (0.7-2.0) 10/27/20 10:30 Calcium 8.8 mg/dL (8.4-10.2) 10/31/20 06:57 Magnesium 2.00 mg/dL (1.7-2.3) 10/29/20 09:57 Total Bilirubin 0.30 mg/dL (0.1-1.2) 10/31/20 06:57 AST 34 units/L (5-40) 10/31/20 06:57 ALT 58 units/L (7-56) H 10/31/20 06:57 Alkaline Phosphatase 379 units/L (35-129) H 10/31/20 06:57 Troponin T < 0.010 ng/mL (0.00-0.029) 10/27/20 10:30 C-Reactive Protein 7.30 mg/dL (0.00-1.30) H 10/29/20 09:57 NT-Pro-B Natriuret Pep 585.1 pg/mL (0-900) 10/31/20 06:57 Total Protein 6.3 g/dL (6.3-8.2) 10/31/20 06:57 Albumin 2.7 g/dL (3.9-5) L 10/31/20 06:57 Albumin/Globulin Ratio 0.8 % 10/31/20 06:57 Free T4 1.29 ng/dL (0.76-1.46) 10/27/20 18:06 Vancomycin Trough 9.5 ug/mL (5.0-20.0) 10/27/20 18:04 Microbiology: Microbiology 10/25/20 16:21 Peripheral/Venous Blood Culture - Final NO GROWTH AFTER 5 DAYS 10/25/20 16:26 Peripheral/Venous Blood Culture - Final NO GROWTH AFTER 5 DAYS Elizabeth/IV: Voiding Method Urinal Active Medications - Current Medications Current Medications: Generic Name Dose Route Start Last Admin Trade Name Freq PRN Reason Stop Dose Admin Acetaminophen 650 mg 10/29/20 10:46 Acetaminophen 325 Mg Tab PO Q6H PRN Pain, Mild (1-3) Dextrose 50 ml 10/29/20 10:49 Dextrose 50% In Water (25gm) 50 Ml Syringe IV Q30MIN PRN Hypoglycemia Protocol Famotidine 20 mg 10/29/20 11:00 10/31/20 09:41 Famotidine 20 Mg Tab PO 20 mg BID KAMERON Administration Gabapentin 100 mg 10/30/20 16:00 10/31/20 13:37 Gabapentin 100 Mg Cap PO 100 mg Q8HR KAMERON Administration Heparin Sodium (Porcine) 2,800 unit 10/30/20 14:50 10/30/20 16:28 Heparin 10,000 Units/10 Ml Vial 40 unit/kg (2800 unit) 2,800 unit IV Administration Q6H PRN Anti-Xa Assay < 0.1 units/ml Ceftriaxone Sodium 2 gm in 100 mls @ 200 mls/hr 10/29/20 02:30 10/31/20 03:26 Rocephin/Ns 2 Gm/100 Ml IV 11/04/20 02:59 200 mls/hr Q24H KAMERON Administration Protocol Vancomycin HCl 1,500 mg/ 530 mls @ 333.333 mls/hr 10/29/20 10:00 10/31/20 09:43 Sodium Chloride IV 10/31/20 23:59 333.333 mls/hr Q12H KAMERON Administration Heparin Sodium/Sodium Chloride 25,000 unit in 500 mls @ 20 mls/hr 10/30/20 15:00 10/31/20 15:43 Heparin/ 0.45% Nacl-25,000 Unit/500 Ml IV 1,250 units/hr TITR KAMERON 25 mls/hr Titration Protocol 1,000 UNITS/HR Insulin Human Lispro 5 unit 10/30/20 16:30 10/31/20 16:20 Insulin Lispro 100 Unit/Ml SUB-Q Not Given AC [facility] Insulin Human NPH 20 unit 10/30/20 17:00 10/31/20 08:12 Insulin Nph, Human 100 Unit/1 Ml SUB-Q Not Given BIDDIAB [facility] Insulin Human Regular 0 units 10/29/20 11:30 10/31/20 16:20 Insulin Regular, Human 100 Units/1 Ml SUB-Q Not Given ACHS [facility] Protocol Metoprolol Tartrate 100 mg 10/31/20 11:00 10/31/20 10:59 Metoprolol Tartrate 100 Mg Tab PO 75 mg BID KAMERON Administration Oxycodone/Acetaminophen 1 tab 10/29/20 10:18 10/31/20 03:32 Oxycodone /Acetaminophen 5-325mg Tab PO 1 tab Q6H PRN Administration Pain, Moderate (4-6) Nutrition/Malnutrition Assess - Dietary Evaluation Nutrition/Malnutrition Findings: Nutrition Notes Start: 10/26/20 12:56 Freq: Status: Active Protocol: Document 10/29/20 11:49 CW (Rec: 10/29/20 11:56 CW [id number]) Nutrition Notes Need for Assessment generated from: MD Order Initial or Follow up Assessment Current Diagnosis Diabetes Other Pertinent Diagnosis r ankle cellulitis Current Diet consistent CHO Labs/Tests BG 271 Pertinent Medications Humulin Humalog Height 5 ft 5 in Weight 69.7 kg [place] Body Weight (kg) 61.81 BMI 25.5 Weight change and time frame weight change noted; likely r/ t to edema Weight Status Appropriate Subjective/Other Information MD order for poor PO intake. Pt is eating 75% of meals and was previously evaluated by RD . Slight weight fluctuation likely related to 1+ pitting edema that is present. Fredi score of 20. Percent of energy/protein needs met: 89%/100% GI Symptoms None Skin Integrity/Comment diabetic ulcer Current % PO Good (75-100%) Minimum of two criteria No Fluid Accumulation Mild (non-severe) #1 Nutrition Diagnosis No nutrition diagnosis at this time Is patient on ventilator? No Is Patient Ambulatory and/or Out of Bed No REE-([place]-confined to bed) [phone] Calculation Used for Recommendations [facility] Additional Notes protein needs:56 - 70g (0.8 - 1g/kgBW) fluid needs: 1 ml/kcal Nutrition Intervention Change Diet Order: Continue current diet order Anticipated Discharge Needs: Consistent Carbohydrate diet Revisit per MD consult or patient Sign Off request: Additional Comments S/O pt meeting >75% of EER
[2020-11-01] MEDS: cefTRIAXone/NS 2 GM/100 ML 2 GM/100 ML BAG IV SCH (01:59)
[2020-11-01] MEDS: GABAPENTIN 100 MG CAP PO SCH ×2 (05:07→14:52)
[2020-11-01] MEDS: oxyCODONE /ACETAMINOPHEN 5-325MG TAB PO PRN (05:09)
[2020-11-01 05:54] LABS: Hematocrit 33.8 % (35.5-45.6); Hemoglobin 11.4 gm/dl (11.8-15.2)
[2020-11-01] MEDS: INSULIN REGULAR, HUMAN 100 UNITS/1 ML SUB-Q SCH ×2 (07:30→12:28)
--- NOTE | 2020-11-01 09:10 | Electrocardiograph Report ---
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
--- NOTE | 2020-11-01 09:11 | Electrocardiograph Report ---
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
[2020-11-01] MEDS ORDERED: APIXABAN 5 MG TAB PO SCH (10:00)
[2020-11-01] MEDS ORDERED: LISINOPRIL 10 MG TAB PO SCH (10:00)
[2020-11-01] MEDS: INSULIN LISPRO 100 UNIT/ML SUB-Q SCH ×3 (10:56→12:33)
[2020-11-01] MEDS: METOPROLOL TARTRATE 100 MG TAB PO SCH (11:00)
[2020-11-01] MEDS: FAMOTIDINE 20 MG TAB PO SCH (11:00)
--- NOTE | 2020-11-01 11:12 | Progress Note ---
Assessment and Plan Afib in setting of sepsis * Telemetry reviewed: A. fib 60s. No events. Continue to monitor on telemetry * Echocardiogram 10/28/2020: LVEF is 50 to 55%. LV normal size. LV SF is normal. Mild LVH. RV SF is grossly normal. Mild TR, RVSP 28 mmHg. * Continue rate control regimen metoprolol 100 mg twice daily * Anticoagulated with Eliquis 5 mg twice daily Sepsis secondary to right lower extremity cellulitis s/p surgical incision and drainage * Infectious diseases currently following Uncontrolled diabetes mellitus * Management per primary team DVT prophylaxis * Eliquis Patient currently in stable cardiac status. Patient may discharge from cardiology standpoint. I spoke with the patient regarding discharge diagnosis and follow-up directions extensively through educational interpreter services, specifically new diagnosis of atrial fibrillation and new medication regimen of Eliquis including potential risks and benefits. Environmental Health And Safety Leader #[id number]. Patient should follow-up with Dr. Cordova, [facility] heart specialists in our [place] office on 11/25/2020 at 1 PM. #[phone] This patient was seen in conjunction with Dr Read who agrees with this assessment and plan of care - Patient Problems (1) Sepsis Status: Acute (2) Abscess of right foot Status: Acute (3) Cellulitis of right foot Status: Acute (4) DVT prophylaxis Status: Acute (5) T2DM (type 2 diabetes mellitus) Status: Chronic (6) Atrial flutter Status: Acute Subjective Date of service: 11/01/20 Principal diagnosis: Atrial Flutter, sepsis Interval history: Patient resting comfortably in bed. No shortness of breath or chest pain overnight. Telemetry reviewed: A. fib 60s with no events. Objective Last Vital Signs Temp 97.4 F L 11/01/20 07:33 Pulse 69 11/01/20 11:01 Resp 18 11/01/20 07:33 BP 107/61 11/01/20 11:01 Pulse Ox 98 11/01/20 07:33 - Physical Examination General: No Apparent Distress HEENT: Positive: EOMI, Normocephaly Neck: Positive: neck supple, trachea midline Cardiac: Positive: irregularly irregular, S1/S2 Lungs: Positive: Normal Exam, Normal Breath Sounds Neuro: Positive: Grossly Intact Abdomen: Positive: Soft. Negative: Tender Skin: Positive: Wound (R foot bandage in place). Negative: Rash Musculoskeletal: No Pain Extremities: Present: lower extr. pulses, edema (RLE) - Labs and Meds CBC 11/01/20 Range/Units 04:56 Hgb 11.4 L (11.8-15.2) gm/dl Hct 33.8 L (35.5-45.6) % Plt Count 297 (140-440) K/mm3 - Imaging and Cardiology EKG: report reviewed, image reviewed Echo: report reviewed - Telemetry EKG Rhythm: Atrial Fibrillation - EKG Sinus rhythms and dysrhythmias: sinus tachycardia
[2020-11-01] MEDS: INSULIN NPH, HUMAN 100 UNIT/1 ML SUB-Q SCH (11:33)
[2020-11-01 12:07] VITALS: BP 135/63
--- NOTE | 2020-11-01 12:53 | Discharge Summary ---
Providers - Providers Date of Admission: 10/25/20 18:00 Attending physician: BOONE GHOSH MD 10/25/20 22:49 Consult to Physician [CONS] Routine Comment: Consulting Provider: ALBERT CHATTERJEE Physician Instructions: Reason For Exam: Rt foot ulcer 10/26/20 07:18 Consult to Dietitian/Nutrition [CONS] Routine Physician Instructions: 1800 kcal diet for diabetes Reason For Exam: Uncontrolled diabetes Reason for Consult: Pt needs oral supplement 10/28/20 08:32 Consult to Physician [CONS] Routine Comment: Consulting Provider: MIKE HUGHES Physician Instructions: Reason For Exam: ankle cellulitis/sepsis 10/28/20 14:21 Consult to Physician [CONS] Routine Comment: Consulting Provider: ALAN BOOKER Physician Instructions: Reason For Exam: Tachycardia 10/29/20 10:49 Consult to Dietitian/Nutrition [CONS] Routine Physician Instructions: Reason For Exam: Reason for Consult: Poor oral intake 10/31/20 10:24 Consult to Physician [CONS] Routine Comment: Consulting Provider: AIDAN MARTINEZ Physician Instructions: Reason For Exam: PAD,dm, foot abscess Primary care physician: [employer] Hospitalization Reason for admission: ankle Condition: Stable Hospital course: 55-year-old male with history of diabetes noncompliance has been having 3 weeks swelling of the right ankle and the heel with small amount of drainage on the medial part of the right ankle. Also redness on the right ankle and painful. Patient has not been taking any medications for his diabetes. Poor historian and language barrier present. No fever or chills. Pain is about 6 on a scale of 1-10. 10/27/2020: Patient has no fever and leukocytosis progressively improving on antibiotics. However he has significant sinus tachycardia about 150. EKG confirms sinus tachycardia without acute ST/T changes. Troponin normal. BP okay. He is not hypoxic. 97% on room air. Lactic acid normal. Not acidotic. CBC and CMP unremarkable. Is mentating well. Does not appear toxic. Not in significant pain currently. Patient did undergo I&D and abscess drainage yesterday. There is serosanguineous drainage from the abscess opening. There is still significant swelling and erythema around it. Has good glycemic control currently. MRI showed abscess but no osteomyelitis. Patient denies chest pains, palpitations or dyspnea. Sinus tach and appears to be physiological to infection/abscess. May need further debridement/drainage. Blood cultures negative to date. Surgical cultures were likely sent but not updated yet. Will obtain treated for, lower extremity ultrasound for DVT and give 1 L normal saline bolus. Is currently receiving normal saline 100 mL/h maintenance dose. Discussed with the nursing staff. 10/28/20 Patient is feeling better and really does not have much complaints. Swelling, erythema and drainage from the abscess at right ankle all improving. Pain is better. Afebrile with resolving leukocytosis on antibiotics. Blood cultures negative to date. No report on the surgical consults yet. ID consulted, Unasyn changed to Rocephin.Continue Vanco. Acceptable glycemic control. Persistently tachycardic at 150, possible atrial tach vs SVT/AF, on po caedizem. Echo ok. Cardiology consulted,transferring to [facility] for cardizem drip. Denies chest, palp,dyspnea. 10/29/2020: Patient remains afebrile. Wound opening below right medial malleolus is not draining much. Surrounding swelling and erythema improving. Leukocytosis resolved. Hemodynamically stable. Persistent atrial tachycardia with possible intermittent atrial flutter unresponsive to Cardizem drip. Cardiology is planning to start amiodarone infusion today. 10/30/2020: Patient was started on amiodarone yesterday evening with significant improvement of heart rate and revealing the underlying rhythm of atrial flutter and atrial fibrillation. However, amiodarone was discontinued early this morning with heart rate in 90s. A. fib with RVR recurred several hours later and amiodarone resumed in a.m. heart rate brought under control. Patient remains afebrile. He has some pain in the right ankle but not significantly. The abscess is not draining much. Swelling and erythema better. Right pedal pulses diminished with Doppler, will order arterial Doppler study. Will start Eliquis for now. 10/31/2020: Patient remains on amiodarone infusion continue A. fib, rate controlled. Hemodynamically stable. Afebrile. Swelling and erythema at ankle improving. No drainage from abscess. Cardio recommends changing amiodarone to high-dose beta-antonio, Lopressor 100 mg twice daily and changing heparin infusion to Eliquis. The patient will qualify for free Eliquis supply based on his income status. Will transfer back to floor. (1) sepsis with abscess and cellulitis of right foot, rule out septic arthritis of ankle Current Visit: Yes Status: Acute Plan to address problem: Right ankle swollen with drainage on the medial aspect Surgical consult requested and I/D to perform this afternoon. X-ray of the foot and ankle not helpful s/p abscess I&D draining purulence IV Unasyn and vancomycin initiated, Unasyn later changed to Rocephin by ID. Cultures from I/D negative to date. 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 Patient initiated on insulin coverage for now Diabetes education Patient to be initiated on insulin 70/30 twice a day with high-dose sliding scale coverage (3) atrial flutter/A. fib with RVR Did not respond to p.o./IV diltiazem but controlled with amiodarone. Changed to beta-antonio by cardiology on 10/31 Cardiology recommends changing heparin infusion to beta-antonio (4) diminished pedal pulses by palpation Arterial duplex study ordered and vascular surgery consult requested. (5) diabetic neuropathy Started Neurontin VT prophylaxis Current Visit: Yes Status: Acute Plan to address problem: On heparin and GI prophylaxis d/w pt and RN 11/01: Patient clinically stable, no acute distress. He is off amiodarone, infusion and atrial fibrillation rate is controlled, in 90s. BP normal. Patient doing chest pains, palpitations or dyspnea. No lightheadedness. Patient remains afebrile. Pain in the right ankle is better controlled with adding Neurontin. No significant drainage from abscess. Swelling and erythema better. Tire Assembler saw the patient and partly as noted below. Afib in setting of sepsis * Telemetry reviewed: A. fib 60s. No events. Continue to monitor on telemetry * Echocardiogram 10/28/2020: LVEF is 50 to 55%. LV normal size. LV SF is normal. Mild LVH. RV SF is grossly normal. Mild TR, RVSP 28 mmHg. * Continue rate control regimen metoprolol 100 mg twice daily * Anticoagulated with Eliquis 5 mg twice daily Patient currently in stable cardiac status. Patient may discharge from cardiology standpoint. We will continue to follow while inpatient Patient should follow-up with Dr. Booker, [facility] heart specialists in our [place] office on 11/25/2020 at 1 PM. #[id number] This patient was seen in conjunction with Dr Read who agrees with this assessment and plan of care follow with wound care discussed with the his manager intensive care unit. Disposition: [id number]/TX-06 HOME UNDER HOME HLTH Final Discharge Diagnosis (Prints w/discharge instructions): sepsis Time spent for discharge: 35 mins Core Measure Documentation - Palliative Care Palliative Care/ Comfort Measures: Not Applicable - Core Measures Any of the following diagnoses?: none Exam - Physical Exam Narrative exam: General appearance: Present: no acute distress - EENT Eyes: Present: PERRL, EOM intact. Absent: scleral icterus, conjunctival injection ENT: clear oral mucosa - Neck Neck: Present: supple, other (No JVD) - Respiratory Respiratory effort: normal Respiratory: bilateral: CTA - Cardiovascular Rhythm: other (A. fib, rate controlled) - Extremities Extremities: No edema Extremity abnormal: other (Edema improving and erythema around right medial ankle much better, dressing) Peripheral Pulses: abnormal (Pedal pulses diminished.) - Abdominal General gastrointestinal: soft, non-tender, non-distended, normal bowel sounds - Integumentary Integumentary: Absent: rash - Psychiatric Psychiatric: appropriate mood/affect - Constitutional Vitals: Temp Pulse Resp BP Pulse Ox 97.3 F L 72 18 135/63 98 11/01/20 11:51 11/01/20 12:26 11/01/20 11:51 11/01/20 11:51 11/01/20 11:51 Plan Activity: advance as tolerated, fall precautions Diet: low salt, diabetic Wound: per your surgeon's advice, per wound nurse instructions Special Instructions: record daily weights, record daily BP diary, record blood sugar diary Follow up with: AIDAN MARTINEZ MD [Staff Physician] - 7 Days MIKE HUGHES MD [Staff Physician] - 7 Days PRIMARY MD KACIE [Primary Care Provider] - 7 Days JESUS READ MD [Staff Physician] - 11/25/20 1:00 pm Prescriptions: Amoxicillin/K Clav Tab [Augmentin 875MG TAB] 1 each PO Q12HR #12 tablet Sulfamethoxazole/Trimethoprim [Bactrim DS TAB] 1 each PO Q12HR #12 tablet Apixaban [Eliquis] 5 mg PO Q12HR #60 tablet Gabapentin 100 mg PO Q8HR #90 capsule Insulin Regular, Human [HumuLIN R] 0 unit SQ AC #1 vial Metoprolol [Lopressor TAB] 100 mg PO BID #60 tablet Insulin NPH, Human [NovoLIN N] 20 unit SUB-Q BIDDIAB #10 ml Famotidine [Pepcid] 20 mg PO BID #60 tablet lisinopriL [Zestril TAB] 10 mg PO QDAY #30 tablet Other Discharge Orders: Glucometer (Amb) Location: None Selected Glucometer supplies[Amb] Location: None Selected
[2020-11-01] MEDS ORDERED: AMOXICILLIN/K CLAV 875/125MG TAB PO SCH (22:00)
[2020-11-01] MEDS ORDERED: SULFAMETHOXAZOLE/TRIMETHOPRIM 800/160MG DS TAB PO SCH (22:00)
== END 2020-11-01 15:18 | disposition home health service (06) | DRG 872 ==
LOC: ED 15:24 → 3A 18:00 → 3B 10-26 00:01 → 3B-SURG 10-26 00:58 → IMCU 10-29 01:41 → 4A 11-01 05:42
PROVIDERS: ADMIT Internal Medicine; ATTEND Internal Medicine
PROC: 0Y9M0ZZ Drainage of Right Foot, Open Approach (ICD-10-PCS; principal; 2020-10-26)
DX: A41.9 Sepsis, unspecified organism (principal); L03.115 Cellulitis of right lower limb; L02.611 Cutaneous abscess of right foot; I47.1 Supraventricular tachycardia; I48.92 Unspecified atrial flutter; E87.1 Hypo-osmolality and hyponatremia; M00.9 Pyogenic arthritis, unspecified; E11.628 Type 2 diabetes mellitus with other skin complications; E11.65 Type 2 diabetes mellitus with hyperglycemia; E86.0 Dehydration; Z91.19 Patient's noncompliance with other medical treatment and regimen; E11.40 Type 2 diabetes mellitus with diabetic neuropathy, unspecified
CPT/HCPCS: 36415; 71045; 80053; 80202; 82140; 82962; 83036; 83735; 83880; 84439; 84484; 85007; 85014; 85018; 85025; 85049; 85520; 85610; 85730; 86140; 87040; 87116; 93005; 93306; 93922; 93925; 93970; 96365; G0378; A9575; J0282; J0295; J0692; J0696; J1170; J1644; J1650; J1815; J2270; J2405; J3010; J3370; J7030; J7040; J7050; J7060

== ENCOUNTER 2020-11-16 12:14 | Inpatient (IN) | payer SELFPAY ==
[2020-11-16] MEDS ORDERED: SODIUM CHLORIDE 0.9% 500 ML 500 ML IV ONE (13:31)
--- NOTE | 2020-11-16 13:39 | Event Note ---
ED Screening Note Date of service: 11/16/20 Time: 13:37 ED Screening Note: Patient presented to the ER today with complaints of worsening left foot and ankle pain and pus drainage from his chronic wound. Patient states that he was hospitalized here for his wound about 2 weeks ago. He claimed that he was not prescribed any antibiotics at discharge He has not followed up with his primary care doctor or any doctor since he was discharged from the hospital Patient has a heart rate in the 157, given that there is an obvious source source of infection on exam, and his elevated heart rate, code sepsis was called and sepsis protocol was initiated This initial assessment/diagnostic orders/clinical plan/treatment(s) is/are subject to change based on patients health status, clinical progression and re- assessment by fellow clinical providers in the ED. Further treatment and workup at subsequent clinical providers discretion. Patient/guardian urged not to elope from the ED as their condition may be serious if not clinically assessed and managed. Initial orders include: Sepsis order set
--- NOTE | 2020-11-16 14:38 | XRay Report ---
CHEST 1 VIEW INDICATION: Post drainage/infection. COMPARISON: None FINDINGS: Support devices: None. Heart: Within normal limits. Lungs/Pleura: No acute air space or interstitial disease. Additional findings: None. IMPRESSION: No acute findings. RIGHT ANKLE 3 VIEWS INDICATION: Post drainage/infection. COMPARISON: None. IMPRESSION: There is moderate soft tissue swelling. No acute osseous abnormality or significant dilma nt pathology is demonstrated. Small plantar spur is noted. RIGHT FOOT 3 VIEWS INDICATION: Post drainage/infection. COMPARISON: None. IMPRESSION: There is mild diffuse soft tissue swelling. No acute osseous abnormality or significant joint pathology is demonstrated. Signer Name: Geoffrey Christensen Jr, MD Signed: 11/16/2020 2:34 PM Workstation Name: [id number]
[2020-11-16 14:59] LABS: Basophils # (Auto) 0.1 K/mm3 (0.0-0.1); Basophils % (Auto) 0.7 % (0.0-1.8); Eosinophils # (Auto) 0.1 K/mm3 (0.0-0.4); Hematocrit 41.5 % (35.5-45.6); Hemoglobin 14.3 gm/dl (11.8-15.2); Lymphocytes # (Auto) 1.2 K/mm3 (1.2-5.4); Lymphocytes % (Auto) 13.1 % (13.4-35.0); Mean Corpuscular HGB Conc 34 % (32-34); Mean Corpuscular Volume 90 fl (84-94); Monocytes # (Auto) 0.4 K/mm3 (0.0-0.8); Monocytes % (Auto) 4.1 % (0.0-7.3); Platelet Count 186 K/mm3 (140-440); Red Blood Count 4.61 M/mm3 (3.65-5.03); Red Cell Distribution Width 13.6 % (13.2-15.2)
[2020-11-16 15:21] LABS: INR 1.06 (0.87-1.13)
[2020-11-16 15:48] LABS: Alanine Aminotransferase 28 units/L (7-56); Albumin 3.9 g/dL (3.9-5); BUN/Creatinine Ratio 15; Blood Urea Nitrogen 17 mg/dL (9-20); Calcium 9.8 mg/dL (8.4-10.2); Hemolysis Index 41
[2020-11-16] MEDS ORDERED: SODIUM CHLORIDE 0.9% 1000 ML 1,000 ML ONE (18:18)
[2020-11-16] MEDS ORDERED: VANCOMYCIN 1,250 MG in SODIUM CHLORIDE 0.9% 250ML 250 ML IV ONE (22:24)
[2020-11-16] MEDS ORDERED: PIPERACIL/TAZOBACTA 4.5/NS 100 4.5 GM/100 ML VIAL IV ONE (22:24)
[2020-11-16] MEDS ORDERED: SODIUM CHLORIDE 0.9% 1000 ML IV SOLN IV ONE (22:24)
--- NOTE | 2020-11-16 22:30 | Emergency Department Report ---
ED General Adult HPI - General Chief complaint: Extremity Injury, Lower Stated complaint: LEG PAIN PUI?: No Time Seen by Provider: 11/16/20 22:10 Source: patient Mode of arrival: Ambulatory Limitations: Language Barrier - History of Present Illness Initial comments: Patient is a 55-year-old male who presents emergency room with complaints of right foot and right heel pain. Patient states it started 3 weeks ago. Patient states is worsening. Patient states that there was pus coming out of a hole in the bottom of his foot. Patient states that the redness on his heel is spreading up his ankle. Patient denies fever and chills. Patient states the pain is a 5 out of 10. Patient states the pain is worse with walking and m ovement. Patient states the pain is better with rest and remaining still. Patient states he has a history of diabetes, hypertension and hyperlipidemia and is not compliant with any medication. Patient did not take anything for diabetes at this time. Patient denies recent travel. Patient denies recent international travel. Patient denies exposure to the novel coronavirus. Patient denies sick contacts. Patient denies fever and chills. Patient denies cough. Patient denies diarrhea. Patient denies coming in contact with anybody with symptoms of the novel coronavirus. Patient states he has not been vaccinated for COVID-19. -: Sudden Severity scale (0 -10): 5 Quality: burning, stabbing Consistency: constant Improves with: rest Worsens with: movement Associated Symptoms: denies: confusion, chest pain, cough, diaphoresis, fever/chills, headaches, loss of appetite, malaise, nausea/vomiting, rash, seizure, shortness of breath, syncope, weakness Treatments Prior to Arrival: none - Related Data Previous Rx's Medication Instructions Recorded Last Taken Type Amoxicillin/K Clav Tab [Augmentin 1 each PO Q12HR #12 tablet 11/01/20 Unknown Rx 875MG TAB] Apixaban [Eliquis] 5 mg PO Q12HR #60 tablet 11/01/20 Unknown Rx Famotidine [Pepcid] 20 mg PO BID #60 tablet 11/01/20 Unknown Rx Gabapentin 100 mg PO Q8HR #90 capsule 11/01/20 Unknown Rx Insulin NPH, Human [NovoLIN N] 20 unit SUB-Q BIDDIAB #10 ml 11/01/20 Unknown Rx Insulin Regular, Human [HumuLIN R] 0 unit SQ AC #1 vial 11/01/20 Unknown Rx Metoprolol [Lopressor TAB] 100 mg PO BID #60 tablet 11/01/20 Unknown Rx Sulfamethoxazole/Trimethoprim 1 each PO Q12HR #12 tablet 11/01/20 Unknown Rx [Bactrim DS TAB] lisinopriL [Zestril TAB] 10 mg PO QDAY #30 tablet 11/01/20 Unknown Rx Allergies Allergy/AdvReac Type Severity Reaction Status Date / Time No Known Allergies Allergy Verified 11/16/20 13:25 ED Review of Systems ROS: Stated complaint: LEG PAIN Other details as noted in HPI Constitutional: denies: chills, fever Eyes: denies: eye pain, eye discharge, vision change ENT: denies: ear pain, throat pain Respiratory: denies: cough, shortness of breath, wheezing Cardiovascular: denies: chest pain, palpitations Endocrine: no symptoms reported Gastrointestinal: denies: abdominal pain, nausea, diarrhea Genitourinary: denies: urgency, dysuria Musculoskeletal: denies: back pain, joint swelling, arthralgia Skin: denies: rash, lesions Neurological: denies: headache, weakness, paresthesias Psychiatric: denies: anxiety, depression Hematological/Lymphatic: denies: easy bleeding, easy bruising ED Past Medical Hx - Past Medical History Previous Medical History?: Yes Hx Hypertension: Yes Hx Diabetes: Yes Additional medical history: Hyperlipidemia - Surgical History Past Surgical History?: No - Family History Family history: no significant - Social History Smoking Status: Never Smoker Substance Use Type: None - Medications Home Medications: Home Medications Medication Instructions Recorded Confirmed Last Taken Type Amoxicillin/K Clav Tab [Augmentin 1 each PO Q12HR #12 tablet 11/01/20 Unknown Rx 875MG TAB] Apixaban [Eliquis] 5 mg PO Q12HR #60 tablet 11/01/20 Unknown Rx Famotidine [Pepcid] 20 mg PO BID #60 tablet 11/01/20 Unknown Rx Gabapentin 100 mg PO Q8HR #90 capsule 11/01/20 Unknown Rx Insulin NPH, Human [NovoLIN N] 20 unit SUB-Q BIDDIAB #10 ml 11/01/20 Unknown Rx Insulin Regular, Human [HumuLIN R] 0 unit SQ AC #1 vial 11/01/20 Unknown Rx Metoprolol [Lopressor TAB] 100 mg PO BID #60 tablet 11/01/20 Unknown Rx Sulfamethoxazole/Trimethoprim 1 each PO Q12HR #12 tablet 11/01/20 Unknown Rx [Bactrim DS TAB] lisinopriL [Zestril TAB] 10 mg PO QDAY #30 tablet 11/01/20 Unknown Rx ED Physical Exam - General Limitations: Language Barrier General appearance: alert, in no apparent distress - Head Head exam: Present: atraumatic, normocephalic - Eye Eye exam: Present: normal appearance - ENT ENT exam: Present: mucous membranes moist - Neck Neck exam: Present: normal inspection - Respiratory Respiratory exam: Present: normal lung sounds bilaterally. Absent: respiratory distress, wheezes, rales - Cardiovascular Cardiovascular Exam: Present: regular rate, normal rhythm. Absent: systolic murmur, diastolic murmur, rubs, gallop - GI/Abdominal GI/Abdominal exam: Present: soft, normal bowel sounds. Absent: distended, tenderness, guarding - Rectal Rectal exam: Present: deferred - Extremities Exam Extremities exam: Present: normal inspection (Except for left foot.), pedal edema (On left side), other (Left heel swelling with 2 open ulcerations and purulent discharge. Redness noted.). Absent: calf tenderness - Back Exam Back exam: Present: normal inspection - Neurological Exam Neurological exam: Present: alert, oriented X3 - Psychiatric Psychiatric exam: Present: normal affect, normal mood - Skin Skin exam: Present: warm, dry, normal color. Absent: rash ED Course Vital Signs 11/16/20 11/16/20 11/16/20 13:29 18:04 18:05 Temperature 98.1 F Pulse Rate 156 H 99 H Respiratory 20 32 H Rate Blood Pressure 111/82 Blood Pressure 158/94 [Right] O2 Sat by Pulse 98 88 91 Oximetry 11/16/20 18:19 Temperature Pulse Rate 154 H Respiratory 20 Rate Blood Pressure 125/94 Blood Pressure [Right] O2 Sat by Pulse 100 Oximetry - Reevaluation(s) Reevaluation #1: Patient connected to the oil refinery operator. Patient found to be tachycardic. EKG has been done. Patient will be started on a sepsis protocol and given antibio tics and fluids. 11/16/20 22:27 Reevaluation #2: I discussed all results with patient. I discussed plan of care with patient. Patient agrees with plan of care and admission. Patient to be admitted to the hospitalist service. 11/16/20 23:15 - Consultations Consultation #1: Hospitalist consulted for admission. Hospitalist to admit patient. 11/16/20 23:15 ED Medical Decision Making - Lab Data Result diagrams: 11/16/20 14:39 11/16/20 14:39 - EKG Data -: EKG Interpreted by Me EKG shows normal: sinus rhythm, axis, intervals, QRS complexes, ST-T waves Rate: tachycardia - Radiology Data Radiology results: report reviewed, image reviewed interpreted by me: Chest x-ray: No pneumonia, no pneumothorax, no foreign body, no osseous findings, no acute findings Ankle/foot x-ray: No fracture, no foreign body, soft tissue swelling noted. CHEST 1 VIEW INDICATION: Post drainage/infection. COMPARISON: None FINDINGS: Support devices: None. Heart: Within normal limits. Lungs/Pleura: No acute air space or interstitial disease. Additional findings: None. IMPRESSION: No acute findings. RIGHT ANKLE 3 VIEWS INDICATION: Post drainage/infection. COMPARISON: None. IMPRESSION: There is moderate soft tissue swelling. No acute osseous abnormality or significant joint pathology is demonstrated. Small plantar spur is noted. RIGHT FOOT 3 VIEWS INDICATION: Post drainage/infection. COMPARISON: None. IMPRESSION: There is mild diffuse soft tissue swelling. No acute osseous abnormality or significant joint pathology is demonstrated. - Medical Decision Making Patient is a 55-year-old male who presents emergency room with complaints of right foot pain. Patient has history of diabetic ulcer to his right foot and noncompliance, diabetes, hypertension, hyperlipidemia. Patient on exam noted to have 2 ulcerations to his right heel with purulent discharge and a large amount of redness and cellulitis. Patient had labs done which were essentially unremarkable except for mild chemistry changes to include hyponatremia, hyperglycemia and hyperkalemia. Patient started on sepsis protocol after initial evaluation. Patient given fluids and early antibiotics. Patient's heart rate slowly improved with fluids. Patient admitted to the hospital service for further evaluation treatment and into the ICU. Critical care time documented due to the multiple reassessments, prolonged time at the bedside, interpretation of diagnostics and labs. . - Differential Diagnosis Diabetic foot, sepsis, tachycardia, right foot pain, right foot infection Critical Care Time: Yes Critical care time in (mins) excluding proc time.: 35 Critical care attestation.: If time is entered above; I have spent that time in minutes in the direct care of this critically ill patient, excluding procedure time. Critical Care Time: 35 minutes ED Disposition Clinical Impression: Tachycardia, Foot pain, right, Diabetic infection of right foot, Medical non- compliance, Abscess of right foot, Cellulitis of right foot, Hyperkalemia Sepsis Qualifiers: Sepsis type: sepsis due to unspecified organism Sepsis acute organ dysfunction status: without acute organ dysfunction Qualified Code(s): A41.9 - Sepsis, unsp ecified organism Disposition: DC-09 OP ADMIT IP TO THIS HOSP Is pt being admited?: Yes Does the pt Need Aspirin: No Condition: Critical Instructions: Diabetes Mellitus Type 2 in Adults (ED) Time of Disposition: 23:26
[2020-11-16] MEDS ORDERED: VANCOMYCIN PHARMACY TO DOSE IV SCH ×2 (23:00→23:45)
[2020-11-16] MEDS ORDERED: DEXTROSE 50% IN WATER (25GM) 50 ML SYRINGE IV PRN (23:40)
[2020-11-16] MEDS ORDERED: ONDANSETRON 4 MG/2 ML INJ IV PRN (23:40)
[2020-11-16] MEDS ORDERED: NALOXONE 0.4 MG/1 ML INJ IV PRN (23:40)
[2020-11-16] MEDS ORDERED: oxyCODONE /ACETAMINOPHEN 5-325MG TAB PO PRN (23:40)
[2020-11-16] MEDS ORDERED: HYDROmorphone 1 MG/1 ML INJ IV PRN (23:40)
[2020-11-16] MEDS ORDERED: ACETAMINOPHEN 325 MG TAB PO PRN (23:40)
[2020-11-17] MEDS: METOPROLOL TARTRATE 50 MG TAB PO SCH ×2 (00:10→11:55)
[2020-11-17] MEDS ORDERED: INSULIN LISPRO 100 UNIT/ML SUB-Q ONE (00:35)
[2020-11-17] MEDS: AMPICILLIN/SULBACTA 1.5GM/50ML 1.5 GM/50 ML BAG IV SCH ×4 (00:42→17:41)
--- NOTE | 2020-11-17 00:47 | History and Physical Report ---
History of Present Illness Date of examination: 11/16/20 Date of admission: 11/16/20 23:13 Chief complaint: rt foot pain and swelling History of present illness: 55-year-old male with history of hypertension, insulin-dependent diabetes mellitus, HLD, and recently diagnosed with paroxysmal atrial fibrillation on Eliquis who presents [facility] with complaints of right foot and right heel pain. Patient is a poor historian and only able to provide limited h istory. Of note patient was admitted with similar complaints on 10/25, and treated for sepsis secondary to right foot abscess and cellulitis,s/p surgical I&D, course complicated by development of atrial fibrillation in the setting of sepsis, and started on Eliquis with scheduled outpatient follow-up with cardiology. He was discharged on 11/01. Patient states that he is experiencing worsening right foot and heel pain for the past couple of days. Additionally he has a hole in the bottom of his foot and pus is coming out of it. He is noncompliant with meds. Denies fever, chills, cough, chest pain, palpitation, shortness of breath, headache, abdominal pain, recent fall/injury, recent sick exposure Past History Past Medical History: atrial fib, diabetes, hypertension, hyperlipidemia, other (Noncompliant with meds) Past Surgical History: Other (s/p I & D 10/2020) Social history: single, full code. denies: smoking, alcohol abuse, prescription drug abuse, IV drug use Family history: no significant family history Medications and Allergies Allergies Allergy/AdvReac Type Severity Reaction Status Date / Time No Known Allergies Allergy Verified 11/16/20 13:25 Home Medications Medication Instructions Recorded Confirmed Last Taken Type Amoxicillin/K Clav Tab [Augmentin 1 each PO Q12HR #12 tablet 11/01/20 Unknown Rx 875MG TAB] Apixaban [Eliquis] 5 mg PO Q12HR #60 tablet 11/01/20 Unknown Rx Famotidine [Pepcid] 20 mg PO BID #60 tablet 11/01/20 Unknown Rx Gabapentin 100 mg PO Q8HR #90 capsule 11/01/20 Unknown Rx Insulin NPH, Human [NovoLIN N] 20 unit SUB-Q BIDDIAB #10 ml 11/01/20 Unknown Rx Insulin Regular, Human [HumuLIN R] 0 unit SQ AC #1 vial 07/20/21 Unknown Rx Metoprolol [Lopressor TAB] 100 mg PO BID #60 tablet 11/01/20 Unknown Rx Sulfamethoxazole/Trimethoprim 1 each PO Q12HR #12 tablet 11/01/20 Unknown Rx [Bactrim DS TAB] lisinopriL [Zestril TAB] 10 mg PO QDAY #30 tablet 11/01/20 Unknown Rx Active Meds: Active Medications Acetaminophen (Acetaminophen 325 Mg Tab) 650 mg PO Q4H PRN PRN Reason: Pain MILD(1-3)/Fever >100.5/LONG Apixaban (Apixaban 5 Mg Tab) 5 mg PO Q12HR [facility] Dextrose (Dextrose 50% In Water (25gm) 50 Ml Syringe) 50 ml IV Q30MIN PRN; Protocol PRN Reason: Hypoglycemia Docusate Sodium (Docusate Sodium 100 Mg Cap) 100 mg PO BID [facility] Famotidine (Famotidine 20 Mg Tab) 20 mg PO BID [facility] Hydromorphone HCl (Hydromorphone 1 Mg/1 Ml Inj) 0.5 mg IV Q3H PRN PRN Reason: Pain , Severe (7-10) Ampicillin Sodium/Sulbactam Sodium (Unasyn/Ns 1.5 Gm/50 Ml) 1.5 gm in 50 mls @ 100 mls/hr IV Q6H [facility]; Protocol Vancomycin HCl (Vancomycin/Ns 1 Gm/250 Ml) 1 gm in 250 mls @ 166.667 mls/hr IV Q12H [facility] Insulin Glargine (Insulin Glargine 100 Units/Ml) 10 units SUB-Q QAMDIAB [facility] Insulin Human Lispro (Insulin Lispro 100 Unit/Ml) 0 unit SUB-Q ACHS [facility]; Protocol Metoprolol Tartrate (Metoprolol Tartrate 50 Mg Tab) 50 mg PO BID [facility] Last Admin: 11/17/20 00:10 Dose: 50 mg Documented by: Naloxone HCl (Naloxone 0.4 Mg/1 Ml Inj) 0.1 mg IV Q2MIN PRN PRN Reason: Res Rate </= 8 or 02 SAT < 92% Ondansetron HCl (Ondansetron 4 Mg/2 Ml Inj) 4 mg IV Q6H PRN PRN Reason: Nausea And Vomiting Oxycodone/Acetaminophen (Oxycodone /Acetaminophen 5-325mg Tab) 1 tab PO Q6H PRN PRN Reason: Pain, Moderate (4-6) Sodium Chloride (Sodium Chloride 0.9% 10 Ml Flush Syringe) 10 ml IV BID KAMERON Sodium Chloride (Sodium Chloride 0.9% 10 Ml Flush Syringe) 10 ml IV PRN PRN PRN Reason: LINE FLUSH Review of Systems All systems: negative (As noted in HPI) Exam - Physical Exam Narrative exam: Physical exam General appearance: Present: No acute distress, alert and oriented 3, adult male - EENT Eyes: Present: PERRL, EOM intact ENT: hearing intact, missing teeth - Neck Neck: Present: supple, normal ROM - Respiratory Respiratory effort: Non-labored Respiratory: Clear throughout - Cardiovascular Heart rate: 150 (bpm) Rhythm: Sinus tachycardia Heart Sounds: Present: S1 & S2. Absent: rub, click - Extremities Extremities: no ischemia, pulses intact, right: Erythema, foot pedal edema, heel swelling with 2 open ulcerations and purulent drainage - Peripheral Assessment Peripheral Pulses: within normal limits - Abdominal General gastrointestinal: soft, non-tender, normal bowel sounds - Integumentary Integumentary: Present: warm, dry - Musculoskeletal Musculoskeletal: Able to move all extremities -Neurological Neurological: CN II-XII intact - Psychiatric Psychiatric: cooperative - Constitutional Vitals: Temp Pulse Resp BP Pulse Ox 98.1 F 150 H 13 126/80 98 11/16/20 13:29 11/17/20 00:15 11/17/20 00:15 11/17/20 00:15 11/17/20 00:15 Results - Labs CBC & Chem 7: 11/16/20 14:39 11/16/20 14:39 Labs: Laboratory Last Values WBC 9.2 K/mm3 (4.5-11.0) 11/16/20 14:39 RBC 4.61 M/mm3 (3.65-5.03) 11/16/20 14:39 Hgb 14.3 gm/dl (11.8-15.2) 11/16/20 14:39 Hct 41.5 % (35.5-45.6) 11/16/20 14:39 MCV 90 fl (84-94) 11/16/20 14:39 MCH 31 pg (28-32) 11/16/20 14:39 MCHC 34 % (32-34) 11/16/20 14:39 RDW 13.6 % (13.2-15.2) 11/16/20 14:39 Plt Count 186 K/mm3 (140-440) 11/16/20 14:39 Lymph % (Auto) 13.1 % (13.4-35.0) L 11/16/20 14:39 [place] % (Auto) 4.1 % (0.0-7.3) 11/16/20 14:39 Eos % (Auto) 1.0 % (0.0-4.3) 11/16/20 14:39 Baso % (Auto) 0.7 % (0.0-1.8) 11/16/20 14:39 Lymph # (Auto) 1.2 K/mm3 (1.2-5.4) 11/16/20 14:39 [place] # (Auto) 0.4 K/mm3 (0.0-0.8) 11/16/20 14:39 Eos # (Auto) 0.1 K/mm3 (0.0-0.4) 11/16/20 14:39 Baso # (Auto) 0.1 K/mm3 (0.0-0.1) 11/16/20 14:39 Seg Neutrophils % 81.1 % (40.0-70.0) H 11/16/20 14:39 Seg Neutrophils # 7.4 K/mm3 (1.8-7.7) 11/16/20 14:39 PT 14.3 Sec. (12.2-14.9) 11/16/20 14:39 INR 1.06 (0.87-1.13) 11/16/20 14:39 VBG pH 7.413 (7.320-7.420) 11/16/20 14:39 Sodium 131 mmol/L (137-145) L 11/16/20 14:39 Potassium 5.3 mmol/L (3.6-5.0) H 11/16/20 14:39 Chloride 97.2 mmol/L (98-107) L 11/16/20 14:39 Carbon Dioxide 22 mmol/L (22-30) 11/16/20 14:39 Anion Gap 17 mmol/L 11/16/20 14:39 BUN 17 mg/dL (9-20) 11/16/20 14:39 Creatinine 1.1 mg/dL (0.8-1.3) 11/16/20 14:39 Estimated GFR > 60 ml/min 11/16/20 14:39 BUN/Creatinine Ratio 15 % 11/16/20 14:39 Glucose 330 mg/dL (75-100) H 11/16/20 14:39 POC Glucose 335 mg/dL (70-105) H 11/16/20 13:37 Lactic Acid 1.30 mmol/L (0.7-2.0) 11/16/20 14:39 Calcium 9.8 mg/dL (8.4-10.2) 11/16/20 14:39 Total Bilirubin 0.50 mg/dL (0.1-1.2) 11/16/20 14:39 AST 15 units/L (5-40) 11/16/20 14:39 ALT 28 units/L (7-56) 11/16/20 14:39 Alkaline Phosphatase 169 units/L (35-129) H 11/16/20 14:39 Total Protein 7.8 g/dL (6.3-8.2) 11/16/20 14:39 Albumin 3.9 g/dL (3.9-5) 11/16/20 14:39 Albumin/Globulin Ratio 1.0 % 11/16/20 14:39 Microbiology: Microbiology 11/16/20 14:39 Peripheral/Venous Blood Culture - Preliminary Culture in Progress 11/16/20 14:39 Peripheral/Venous Blood Culture - Preliminary Culture in Progress - Imaging and Cardiology Imaging and Cardiology: CXR: FINDINGS: Support devices: None. Heart: Within normal limits. Lungs/Pleura: No acute air space or interstitial disease. Additional findings: None. IMPRESSION: No acute findings. Rt Foot XR:COMPARISON: None. IMPRESSION: There is mild diffuse soft tissue swelling. No acute osseous abnormality or significant joint pathology is demonstrated. Assessment and Plan Assessment and plan: Right foot abscess and cellulitis -Status post surgical I&D (10/2020) -Previously treated with IV ABX and transitioned to oral ABX -MRI on 11/03 showed abscess but no osteomyelitis -Right foot x-ray reveals mild diffuse soft tissue swelling. No acute osseous abnormality or significant joint pathology is demonstrated. -Cultures pending -Start IV Unasyn and vancomycin -Wound care consult -Surgical consult pending Insulin-dependent diabetes mellitus -Uncontrolled with A1c>12.0 -POC BG monitoring -Schedule Lantus and sliding scale coverage -Patient may benefit from diabetic education, nutrition consult pending Recently diagnosed with paroxysmal atrial fibrillation -Currently sinus tachycardia at 154 bpm -Continue Eliquis 5 mg twice daily -Previously evaluated by [facility] with scheduled outpatient appointment with Dr. Cordova on 11/25/20 -On beta-antonio -On continuous remote telemetry monitoring Hyperkalemia -Mild at 5.3 -Receiving IVF -Monitor HTN -Monitor BP -Resume home hypertensive meds DVT and GI PPX -On Eliquis and Pepcid Advance Directives: No VTE prophylaxis?: Chemical, Mechanical Plan of care discussed with patient/family: Yes
[2020-11-17 02:38] LABS: Bilirubin,Urine NEG (Negative); Blood,Urine NEG (Negative); Color,Urine Yellow (Yellow); Mucus,Urine FEW /HPF; Protein,Urine <15 mg/dL mg/dL (Negative); Urobilinogen,Urine < 2.0 mg/dL (<2.0); WBC,Urine < 1.0 /HPF (0.0-6.0)
[2020-11-17] MEDS ORDERED: SODIUM CHLORIDE 0.9% 1000 ML 1,000 ML IV ONE (09:41)
[2020-11-17] MEDS ORDERED: NON-FORMULARY EACH (Apixaban 5 MG Tablet) PO SCH (10:00)
[2020-11-17] MEDS: INSULIN GLARGINE 100 UNITS/ML SUB-Q SCH (10:08)
[2020-11-17] MEDS: INSULIN LISPRO 100 UNIT/ML SUB-Q SCH ×4 (10:08→22:20)
--- NOTE | 2020-11-17 11:08 | Electrocardiograph Report ---
[facility] Test Date: 2020-11-16 Test Time: 13:41:58 Pat Name: PATRICIA PATTERSON Department: Room: [facility] Gender: M Adhesive Sprayer: JESSICA : 1965 Requested By: ED DOC Order Number: [id number] Reading MD: Rita Hawthorne Measurements Intervals [place] Rate: 152 P: 101 OK: 103 QRS: 163 QRSD: 82 T: -76 QT: 341 QTc: 542 Interpretive Statements Atrial flutter with 2-1 AV conduction Compared to ECG 10/29/2020 07:40:02 No significant change Electronically Signed On 11-17-2020 11:08:39 EDT by Rita Hawthorne
[2020-11-17] MEDS: DOCUSATE SODIUM 100 MG CAP PO SCH ×2 (11:55→22:09)
[2020-11-17] MEDS: APIXABAN 5 MG TAB PO SCH ×2 (11:55→22:09)
[2020-11-17] MEDS: FAMOTIDINE 20 MG TAB PO SCH ×2 (11:55→22:09)
[2020-11-17] MEDS: VANCOMYCIN/NS 1 GM/250 ML 1 GM/250 ML BAG IV SCH (12:39)
--- NOTE | 2020-11-17 13:06 | Progress Note ---
Assessment and Plan Assessment and plan: 55-year-old male with history of hypertension, insulin-dependent diabetes mellitus, HLD, and recently diagnosed with paroxysmal atrial fibrillation on Eliquis who presents [facility] ED with complaints of right foot and right heel pain. Patient is a poor historian and only able to provide limited history. Of note patient was admitted with similar complaints on 10/25, and treated for sepsis secondary to right foot abscess and cellulitis,s/p surgical I&D, course complicated by development of atrial fibrillation in the setting of sepsis, and started on Eliquis with scheduled outpatient follow-up with cardiology. He was discharged on 11/01. Patient states that he is experiencing worsening right foot and heel pain for the past couple of days. Additionally he has a hole in the bottom of his foot and pus is coming out of it. He is noncompliant with meds. Denies fever, chills, cough, chest pain, palpitation, shortness of breath, headache, abdominal pain, recent fall/injury, recent sick exposure 11/17: Patient has not been taking his medication due to cost. ID consulted to assist with management awaiting for wound care evaluation. We will give another liter bolus of fluid for possible tachycardia driven by sepsis. Patient does have a history of paroxysmal atrial fibrillation and is on beta-antonio which was decreased during this admission due to low blood pressure but will go back up to the normal dose. If heart rate is not controlled will obtain cardiology consultation for evaluation. We will also go ahead and get case management consultation to assist with medications on discharge. Case discussed in detail with the ID doctor and the patient plan stressed again. Right foot abscess and cellulitis -Status post surgical I&D (10/2020) -Previously treated with IV ABX and transitioned to oral ABX -MRI on 11/03 showed abscess but no osteomyelitis -Right foot x-ray reveals mild diffuse soft tissue swelling. No acute osseous abnormality or significant joint pathology is demonstrated. -Cultures pending -Start IV Unasyn and vancomycin -Wound care consult -Surgical consult pending Insulin-dependent diabetes mellitus -Uncontrolled with A1c>12.0 -POC BG monitoring -Schedule Lantus and sliding scale coverage -Patient may benefit from diabetic education, nutrition consult pending Recently diagnosed with paroxysmal atrial fibrillation -Currently sinus tachycardia at 154 bpm -Continue Eliquis 5 mg twice daily -Previously evaluated by [facility] with scheduled outpatient appointment with Dr. Cordova on 11/25/20 -On beta-antonio -On continuous remote telemetry monitoring Hyperkalemia -Mild at 5.3 -Receiving IVF -Monitor HTN -Monitor BP -Resume home hypertensive meds DVT and GI PPX -On Eliquis and Pepcid History Interval history: Patient seen and examined states that the medications were too expensive and he could not afford them. Per my discussion with the ID doctor appears patient has been going to multiple hospitals Hospitalist Physical - Physical exam Narrative exam: General appearance: Present: No acute distress, alert and oriented 3, adult male - EENT Eyes: Present: PERRL, EOM intact ENT: hearing intact, missing teeth - Neck Neck: Present: supple, normal ROM - Respiratory Respiratory effort: Non-labored Respiratory: Clear throughout - Cardiovascular Rhythm: Sinus tachycardia Heart Sounds: Present: S1 & S2. Absent: rub, click - Extremities Extremities: no ischemia, pulses intact, right: Erythema, foot pedal edema, heel swelling with 2 open ulcerations and purulent drainage - Peripheral Assessment Peripheral Pulses: within normal limits - Abdominal General gastrointestinal: soft, non-tender, normal bowel sounds - Integumentary Integumentary: Present: warm, dry - Musculoskeletal Musculoskeletal: Able to move all extremities -Neurological Neurological: CN II-XII intact - Psychiatric Psychiatric: cooperative - Constitutional Vitals: Temp Pulse Resp BP Pulse Ox 98.1 F 150 H 16 101/62 99 11/16/20 13:29 11/17/20 12:01 11/17/20 12:01 11/17/20 12:01 11/17/20 12:16 Results - Labs CBC & Chem 7: 11/16/20 14:39 11/17/20 04:41 Labs: Laboratory Last Values WBC 9.2 K/mm3 (4.5-11.0) 11/16/20 14:39 RBC 4.61 M/mm3 (3.65-5.03) 11/16/20 14:39 Hgb 14.3 gm/dl (11.8-15.2) 11/16/20 14:39 Hct 41.5 % (35.5-45.6) 11/16/20 14:39 MCV 90 fl (84-94) 11/16/20 14:39 MCH 31 pg (28-32) 11/16/20 14:39 MCHC 34 % (32-34) 11/16/20 14:39 RDW 13.6 % (13.2-15.2) 11/16/20 14:39 Plt Count 186 K/mm3 (140-440) 11/16/20 14:39 Lymph % (Auto) 13.1 % (13.4-35.0) L 11/16/20 14:39 [place] % (Auto) 4.1 % (0.0-7.3) 11/16/20 14:39 Eos % (Auto) 1.0 % (0.0-4.3) 11/16/20 14:39 Baso % (Auto) 0.7 % (0.0-1.8) 11/16/20 14:39 Lymph # (Auto) 1.2 K/mm3 (1.2-5.4) 11/16/20 14:39 [place] # (Auto) 0.4 K/mm3 (0.0-0.8) 11/16/20 14:39 Eos # (Auto) 0.1 K/mm3 (0.0-0.4) 11/16/20 14:39 Baso # (Auto) 0.1 K/mm3 (0.0-0.1) 11/16/20 14:39 Seg Neutrophils % 81.1 % (40.0-70.0) H 11/16/20 14:39 Seg Neutrophils # 7.4 K/mm3 (1.8-7.7) 11/16/20 14:39 PT 14.3 Sec. (12.2-14.9) 11/16/20 14:39 INR 1.06 (0.87-1.13) 11/16/20 14:39 VBG pH 7.413 (7.320-7.420) 11/16/20 14:39 Sodium 131 mmol/L (137-145) L 11/16/20 14:39 Potassium 4.2 mmol/L (3.6-5.0) D 11/17/20 04:41 Chloride 97.2 mmol/L (98-107) L 11/16/20 14:39 Carbon Dioxide 22 mmol/L (22-30) 11/16/20 14:39 Anion Gap 17 mmol/L 11/16/20 14:39 BUN 17 mg/dL (9-20) 11/16/20 14:39 Creatinine 1.1 mg/dL (0.8-1.3) 11/16/20 14:39 Estimated GFR > 60 ml/min 11/16/20 14:39 BUN/Creatinine Ratio 15 % 11/16/20 14:39 Glucose 330 mg/dL (75-100) H 11/16/20 14:39 POC Glucose 187 mg/dL (70-105) H 11/17/20 12:22 Hemoglobin A1c 13.3 % (4-6) H 11/16/20 14:39 Lactic Acid 1.20 mmol/L (0.7-2.0) 11/17/20 04:41 Calcium 9.8 mg/dL (8.4-10.2) 11/16/20 14:39 Total Bilirubin 0.50 mg/dL (0.1-1.2) 11/16/20 14:39 AST 15 units/L (5-40) 11/16/20 14:39 ALT 28 units/L (7-56) 11/16/20 14:39 Alkaline Phosphatase 169 units/L (35-129) H 11/16/20 14:39 Total Protein 7.8 g/dL (6.3-8.2) 11/16/20 14:39 Albumin 3.9 g/dL (3.9-5) 11/16/20 14:39 Albumin/Globulin Ratio 1.0 % 11/16/20 14:39 Urine Color Yellow (Yellow) 11/17/20 Unknown Urine Turbidity Clear (Clear) 11/17/20 Unknown Urine pH 5.0 (5.0-7.0) 11/17/20 Unknown Ur Specific [place] 1.027 (1.003-1.030) 11/17/20 Unknown Urine Protein <15 mg/dl mg/dL (Negative) 11/17/20 Unknown Urine Glucose (UA) >=500 mg/dL (Negative) 11/17/20 Unknown Urine Ketones Neg mg/dL (Negative) 11/17/20 Unknown Urine Blood Neg (Negative) 11/17/20 Unknown Urine Nitrite Neg (Negative) 11/17/20 Unknown Urine Bilirubin Neg (Negative) 11/17/20 Unknown Urine Urobilinogen < 2.0 mg/dL (<2.0) 11/17/20 Unknown Ur Leukocyte Esterase Neg (Negative) 11/17/20 Unknown Urine WBC (Auto) < 1.0 /HPF (0.0-6.0) 11/17/20 Unknown Urine RBC (Auto) 2.0 /HPF (0.0-6.0) 11/17/20 Unknown U Epithel Cells (Auto) < 1.0 /HPF (0-13.0) 11/17/20 Unknown Urine Mucus Few /HPF 11/17/20 Unknown Microbiology: Microbiology 11/16/20 14:39 Peripheral/Venous Blood Culture - Preliminary Culture in Progress 11/16/20 14:39 Peripheral/Venous Blood Culture - Preliminary Culture in Progress Active Medications - Current Medications Current Medications: Generic Name Dose Route Start Last Admin Trade Name Freq PRN Reason Stop Dose Admin Acetaminophen 650 mg 11/16/20 23:40 Acetaminophen 325 Mg Tab PO Q4H PRN Pain MILD(1-3)/Fever >100.5/LONG Apixaban 5 mg 11/17/20 10:00 11/17/20 11:55 Apixaban 5 Mg Tab PO 5 mg Q12HR KAMERON Administration Dextrose 50 ml 11/16/20 23:40 Dextrose 50% In Water (25gm) 50 Ml Syringe IV Q30MIN PRN Hypoglycemia Protocol Docusate Sodium 100 mg 11/17/20 10:00 11/17/20 11:55 Docusate Sodium 100 Mg Cap PO 100 mg BID KAMERON Administration Famotidine 20 mg 11/17/20 10:00 11/17/20 11:55 Famotidine 20 Mg Tab PO 20 mg BID KAMERON Administration Hydromorphone HCl 0.5 mg 11/16/20 23:40 Hydromorphone 1 Mg/1 Ml Inj IV Q3H PRN Pain , Severe (7-10) Ampicillin Sodium/Sulbactam Sodium 1.5 gm in 50 mls @ 100 mls/hr 11/17/20 00:00 11/17/20 11:56 Unasyn/Ns 1.5 Gm/50 Ml IV 100 mls/hr Q6H KAMERON Administration Protocol Vancomycin HCl 1 gm in 250 mls @ 166.667 mls/hr 11/17/20 12:00 11/17/20 12:39 Vancomycin/Ns 1 Gm/250 Ml IV 166.667 mls/hr Q12H KAMERON Administration Insulin Glargine 10 units 11/17/20 08:00 11/17/20 10:08 Insulin Glargine 100 Units/Ml SUB-Q 10 units QAMDIAB KAMERON Administration Insulin Human Lispro 0 unit 11/17/20 07:30 11/17/20 12:51 Insulin Lispro 100 Unit/Ml SUB-Q 2 unit ACHS KAMREON Administration Protocol Metoprolol Tartrate 50 mg 11/16/20 23:45 11/17/20 11:55 Metoprolol Tartrate 50 Mg Tab PO 50 mg BID KAMERON Administration Naloxone HCl 0.1 mg 11/16/20 23:40 Naloxone 0.4 Mg/1 Ml Inj IV Q2MIN PRN Res Rate </= 8 or 02 SAT < 92% Ondansetron HCl 4 mg 11/16/20 23:40 Ondansetron 4 Mg/2 Ml Inj IV Q6H PRN Nausea And Vomiting Oxycodone/Acetaminophen 1 tab 11/16/20 23:40 Oxycodone /Acetaminophen 5-325mg Tab PO Q6H PRN Pain, Moderate (4-6) Sodium Chloride 10 ml 11/17/20 10:00 11/17/20 09:56 Sodium Chloride 0.9% 10 Ml Flush Syringe IV Not Given BID KAMERON Sodium Chloride 10 ml 11/16/20 23:40 Sodium Chloride 0.9% 10 Ml Flush Syringe IV PRN PRN LINE FLUSH Nutrition/Malnutrition Assess - Dietary Evaluation Nutrition/Malnutrition Findings: Nutrition Notes Start: 11/17/20 07:41 Freq: Status: Active Protocol: Document 11/17/20 07:41 (Rec: 11/17/20 07:43 [id number]) Nutrition Notes Need for Assessment generated from: MD Order Initial or Follow up Brief Note Current Diagnosis Diabetes,Hypertension, Hyperlipidemia Other Pertinent Diagnosis R foot and heel pain Current Diet cardiac, consistent CHO Labs/Tests A1c 13.3 Subjective/Other Information MD consult for DM edu. Pt on hold in ED. Nutrition Intervention Follow-Up By: 11/18/20 Additional Comments F/u: diet education
[2020-11-17] MEDS ORDERED: CYCLOBENZAPRINE 10 MG TAB PO PRN (13:08)
[2020-11-17] MEDS: GABAPENTIN 100 MG CAP PO SCH ×2 (13:40→22:09)
[2020-11-17] MEDS ORDERED: dilTIAZem 25 MG/5 ML INJ IV ONE (13:44)
--- NOTE | 2020-11-17 14:10 | Consultation ---
History of Present Illness Consult date: 11/17/20 Chief complaint: right foot drainage, infection - History of present illness History of present illness: 35-year-old male with a history of diabetes who presents to the emergency room with swelling of his right foot and drainage. Patient was recently admitted to [facility] for similar complaints and found to have cellulitis of the right ankle with a small abscess. He underwent I&D of abscess of right ankle on 10/26/20 and was eventually discharged. MRI of RLE did not show additional abscess or osteomyelitis. He has hx of noncompliance with medications and poorly controlled DM. Patient states that he started to get swelling of the heel area and there was drainage from a separate area. He has been afebrile. Past History Past Medical History: atrial fib, diabetes, hypertension, hyperlipidemia, other (Noncompliant with meds) Past Surgical History: Other (s/p I & D right ankle abscess 10/26/2020) Social history: single, full code. denies: smoking, alcohol abuse, prescription drug abuse, IV drug use Family history: no significant family history Medications and Allergies Allergies Allergy/AdvReac Type Severity Reaction Status Date / Time No Known Allergies Allergy Verified 11/16/20 13:25 Home Medications Medication Instructions Recorded Confirmed Last Taken Type Amoxicillin/K Clav Tab [Augmentin 1 each PO Q12HR #12 tablet 11/01/20 Unknown Rx 875MG TAB] Apixaban [Eliquis] 5 mg PO Q12HR #60 tablet 11/01/20 Unknown Rx Famotidine [Pepcid] 20 mg PO BID #60 tablet 11/01/20 Unknown Rx Gabapentin 100 mg PO Q8HR #90 capsule 11/01/20 Unknown Rx Insulin NPH, Human [NovoLIN N] 20 unit SUB-Q BIDDIAB #10 ml 11/01/20 Unknown Rx Insulin Regular, Human [HumuLIN R] 0 unit SQ AC #1 vial 11/01/20 Unknown Rx Metoprolol [Lopressor TAB] 100 mg PO BID #60 tablet 11/01/20 Unknown Rx Sulfamethoxazole/Trimethoprim 1 each PO Q12HR #12 tablet 11/01/20 Unknown Rx [Bactrim DS TAB] lisinopriL [Zestril TAB] 10 mg PO QDAY #30 tablet 11/01/20 Unknown Rx Active Meds: Active Medications Acetaminophen (Acetaminophen 325 Mg Tab) 650 mg PO Q4H PRN PRN Reason: Pain MILD(1-3)/Fever >100.5/LONG Apixaban (Apixaban 5 Mg Tab) 5 mg PO Q12HR [facility] Last Admin: 11/17/20 11:55 Dose: 5 mg Documented by: Cyclobenzaprine HCl (Cyclobenzaprine 10 Mg Tab) 10 mg PO Q8H PRN PRN Reason: Muscle Spasm Dextrose (Dextrose 50% In Water (25gm) 50 Ml Syringe) 50 ml IV Q30MIN PRN; Protocol PRN Reason: Hypoglycemia Docusate Sodium (Docusate Sodium 100 Mg Cap) 100 mg PO BID [facility] Last Admin: 11/17/20 11:55 Dose: 100 mg Documented by: Famotidine (Famotidine 20 Mg Tab) 20 mg PO BID [facility] Last Admin: 11/17/20 11:55 Dose: 20 mg Documented by: Gabapentin (Gabapentin 100 Mg Cap) 100 mg PO Q8HR [facility] Last Admin: 11/17/20 13:40 Dose: 100 mg Documented by: Hydromorphone HCl (Hydromorphone 1 Mg/1 Ml Inj) 0.5 mg IV Q3H PRN PRN Reason: Pain , Severe (7-10) Ampicillin Sodium/Sulbactam Sodium (Unasyn/Ns 1.5 Gm/50 Ml) 1.5 gm in 50 mls @ 100 mls/hr IV Q6H [facility], [facility]; Protocol Last Infusion: 11/17/20 13:59 Dose: Infused Documented by: Vancomycin HCl (Vancomycin/Ns 1 Gm/250 Ml) 1 gm in 250 mls @ 166.667 mls/hr IV Q12H [facility] Last Admin: 11/17/20 12:39 Dose: 166.667 mls/hr Documented by: Insulin Glargine (Insulin Glargine 100 Units/Ml) 10 units SUB-Q QAMDIAB [facility] Last Admin: 11/17/20 10:08 Dose: 10 units Documented by: Insulin Human Lispro (Insulin Lispro 100 Unit/Ml) 0 unit SUB-Q ACHS [facility]; Protocol Last Admin: 11/17/20 12:51 Dose: 2 unit Documented by: Lisinopril (Lisinopril 10 Mg Tab) 10 mg PO QDAY [facility] Metoprolol Tartrate (Metoprolol Tartrate 100 Mg Tab) 100 mg PO BID [facility] Naloxone HCl (Naloxone 0.4 Mg/1 Ml Inj) 0.1 mg IV Q2MIN PRN PRN Reason: Res Rate </= 8 or 02 SAT < 92% Ondansetron HCl (Ondansetron 4 Mg/2 Ml Inj) 4 mg IV Q6H PRN PRN Reason: Nausea And Vomiting Oxycodone/Acetaminophen (Oxycodone /Acetaminophen 5-325mg Tab) 1 tab PO Q6H PRN PRN Reason: Pain, Moderate (4-6) Sodium Chloride (Sodium Chloride 0.9% 10 Ml Flush Syringe) 10 ml IV BID [facility] Last Admin: 11/17/20 09:56 Dose: Not Given Documented by: Sodium Chloride (Sodium Chloride 0.9% 10 Ml Flush Syringe) 10 ml IV PRN PRN PRN Reason: LINE FLUSH Review of Systems All systems: negative (10 point ROS performed and negative except for that li sted in HPI) Exam Vital Signs Temp Pulse Resp BP Pulse Ox 98.1 F 156 H 20 111/82 98 11/16/20 13:29 11/16/20 13:29 11/16/20 13:29 11/16/20 13:29 11/16/20 13:29 Narrative exam: Gen.: Awake, alert, oriented x3. No apparent distress ENT: Trachea midline. No lymphadenopathy. No scleral icterus or conjunctival pallor CV: S1, S2 present Respiratory: No audible wheezes Extremities: R medial malleolus wound almost completely healed. There is fluctuance of the medial plantar aspect of the right foot with overlying cellulitis and pinpoint opening in the skin without active drainage. no TTP. Foot is warm Results - Labs 11/16/20 14:39 11/17/20 04:41 Abnormal lab results 11/16/20 11/16/20 11/16/20 Range/Units 13:37 14:39 14:39 Lymph % (Auto) 13.1 L (13.4-35.0) % Seg Neutrophils % 81.1 H (40.0-70.0) % Sodium 131 L (137-145) mmol/L Potassium 5.3 H (3.6-5.0) mmol/L Chloride 97.2 L (98-107) mmol/L Glucose 330 H (75-100) mg/dL POC Glucose 335 H (70-105) mg/dL Hemoglobin A1c (4-6) % Alkaline Phosphatase 169 H (35-129) units/L 11/16/20 11/17/20 11/17/20 Range/Units 14:39 09:47 12:22 Lymph % (Auto) (13.4-35.0) % Seg Neutrophils % (40.0-70.0) % Sodium (137-145) mmol/L Potassium (3.6-5.0) mmol/L Chloride (98-107) mmol/L Glucose (75-100) mg/dL POC Glucose 207 H 187 H (70-105) mg/dL Hemoglobin A1c 13.3 H (4-6) % Alkaline Phosphatase (35-129) units/L Diabetes panel 11/16/20 11/16/20 11/17/20 Range/Units 14:39 14:39 04:41 Sodium 131 L (137-145) mmol/L Potassium 5.3 H 4.2 D (3.6-5.0) mmol/L Chloride 97.2 L (98-107) mmol/L Carbon Dioxide 22 (22-30) mmol/L BUN 17 (9-20) mg/dL Creatinine 1.1 (0.8-1.3) mg/dL Glucose 330 H (75-100) mg/dL Hemoglobin A1c 13.3 H (4-6) % Calcium 9.8 (8.4-10.2) mg/dL AST 15 (5-40) units/L ALT 28 (7-56) units/L Alkaline Phosphatase 169 H (35-129) units/L Total Protein 7.8 (6.3-8.2) g/dL Albumin 3.9 (3.9-5) g/dL Calcium panel 11/16/20 Range/Units 14:39 Calcium 9.8 (8.4-10.2) mg/dL Albumin 3.9 (3.9-5) g/dL Pituitary panel 11/16/20 11/17/20 Range/Units 14:39 04:41 Sodium 131 L (137-145) mmol/L Potassium 5.3 H 4.2 D (3.6-5.0) mmol/L Chloride 97.2 L (98-107) mmol/L Carbon Dioxide 22 (22-30) mmol/L BUN 17 (9-20) mg/dL Creatinine 1.1 (0.8-1.3) mg/dL Glucose 330 H (75-100) mg/dL Calcium 9.8 (8.4-10.2) mg/dL Adrenal panel 11/16/20 11/17/20 Range/Units 14:39 04:41 Sodium 131 L (137-145) mmol/L Potassium 5.3 H 4.2 D (3.6-5.0) mmol/L Chloride 97.2 L (98-107) mmol/L Carbon Dioxide 22 (22-30) mmol/L BUN 17 (9-20) mg/dL Creatinine 1.1 (0.8-1.3) mg/dL Glucose 330 H (75-100) mg/dL Calcium 9.8 (8.4-10.2) mg/dL Total Bilirubin 0.50 (0.1-1.2) mg/dL AST 15 (5-40) units/L ALT 28 (7-56) units/L Alkaline Phosphatase 169 H (35-129) units/L Total Protein 7.8 (6.3-8.2) g/dL Albumin 3.9 (3.9-5) g/dL - Imaging Additional studies: R foot xray Assessment and Plan 55 yo M with 1. abscess of right foot 2. poorly controlled DM - HbA1c 13.3 3. Afib Plan: 1. NPO p MN 2. Strict glucose control 3. Recommend incision and drainage of abscess - will perform in the OR tomorrow - scheduled for 7 am. Pt agreeable. 4. will obtain cultures in OR 5. continue abx 6. offloading 7. DVT ppx Thank you for this consultation. Please call with any questions or concerns. Evaluation and treatment of this patient was during the time of the national and state emergency arising from COVID19 coronavirus pandemic. Treatment and procedures performed meet the current and available best practice and guidelines for patient during the COVID pandemic.
--- NOTE | 2020-11-17 15:18 | Anesthesia Consultation ---
Anesthesia Consult and Med Hx Date of service: 11/17/20 - Airway Anesthetic Teeth Evaluation: Poor (multiple missing, broken teeth) ROM Head & Neck: Adequate Mental/Hyoid Distance: Adequate Mallampati Class: Class II Intubation Access Assessment: Probably Good - Pre-Operative Health Status ASA Pre-Surgery Classification: ASA3 Proposed Anesthetic Plan: General, MAC - Cardiovascular System Hx Hypertension: Yes Hx Coronary Artery Disease: No (high cholesterol) Hx Peripheral Vascular Disease: Yes (diabetic right foot) - Endocrine Hx Insulin Dependent Diabetes: Yes - Other Systems Hx Cancer: No - Additional Comments Anesthesia Medical History Comments: s/p right foot abscess 10/2020
--- NOTE | 2020-11-17 17:49 | Consultation ---
History of Present Illness Consult date: 11/17/20 Consult reason: other (a-flutter) History of present illness: Patient is a 55-year-old male with a history of hypertension, diabetes, and recently diagnosed A. fib/A-flutter. Patient presents to the hospital with complaints of right foot and heel pain. Per documentation patient has a hole in bottom of his foot and pus coming out. Patient is a poor historian. Patient was admitted to [facility] with similar complaints on October 25, 2020. During that admission patient was treated for sepsis and started on Eliquis patient was discharged on November 01. Cardiology is consulted because patient is in a flutter with RVR. Patient denies chest pain, palpitations, or shortness of breath. Echocardiogram 10/28/2020: LVEF is 50 to 55%. LV normal size. LV SF is normal. Mild LVH. RV SF is grossly normal. Mild TR, RVSP 28 mmHg. Past History Past Medical History: atrial fib, diabetes, hypertension, hyperlipidemia, other (Noncompliant with meds) Past Surgical History: Other (s/p I & D right ankle abscess 10/26/2020) Social history: single, full code. denies: smoking, alcohol abuse, prescription drug abuse, IV drug use Family history: no significant family history Medications and Allergies Allergies Allergy/AdvReac Type Severity Reaction Status Date / Time No Known Allergies Allergy Verified 11/16/20 13:25 Home Medications Medication Instructions Recorded Confirmed Last Taken Type Amoxicillin/K Clav Tab [Augmentin 1 each PO Q12HR #12 tablet 11/01/20 Unknown Rx 875MG TAB] Apixaban [Eliquis] 5 mg PO Q12HR #60 tablet 11/01/20 Unknown Rx Famotidine [Pepcid] 20 mg PO BID #60 tablet 11/01/20 Unknown Rx Gabapentin 100 mg PO Q8HR #90 capsule 11/01/20 Unknown Rx Insulin NPH, Human [NovoLIN N] 20 unit SUB-Q BIDDIAB #10 ml 11/01/20 Unknown Rx Insulin Regular, Human [HumuLIN R] 0 unit SQ AC #1 vial 11/01/20 Unknown Rx Metoprolol [Lopressor TAB] 100 mg PO BID #60 tablet 11/01/20 Unknown Rx Sulfamethoxazole/Trimethoprim 1 each PO Q12HR #12 tablet 11/01/20 Unknown Rx [Bactrim DS TAB] lisinopriL [Zestril TAB] 10 mg PO QDAY #30 tablet 11/01/20 Unknown Rx Active Meds: Active Medications Acetaminophen (Acetaminophen 325 Mg Tab) 650 mg PO Q4H PRN PRN Reason: Pain MILD(1-3)/Fever >100.5/LONG Apixaban (Apixaban 5 Mg Tab) 5 mg PO Q12HR [facility] Last Admin: 11/17/20 11:55 Dose: 5 mg Documented by: Cyclobenzaprine HCl (Cyclobenzaprine 10 Mg Tab) 10 mg PO Q8H PRN PRN Reason: Muscle Spasm Dextrose (Dextrose 50% In Water (25gm) 50 Ml Syringe) 50 ml IV Q30MIN PRN; Protocol PRN Reason: Hypoglycemia Docusate Sodium (Docusate Sodium 100 Mg Cap) 100 mg PO BID [facility] Last Admin: 11/17/20 11:55 Dose: 100 mg Documented by: Famotidine (Famotidine 20 Mg Tab) 20 mg PO BID [facility] Last Admin: 11/17/20 11:55 Dose: 20 mg Documented by: Gabapentin (Gabapentin 100 Mg Cap) 100 mg PO Q8HR [facility] Last Admin: 11/17/20 13:40 Dose: 100 mg Documented by: Hydromorphone HCl (Hydromorphone 1 Mg/1 Ml Inj) 0.5 mg IV Q3H PRN PRN Reason: Pain , Severe (7-10) Ampicillin Sodium/Sulbactam Sodium (Unasyn/Ns 1.5 Gm/50 Ml) 1.5 gm in 50 mls @ 100 mls/hr IV Q6H [facility]; Protocol Last Admin: 11/17/20 17:41 Dose: 100 mls/hr Documented by: Vancomycin HCl (Vancomycin/Ns 1 Gm/250 Ml) 1 gm in 250 mls @ 166.667 mls/hr IV Q12H [facility] Last Admin: 11/17/20 12:39 Dose: 166.667 mls/hr Documented by: Amiodarone HCl 150 mg/ (Dextrose) 100 mls @ 600 mls/hr IV ONCE ONE Stop: 11/17/20 17:51 Amiodarone HCl 900 mg/ (Dextrose) 500 mls @ 33.333 mls/hr IV DIRECT [facility]; Protocol Insulin Glargine (Insulin Glargine 100 Units/Ml) 10 units SUB-Q QAMDIAB [facility] Last Admin: 11/17/20 10:08 Dose: 10 units Documented by: Insulin Human Lispro (Insulin Lispro 100 Unit/Ml) 0 unit SUB-Q [facility]; Protocol Last Admin: 11/17/20 17:02 Dose: 2 unit Documented by: Lisinopril (Lisinopril 10 Mg Tab) 10 mg PO QDAY [facility] Naloxone HCl (Naloxone 0.4 Mg/1 Ml Inj) 0.1 mg IV Q2MIN PRN PRN Reason: Res Rate </= 8 or 02 SAT < 92% Ondansetron HCl (Ondansetron 4 Mg/2 Ml Inj) 4 mg IV Q6H PRN PRN Reason: Nausea And Vomiting Oxycodone/Acetaminophen (Oxycodone /Acetaminophen 5-325mg Tab) 1 tab PO Q6H PRN PRN Reason: Pain, Moderate (4-6) Sodium Chloride (Sodium Chloride 0.9% 10 Ml Flush Syringe) 10 ml IV BID [facility] Last Admin: 11/17/20 09:56 Dose: Not Given Documented by: Sodium Chloride (Sodium Chloride 0.9% 10 Ml Flush Syringe) 10 ml IV PRN PRN PRN Reason: LINE FLUSH Review of Systems All systems: negative Constitutional: no weight loss, no weight gain, no fever, no chills Ears, nose, mouth and throat: no nasal congestion, no nasal discharge, no sinus pressure Cardiovascular: no chest pain, no palpitations, no edema, no syncope, no shortness of breath, no dyspnea on exertion Respiratory: no cough, no cough with sputum, no shortness of breath, no dyspnea on exertion Gastrointestinal: no abdominal pain, no nausea, no vomiting, no diarrhea Integumentary: redness, wounds Neurological: no head injury, no transient paralysis, no paralysis, no weakness Psychiatric: no anxiety, no memory loss Endocrine: no cold intolerance, no heat intolerance Hematologic/Lymphatic: no easy bruising, no easy bleeding Physical Examination Last Vital Signs Temp 97.8 F 11/17/20 16:46 Pulse 101 H 11/17/20 17:31 Resp 20 11/17/20 17:31 BP 98/64 11/17/20 17:31 Pulse Ox 99 11/17/20 17:31 General appearance: no acute distress HEENT: Positive: PERRL Neck: Positive: trachea midline Cardiac: Positive: Irregularly Regular, Tachycardia Lungs: Positive: Normal Breath Sounds Neuro: Positive: Grossly Intact Abdomen: Positive: Soft, Active Bowel Sounds Skin: Positive: Wound (right foot) Extremities: Present: upper extr. pulses, lower extr. pulses. Absent: edema Results 11/16/20 14:39 11/17/20 04:41 Comprehensive Metabolic Panel 11/17/20 Range/Units 04:41 Potassium 4.2 D (3.6-5.0) mmol/L - Imaging and Cardiology Echo: report reviewed EKG: report reviewed, image reviewed EKG interpretations - Telemetry EKG Rhythm: Atrial Flutter - EKG Supraventricular dysrhythmia: atrial flutter Assessment and Plan Atrial Flutter * EKG showed A-flutter rate 152 * At time of assessment patient was A. flutter 100s on tele. Continue to monitor on telemetry * Echocardiogram 10/28/2020: LVEF is 50 to 55%. LV normal size. LV SF is normal. Mild LVH. RV SF is grossly normal. Mild TR, RVSP 28 mmHg. * Rate control: initiate amio bolus and amio gtt. Plan to transition back to outpatient medication of metoprolol 100 mg BID once stable * Continue Eliquis 5 mg Sepsis secondary to right lower extremity wound * Infectious diseases currently following Uncontrolled diabetes mellitus * Management per primary team DVT prophylaxis * Eliquis Patient seen in conjunction with Dr. Sarah Vela who agrees to this plan of care. Will follow - Patient Problems (1) Diabetic infection of right foot Current Visit: Yes Status: Acute (2) Foot pain, right Current Visit: Yes Status: Acute (3) Sepsis Current Visit: Yes Status: Acute Qualifiers: Sepsis type: sepsis due to unspecified organism Sepsis acute organ dysfunction status: without acute organ dysfunction Qualified Code(s): A41.9 - Sepsis, unspecified organism (4) Tachycardia Current Visit: Yes Status: Acute (5) Medical non-compliance Current Visit: Yes Status: Chronic (6) Atrial flutter Current Visit: No Status: Acute (7) T2DM (type 2 diabetes mellitus) Current Visit: No Status: Chronic
[2020-11-17] MEDS ORDERED: AMIODARONE 150 MG in DEXTROSE 5% IN WATER 97 ML IV ONE (18:00)
[2020-11-17] MEDS ORDERED: AMIODARONE 900 MG in DEXTROSE 5% IN WATER 482 ML IV SCH ×2 (19:00→19:51)
[2020-11-17] MEDS ORDERED: METOPROLOL TARTRATE 100 MG TAB PO SCH (22:00)
[2020-11-18] MEDS ORDERED: SODIUM HYPOCHLORITE, DAKIN'S FULL STRENGTH (0.5%) 473 ML TOPICAL SOLN IR ONE
[2020-11-18] MEDS: VANCOMYCIN/NS 1 GM/250 ML 1 GM/250 ML BAG IV SCH (00:11)
[2020-11-18] MEDS: AMPICILLIN/SULBACTA 1.5GM/50ML 1.5 GM/50 ML BAG IV SCH ×2 (00:12→05:59)
[2020-11-18] MEDS: GABAPENTIN 100 MG CAP PO SCH (05:59)
[2020-11-18 06:20] LABS: Blood Urea Nitrogen 10 mg/dL (9-20); Hemolysis Index 9
[2020-11-18 06:35] LABS: BUN/Creatinine Ratio 17
[2020-11-18] MEDS ORDERED: BUPIVACAINE/PF (0.5%) 5 MG/1 ML 30 ML VIAL INFILTRATI ONE ×2 (07:14)
[2020-11-18] MEDS ORDERED: SODIUM HYPOCHLORITE, DAKIN'S FULL STRENGTH (0.5%) 473 ML TOPICAL SOLN ONE (07:20)
[2020-11-18] MEDS ORDERED: fentaNYL 100 MCG/2 ML INJ ONE (07:27)
--- NOTE | 2020-11-18 07:45 | Progress Note ---
Assessment and Plan 55 yo M with 1. abscess of right foot 2. poorly controlled DM - HbA1c 13.3 3. Afib 4. noncompliance Plan: 1. Patient refuses surgery today. I explained to him that I do not feel the abscess will improve without incision and drainage however the patient states "he does not want my opinion" and only wants medical management. 2. Resume consistent carbohydrate diet 3. Strict glucose control 4. continue abx 5. offloading 6. DVT ppx 7. case management consult Patient interview and discussion of plan performed with [employer] placer line. Will s/o. Evaluation and treatment of this patient was during the time of the national and state emergency arising from COVID19 coronavirus pandemic. Treatment and procedures performed meet the current and available best practice and guidelines for patient during the COVID pandemic. Subjective Date of service: 11/18/20 Narrative: Pt seen and examined. States he squeezed out more blood and fluid from his abscess on his own. He does not feel he needs additional drainage/surgery. He wants only medications. He is afebrile. Objective Vital Signs - 12hr 11/17/20 11/17/20 11/17/20 19:51 20:01 20:11 Temperature Pulse Rate 99 H 104 H 101 H Respiratory 21 15 18 Rate Blood Pressure 102/58 96/59 96/59 O2 Sat by Pulse 98 97 97 Oximetry 11/17/20 11/18/20 11/18/20 22:18 01:00 04:47 Temperature 97.5 F L Pulse Rate 139 H 80 Respiratory 18 Rate Blood Pressure 117/75 O2 Sat by Pulse 100 99 Oximetry - General physical appearance Narrative Exam: Gen: AAOx3. NAD Ext: R plantar foot abscess with overlying cellulitis, fluctuance. Tiny opening without spontaneous drainage. Calllus buildup. - Labs 11/16/20 14:39 11/18/20 05:42 Diabetes panel 11/18/20 Range/Units 05:42 Sodium 140 D (137-145) mmol/L Potassium 4.2 (3.6-5.0) mmol/L Chloride 105.9 (98-107) mmol/L Carbon Dioxide 27 (22-30) mmol/L BUN 10 (9-20) mg/dL Creatinine 0.6 L (0.8-1.3) mg/dL Glucose 129 H (75-100) mg/dL Calcium 9.0 (8.4-10.2) mg/dL Calcium panel 11/18/20 Range/Units 05:42 Calcium 9.0 (8.4-10.2) mg/dL Pituitary panel 11/18/20 Range/Units 05:42 Sodium 140 D (137-145) mmol/L Potassium 4.2 (3.6-5.0) mmol/L Chloride 105.9 (98-107) mmol/L Carbon Dioxide 27 (22-30) mmol/L BUN 10 (9-20) mg/dL Creatinine 0.6 L (0.8-1.3) mg/dL Glucose 129 H (75-100) mg/dL Calcium 9.0 (8.4-10.2) mg/dL Adrenal panel 11/18/20 Range/Units 05:42 Sodium 140 D (137-145) mmol/L Potassium 4.2 (3.6-5.0) mmol/L Chloride 105.9 (98-107) mmol/L Carbon Dioxide 27 (22-30) mmol/L BUN 10 (9-20) mg/dL Creatinine 0.6 L (0.8-1.3) mg/dL Glucose 129 H (75-100) mg/dL Calcium 9.0 (8.4-10.2) mg/dL
[2020-11-18] MEDS ORDERED: propofoL 200 MG/20 ML VIAL IV ONE (07:48)
[2020-11-18] MEDS ORDERED: LIDOCAINE MPF (2%) 20 MG/1 ML VIAL 5 ML ONE ×2 (07:48)
[2020-11-18] MEDS: INSULIN LISPRO 100 UNIT/ML SUB-Q SCH (07:59)
[2020-11-18 08:49] VITALS: BP 122/83
[2020-11-18] MEDS ORDERED: LISINOPRIL 10 MG TAB PO SCH (10:00)
--- NOTE | 2020-11-18 10:09 | Discharge Summary ---
Providers - Providers Date of Admission: 11/16/20 23:13 Attending physician: BOONE GHOSH MD 11/16/20 23:40 Consult to Physician [CONS] Routine Comment: Consulting Provider: ALBERT CHATTERJEE Physician Instructions: Reason For Exam: est pt, rt foot cellulitis 11/17/20 00:36 Consult to Wound/ET Nurse [CONS] Routine Reason For Exam: wound eval, rt foot wound, 11/17/20 00:54 Consult to Dietitian/Nutrition [CONS] Routine Physician Instructions: Diabetic diet education Reason For Exam: Reason for Consult: Diet education 11/17/20 07:23 Consult to Physician [CONS] Routine Comment: Consulting Provider: DWAYNE CUEVAS Physician Instructions: Reason For Exam: DIABTEIC POOR HEALING FOOT WOUND 11/17/20 13:44 Consult to Physician [CONS] Routine Comment: Consulting Provider: ALAN BOOKER Physician Instructions: Reason For Exam: atrial flutter 11/18/20 07:59 Consult to Case Management [CONS] Routine Services Needed at Discharge: [employer] Head Notified:: n/a Additional Physician Instructions: Needs financial planning consultant paperwork Primary care physician: [employer] Hospitalization Reason for admission: foot abscess Condition: Stable Hospital course: 55-year-old male with history of hypertension, insulin-dependent diabetes mellitus, HLD, and recently diagnosed with paroxysmal atrial fibrillat ion on Eliquis who presents [facility] ED with complaints of right foot and right heel pain. Patient is a poor historian and only able to provide limited history. Of note patient was admitted with similar complaints on 10/25, and treated for sepsis secondary to right foot abscess and cellulitis,s/p surgical I&D, course complicated by development of atrial fibrillation in the setting of sepsis, and started on Eliquis with scheduled outpatient follow-up with cardiology. He was discharged on 11/01. Patient states that he is experiencing worsening right foot and heel pain for the past couple of days. Additionally he has a hole in the bottom of his foot and pus is coming out of it. He is noncompliant with meds. Denies fever, chills, cough, chest pain, palpitation, shortness of breath, headache, abdominal pain, recent fall/injury, recent sick exposure Patient seen and examined this morning, very insistent that he needs to leave the hospital and does not want any further treatment. I spoke to him and advised him of risk of losing his leg/foot. He declines and tells me it is his body and he knows what his body needs. Patient also was seen by surgery with the documentation is as below. 1. abscess of right foot 2. poorly controlled DM - HbA1c 13.3 3. Afib 4. noncompliance Plan: 1. Patient refuses surgery today. I explained to him that I do not feel the abscess will improve without incision and drainage however the patient states "he does not want my opinion" and only wants medical management. 2. Resume consistent carbohydrate diet 3. Strict glucose control 4. continue abx 5. offloading 6. DVT ppx 7. case management consult Patient interview and discussion of plan performed with [employer] staff interpreter line. Will s/o. 11/17: Patient has not been taking his medication due to cost. ID consulted to assist with management awaiting for wound care evaluation. We will give another liter bolus of fluid for possible tachycardia driven by sepsis. Patient does have a history of paroxysmal atrial fibrillation and is on beta-antonio which was decreased during this admission due to low blood pressure but will go back up to the normal dose. If heart rate is not controlled will obtain cardiology consultation for evaluation. We will also go ahead and get case management consultation to assist with medications on discharge. Case discussed in detail with the ID doctor and the patient plan stressed again. 11/18: Patient refusing further care, not wanting to wait for ID Right foot abscess and cellulitis -Status post surgical I&D (10/2020) -Previously treated with IV ABX and transitioned to oral ABX -MRI on 11/03 showed abscess but no osteomyelitis -Right foot x-ray reveals mild diffuse soft tissue swelling. No acute osseous abnormality or significant joint pathology is demonstrated. -Cultures pending -Start IV Unasyn and vancomycin -Wound care consult -Surgical consult pending Insulin-dependent diabetes mellitus -Uncontrolled with A1c>12.0 -POC BG monitoring -Schedule Lantus and sliding scale coverage -Patient may benefit from diabetic education, nutrition consult pending Recently diagnosed with paroxysmal atrial fibrillation -Currently sinus tachycardia at 154 bpm -Continue Eliquis 5 mg twice daily -Previously evaluated by [facility] with scheduled outpatient appointment with Dr. Booker on 11/25/20 -On beta-antonio -On continuous remote telemetry monitoring Hyperkalemia -Mild at 5.3 -Receiving IVF -Monitor HTN -Monitor BP -Resume home hypertensive meds Disposition: [id number] LEFT AGAINST MED ADVICE Final Discharge Diagnosis (Prints w/discharge instructions): Right foot abscess and cellulitis Time spent for discharge: 35 MINS Core Measure Documentation - Palliative Care Palliative Care/ Comfort Measures: Not Applicable - Core Measures Any of the following diagnoses?: none Exam - Physical Exam Narrative exam: General appearance: Present: No acute distress, alert and oriented 3, adult male - EENT Eyes: Present: PERRL, EOM intact ENT: hearing intact, missing teeth - Neck Neck: Present: supple, normal ROM - Respiratory Respiratory effort: Non-labored Respiratory: Clear throughout - Cardiovascular Rhythm: Sinus tachycardia Heart Sounds: Present: S1 & S2. Absent: rub, click - Extremities Extremities: no ischemia, pulses intact, right: Erythema, foot pedal edema, heel swelling with 2 open ulcerations and purulent drainage - Peripheral Assessment Peripheral Pulses: within normal limits - Abdominal General gastrointestinal: soft, non-tender, normal bowel sounds - Integumentary Integumentary: Present: warm, dry - Musculoskeletal Musculoskeletal: Able to move all extremities -Neurological Neurological: CN II-XII intact - Psychiatric Psychiatric: cooperative - Constitutional Vitals: Temp Pulse Resp BP Pulse Ox 98.7 F 80 18 122/83 99 11/18/20 07:48 11/18/20 04:47 11/18/20 07:48 11/18/20 07:48 11/18/20 01:00 Plan Activity: advance as tolerated, fall precautions Diet: diabetic Special Instructions: record daily weights, record daily BP diary, record blood sugar diary Follow up with: KELI HESTER MD [Primary Care Provider] - 3-5 Days JANKI ARAUJO MD [Staff Physician] - 7 Days Forms: AMA Form Prescriptions: Docusate Sodium [Colace CAP] 100 mg PO BID #20 capsule traMADoL [Ultram] 50 mg PO Q6HR PRN #14 tablet PRN Reason: Pain
[2020-11-18] MEDS: INSULIN GLARGINE 100 UNITS/ML SUB-Q SCH (10:13)
[2020-11-18] MEDS: DOCUSATE SODIUM 100 MG CAP PO SCH (10:14)
[2020-11-18] MEDS: FAMOTIDINE 20 MG TAB PO SCH (10:14)
[2020-11-18] MEDS: APIXABAN 5 MG TAB PO SCH (10:14)
--- NOTE | 2020-11-18 11:12 | Progress Note ---
Assessment and Plan A flutter RVR * Optimize rate control: Reduce amiodarone drip to 0.5 mg a minute, initiate metoprolol 25 mg twice daily * Anticoagulated on Eliquis. If surgery is planned recommend conversion to Lovenox. * Echocardiogram reviewed EF 50 to 55% Right foot abscess * Currently on IV antibiotics per primary team. ID consult has been recommended but patient is currently refusing all care and request to be discharged. Patient is declining any surgical options. Per primary team patient is refusing additional care at this point. Patient jostin l be discharged AGAINST MEDICAL ADVICE Patient has out patient f/u scheduled with Dr Cordova, [facility] specialists in our [place] office on 11/25/2020 at 1 PM. #[phone] This patient was seen in conjunction with Dr Sarah Vela who agrees with this assessment and plan of care - Patient Problems (1) Sepsis Status: Acute (2) Abscess of right foot Status: Acute (3) Cellulitis of right foot Status: Acute (4) DVT prophylaxis Status: Acute (5) T2DM (type 2 diabetes mellitus) Status: Chronic (6) Atrial flutter Status: Acute Subjective Date of service: 11/18/20 Principal diagnosis: Foot Abcess Interval history: Patient resting comfortably in bed no shortness of breath or chest pain overnight Telemetry reviewed: A flutter 90s no events Objective Last Vital Signs Temp 98.7 F 11/18/20 07:48 Pulse 82 11/18/20 10:15 Resp 18 11/18/20 07:48 BP 122/83 11/18/20 10:15 Pulse Ox 99 11/18/20 01:00 - Physical Examination HEENT: Positive: PERRL Neck: Positive: trachea midline Cardiac: Positive: irregularly irregular, S1/S2 Lungs: Positive: clear to auscultation, Normal Breath Sounds Neuro: Positive: Grossly Intact Abdomen: Positive: Soft, Active Bowel Sounds Skin: Positive: Wound (right foot) Musculoskeletal: No Pain Extremities: Present: upper extr. pulses, lower extr. pulses. Absent: edema - Labs and Meds Comprehensive Metabolic Panel 11/18/20 Range/Units 05:42 Sodium 140 D (137-145) mmol/L Potassium 4.2 (3.6-5.0) mmol/L Chloride 105.9 (98-107) mmol/L Carbon Dioxide 27 (22-30) mmol/L BUN 10 (9-20) mg/dL Creatinine 0.6 L (0.8-1.3) mg/dL Glucose 129 H (75-100) mg/dL Calcium 9.0 (8.4-10.2) mg/dL - Imaging and Cardiology EKG: report reviewed, image reviewed Echo: report reviewed - Telemetry EKG Rhythm: Atrial Flutter - EKG Supraventricular dysrhythmia: atrial flutter
[2020-11-18] MEDS ORDERED: AMIODARONE 900 MG in DEXTROSE 5% IN WATER 482 ML IV SCH (12:00)
--- NOTE | 2020-11-18 12:07 | Consultation ---
History of Present Illness - Reason for Consult Consult date: 11/18/20 - History of Present Illness 35-year-old uncontrolled diabetes presented to the hospital planing of swelling and drainage of his right foot. He has been admitted to [facility] and [facility] multiple times with past few months with the same complaint. He underwent I&D of abscess on 10/26/2020. MRI did not show osteomyelitis at that time. At present he is refusing surgery 3 of the abscess. Afebrile with normal white count. Blood cultures no growth so far. Imaging personally reviewed: Foot x-ray: Soft tissue swelling without evidence of osteo-. Review of Systems: Bold if positive, otherwise negative General: fevers, chills, rigors HEENT: visual disturbance, diplopia, eye pain Respiratory: cough, sputum, hemoptysis, shortness of breath Cardiovascular: chest pain, syncope Gastrointestinal: nausea, vomiting, diarrhea, abdominal pain Genitourinary: dysuria, hematuria, flank pain Musculoskeletal: neck pain, back pain, joint pain, edema Neurologic: headaches, seizures Hematologic: easy bruising or bleeding Endocrine: night sweats, acute weight loss Skin: rash, jaundice, redness Psychiatric: suicidal, homicidal ideation Past History Past Medical History: atrial fib, diabetes, hypertension, hyperlipidemia, other (Noncompliant with meds) Past Surgical History: Other (s/p I & D right ankle abscess 10/26/2020) Social history: single, full code. denies: smoking, alcohol abuse, prescription drug abuse, IV drug use Family history: no significant family history Medications and Allergies Allergies Allergy/AdvReac Type Severity Reaction Status Date / Time No Known Allergies Allergy Verified 11/16/20 13:25 Home Medications Medication Instructions Recorded Confirmed Last Taken Type Amoxicillin/K Clav Tab [Augmentin 1 each PO Q12HR #12 tablet 11/01/20 Unknown Rx 875MG TAB] Apixaban [Eliquis] 5 mg PO Q12HR #60 tablet 11/01/20 Unknown Rx Famotidine [Pepcid] 20 mg PO BID #60 tablet 11/01/20 Unknown Rx Gabapentin 100 mg PO Q8HR #90 capsule 11/01/20 Unknown Rx Metoprolol [Lopressor TAB] 100 mg PO BID #60 tablet 11/01/20 Unknown Rx Sulfamethoxazole/Trimethoprim 1 each PO Q12HR #12 tablet 11/01/20 Unknown Rx [Bactrim DS TAB] lisinopriL [Zestril TAB] 10 mg PO QDAY #30 tablet 11/01/20 Unknown Rx Docusate Sodium [Colace CAP] 100 mg PO BID #20 capsule 11/18/20 Unknown Rx Insulin NPH, Human [NovoLIN N] 20 unit SUB-Q BIDDIAB #10 ml 11/18/20 Unknown Rx Insulin Regular, Human [HumuLIN R] 0 unit SQ AC #1 vial 11/18/20 Unknown Rx traMADoL [Ultram] 50 mg PO Q6HR PRN #14 tablet 11/18/20 Unknown Rx Active Meds: Active Medications Acetaminophen (Acetaminophen 325 Mg Tab) 650 mg PO Q4H PRN PRN Reason: Pain MILD(1-3)/Fever >100.5/LONG Apixaban (Apixaban 5 Mg Tab) 5 mg PO Q12HR [facility] Last Admin: 11/18/20 10:14 Dose: 5 mg Documented by: Cyclobenzaprine HCl (Cyclobenzaprine 10 Mg Tab) 10 mg PO Q8H PRN PRN Reason: Muscle Spasm Last Admin: 11/18/20 10:14 Dose: 10 mg Documented by: Dextrose (Dextrose 50% In Water (25gm) 50 Ml Syringe) 50 ml IV Q30MIN PRN; Protocol PRN Reason: Hypoglycemia Docusate Sodium (Docusate Sodium 100 Mg Cap) 100 mg PO BID [facility] Last Admin: 11/18/20 10:14 Dose: 100 mg Documented by: Famotidine (Famotidine 20 Mg Tab) 20 mg PO BID [facility] Last Admin: 11/18/20 10:14 Dose: 20 mg Documented by: Gabapentin (Gabapentin 100 Mg Cap) 100 mg PO Q8HR [facility] Last Admin: 11/18/20 05:59 Dose: 100 mg Documented by: Hydromorphone HCl (Hydromorphone 1 Mg/1 Ml Inj) 0.5 mg IV Q3H PRN PRN Reason: Pain , Severe (7-10) Ampicillin Sodium/Sulbactam Sodium (Unasyn/Ns 1.5 Gm/50 Ml) 1.5 gm in 50 mls @ 100 mls/hr IV Q6H [facility]; Protocol Last Admin: 11/18/20 05:59 Dose: 100 mls/hr Documented by: Vancomycin HCl (Vancomycin/Ns 1 Gm/250 Ml) 1 gm in 250 mls @ 166.667 mls/hr IV Q12H [facility] Last Admin: 11/18/20 00:11 Dose: 166.667 mls/hr Documented by: Amiodarone HCl 900 mg/ (Dextrose) 500 mls @ 16.667 mls/hr IV DIRECT KAMERON Insulin Glargine (Insulin Glargine 100 Units/Ml) 10 units SUB-Q QAMDIAB [facility] Last Admin: 11/18/20 10:13 Dose: 10 units Documented by: Insulin Human Lispro (Insulin Lispro 100 Unit/Ml) 0 unit SUB-Q ACHS [facility]; Protocol Last Admin: 11/18/20 07:59 Dose: Not Given Documented by: Lisinopril (Lisinopril 10 Mg Tab) 10 mg PO QDAY [facility] Last Admin: 11/18/20 10:15 Dose: 10 mg Documented by: Metoprolol Tartrate (Metoprolol Tartrate 50 Mg Tab) 25 mg PO BID [facility] Naloxone HCl (Naloxone 0.4 Mg/1 Ml Inj) 0.1 mg IV Q2MIN PRN PRN Reason: Res Rate </= 8 or 02 SAT < 92% Ondansetron HCl (Ondansetron 4 Mg/2 Ml Inj) 4 mg IV Q6H PRN PRN Reason: Nausea And Vomiting Oxycodone/Acetaminophen (Oxycodone /Acetaminophen 5-325mg Tab) 1 tab PO Q6H PRN PRN Reason: Pain, Moderate (4-6) Sodium Chloride (Sodium Chloride 0.9% 10 Ml Flush Syringe) 10 ml IV BID [facility] Last Admin: 11/18/20 10:15 Dose: 10 ml Documented by: Sodium Chloride (Sodium Chloride 0.9% 10 Ml Flush Syringe) 10 ml IV PRN PRN PRN Reason: LINE FLUSH Physical Examination - Physical Exam Narrative exam: Physical Exam: Constitutional: Alert, cooperative. No acute distress Head, Ears, Nose: Normocephalic, atraumatic. External ears, nose normal Eyes: Conjunctivae/corneas clear. No icterus. No ptosis. Neck: Supple, no meningeal signs Oral: dentition fair, no thrush Cardiovascular: S1, S2 normal. Respiratory: Good air entry, clear to auscultation bilaterally GI: Soft, non-tender; bowel sounds normal. No peritoneal signs. Musculoskeletal: Right foot with heel wound and significant skin Skin: No rash or abscess Hem/Lymphatic: No palpable cervical or supraclavicular nodes. No lymphangitis Psych: Mood ok. Affect normal Neurological: Awake, alert, oriented. No gross abnormality - Constitutional Vitals: Vital Signs Temp Pulse Resp BP Pulse Ox 98.7 F 82 18 122/83 99 11/18/20 07:48 11/18/20 10:15 11/18/20 07:48 11/18/20 10:15 11/18/20 01:00 Temperature -Last 24 Hours Temperature 98.7 F Temperature 97.2 F Temperature 97.5 F Temperature 97.7 F Temperature 97.8 F Results - Labs CBC & Chem 7: 11/16/20 14:39 11/18/20 05:42 Labs: Abnormal lab results 11/17/20 11/17/20 11/17/20 Range/Units 12:22 16:40 22:16 Creatinine (0.8-1.3) mg/dL Glucose (75-100) mg/dL POC Glucose 187 H 154 H 137 H (70-105) mg/dL 11/18/20 11/18/20 Range/Units 05:42 07:44 Creatinine 0.6 L (0.8-1.3) mg/dL Glucose 129 H (75-100) mg/dL POC Glucose 134 H (70-105) mg/dL Assessment and Plan Cultures: Blood culture no growth so far A/P: 55-year-old man past medical history poorly controlled diabetes and noncompliance presents with right foot infection #Right foot infection with abscess: Refusing surgery. I highly recommend debriding the abscess as they are often resistant to treatment. #Noncompliance with medications and medical advice #Diabetes: tight glycemic control for best outcomes. Recs: -In the absence of debridement, recommend treatment with Bactrim DS every 12 hours and Keflex 500 mg every 6 hours to complete 14 days Thank you for the consult, we will continue to follow. Chayito Porter MD [facility] O: [phone] F: [phone]
[2020-11-18] MEDS ORDERED: METOPROLOL TARTRATE 50 MG TAB PO SCH (22:00)
== END 2020-11-18 12:22 | disposition left against medical advice (07) | DRG 872 ==
LOC: ED 12:14 → IMCU 23:13 → 3A 11-17 00:05 → 4A 11-17 19:37
PROVIDERS: ADMIT Internal Medicine Geriatric Medicine; ATTEND Internal Medicine
DX: A41.9 Sepsis, unspecified organism (principal); L03.115 Cellulitis of right lower limb; L02.611 Cutaneous abscess of right foot; I48.92 Unspecified atrial flutter; E11.628 Type 2 diabetes mellitus with other skin complications; I10 Essential (primary) hypertension; E78.5 Hyperlipidemia, unspecified; Z79.899 Other long term (current) drug therapy; Z79.4 Long term (current) use of insulin; Z91.19 Patient's noncompliance with other medical treatment and regimen; E87.5 Hyperkalemia; I48.0 Paroxysmal atrial fibrillation; E78.00 Pure hypercholesterolemia, unspecified; Z53.29 Procedure and treatment not carried out because of patient's decision for other reasons
CPT/HCPCS: 36415; 71045; 80048; 80053; 81001; 82140; 82805; 82962; 83036; 84132; 85025; 85610; 87040; 87086; 93005; 99291; G0378; J0282; J0295; J1815; J2543; J2704; J3010; J3370; J7030; J7050; J7060